=== PATIENT | female | born 1995 | race Caucasian/White ===

== ENCOUNTER 2019-02-26 15:30 | Emergency (ER) | payer BC ==
[2019-02-26] MEDS ORDERED: SODIUM CHLORIDE 0.9% 1,000 ML IV STA (16:19)
[2019-02-26] MEDS ORDERED: diphenhydrAMINE 50 MG/ML 1 ML VIAL IVP STA (16:20)
[2019-02-26] MEDS ORDERED: ONDANSETRON 4 MG/2 ML VIAL IVP STA (16:20)
--- NOTE | 2019-02-26 16:22 | ED ---
General Adult HPI - General Chief complaint: Headache Stated complaint: headache and dizziness Time Seen by Provider: 02/26/19 16:06 Source: patient Mode of arrival: wheelchair Limitations: no limitations - History of Present Illness Initial comments: Dictation was produced using [employer] dictation software. please excuse any grammatical, word or spelling errors. Chief Complaint: 23-year-old female presents with 8 days of headache and neck pain. History of Present Illness: Patient's 23-year-old female. Over the last 8 days she's been having headaches. She states the headaches are worse in the morning. She states that her neck is been hurting more than usual patient states that it's in the left posterior occiput area. Denies any neuro deficits. No vision changes. Patient states that pain is worse when lying down and sitting up. Patient denies any history of trauma. Patient is possibly . Patient fe els asymptomatic at this time. The ROS documented in this emergency department record has been reviewed and confirmed by me. Those systems with pertinent positive or negative responses have been documented in the HPI. All other systems are other negative and/or noncontributory. PHYSICAL EXAM: General Impression: Alert and oriented x3, not in acute distress HEENT: Normocephalic atraumatic, extra-ocular movements intact, pupils equal and reactive to light bilaterally, mucous membranes moist. Cardiovascular: Heart regular rate and rhythm, S1&S2 audible, no murmurs, rubs or gallops Chest: Lungs clear to auscultation bilaterally, no rhonchi, no wheeze, no rales Abdomen: Bowel sounds present, abdomen soft, non-tender, non-distended, no organomegaly Musculoskeletal: Pulses present and equal in all extremities, no peripheral edema Motor: no focal deficits noted Neurological: CN II-XII grossly intact, no focal motor or sensory deficits noted Skin: Intact with no visualized rashes Psych: Normal affect and mood ED course: 23yo Old female clinical presentation consistent with tension headache secondary to cervical strain. Signs upon arrival are within acceptable limits.Patient provided with headache cocktail patient. Reevaluated after several hours with improvement of symptoms. test negative. Patient prescription for Flexeril. Told to follow-up with PCP upon discharge. Return parameters discussed. - Related Data Previous Rx's Medication Instructions Recorded Ondansetron Odt [Zofran Odt] 4 mg PO Q8HR PRN #10 tab 12/12/14 Promethazine Suppository 25 mg RC QID #10 supp 12/12/14 [Phenergan] Cyclobenzaprine [Flexeril] 5 mg PO TID PRN #20 tablet 02/26/19 Allergies Allergy/AdvReac Type Severity Reaction Status Date / Time No Known Allergies Allergy Verified 02/26/19 15:41 Review of Systems ROS Statement: Those systems with pertinent positive or pertinent negative responses have been documented in the HPI. ROS Other: All systems not noted in ROS Statement are negative. Past Medical History Past Medical History: No Reported History History of Any Multi-Drug Resistant Organisms: None Reported Past Surgical History: No Surgical Hx Reported Past Psychological History: No Psychological Hx Reported Smoking Status: Never smoker Past Alcohol Use History: Occasional Past Drug Use History: None Reported General Exam Limitations: no limitations Course Vital Signs 02/26/19 15:39 Temperature 98.3 F Pulse Rate 88 Respiratory 18 Rate Blood Pressure 141/103 O2 Sat by Pulse 100 Oximetry Medical Decision Making - Lab Data Lab Results 02/26/19 Range/Units 16:30 Urine HCG, Qual Not Detected (Not Detectd) Disposition Clinical Impression: Headache Disposition: HOME SELF-CARE Condition: Good Instructions (If sedation given, give patient instructions): Acute Headache (ED) Prescriptions: Cyclobenzaprine [Flexeril] 5 mg PO TID PRN #20 tablet PRN Reason: Pain Is patient prescribed a controlled substance at d/c from ED?: No Referrals: Jose Alejandro Segal MD [Primary Care Provider] - 1-2 days Time of Disposition: 17:54
[2019-02-26] MEDS ORDERED: KETOROLAC 30 MG/ML 1 ML VIAL IVP STA (17:10)
[2019-02-26 18:34] VITALS: BP 118/72; PULSE 70; RESP 16; TEMP 98.6
== END 2019-02-26 18:33 | disposition home or self-care (01) ==
LOC: EC 15:30
DX: R51 Headache (principal); M54.2 Cervicalgia
CPT/HCPCS: 81025; 99284; 96374; 96375 ×2; 96361; J1200; J2405; J1885

== ENCOUNTER → 2019-11-26 | Outpatient (CLI) | payer BC ==
--- NOTE | 2019-11-26 15:28 | US ---
EXAMINATION TYPE: US abdomen complete DATE OF EXAM: 11/26/2019 COMPARISON: NONE CLINICAL HISTORY: R10.11 right upper quadrant abdominal pain. Pain EXAM MEASUREMENTS: Liver Length: 16.6 cm Gallbladder Wall: .2 cm CBD: .5 cm Spleen: 9.8 cm Right Kidney: 9.2 x 3.3 x 4.0 cm Left Kidney: 10.5 x 4.9 x 3.8 cm Pancreas: Obscured by bowel gas Liver: wnl Gallbladder: wnl Evidence for sonographic Romano's sign: No CBD: wnl Spleen: wnl Right Kidney: wnl Left Kidney: wnl Upper IVC: wnl Abd Aorta: wnl IMPRESSION: 1. Normal abdomen ultrasound
== END | disposition home or self-care (01) ==
LOC: RADUSWWP 14:13
PROVIDERS: ATTEND Internal Medicine Hematology & Oncology
DX: R10.11 Right upper quadrant pain (principal)
CPT/HCPCS: 76700

== ENCOUNTER 2020-07-15 03:06 | Emergency (ER) | payer BC ==
[2020-07-15 03:15] VITALS: RESP 18
--- NOTE | 2020-07-15 03:59 | ED ---
General Adult HPI - General Chief complaint: Shortness of Breath Stated complaint: BETTY Time Seen by Provider: 07/15/20 03:27 Source: patient Mode of arrival: ambulatory Limitations: no limitations - History of Present Illness Initial comments: Charito is a 25 yo female with PMH of brain tumor treated with resection, chemo and radiation in the past 15 mo. patient presents the ER today for evaluation of shortness of breath, subjective fever, chills, night sweats, shortness of breath, sore throat and URI-like symptoms. Patient does report she may have had contact with people with COVID 19 she was recently traveling and she has attended to weddings in the past month. Patient reports she's been feeling okay over the past week while traveling to the , however tonight she began to have sudden onset of symptoms prompted her come the ER for evaluation. - Related Data Previous Rx's Medication Instructions Recorded Ondansetron Odt [Zofran Odt] 4 mg PO Q8HR PRN #10 tab 12/12/14 Promethazine Suppository 25 mg RC QID #10 supp 12/12/14 [Phenergan] Cyclobenzaprine [Flexeril] 5 mg PO TID PRN #20 tablet 02/26/19 Pantoprazole [Protonix] 40 mg PO DAILY 14 Days #14 11/26/19 tablet. Allergies Allergy/AdvReac Type Severity Reaction Status Date / Time No Known Allergies Allergy Verified 07/15/20 03:15 Review of Systems ROS Statement: Those systems with pertinent positive or pertinent negative responses have been documented in the HPI. ROS Other: All systems not noted in ROS Statement are negative. Past Medical History Past Medical History: Cancer Additional Past Medical History / Comment(s): brain cancer History of Any Multi-Drug Resistant Organisms: None Reported Past Surgical History: No Surgical Hx Reported Additional Past Surgical History / Comment(s): craniotomy 2019 Past Psychological History: Depression Smoking Status: Never smoker Past Alcohol Use History: Occasional Past Drug Use History: None Reported General Exam - General Exam Comments Initial Comments: Physical Exam GENERAL: Patient is well-developed and well-nourished. Patient is nontoxic and well-hydrated and is in no distress. HENT: s/p craniotomy Atraumatic. EYES: PERRL, EOMI PULMONARY: Unlabored respirations. No audible rales rhonchi or wheezing was noted. CARDIOVASCULAR: There is a regular rate and rhythm without any murmurs gallops or rubs. ABDOMEN: Soft and nontender with normal bowel sounds. SKIN: Skin is clear with no lesions or rashes and otherwise unremarkable. : Deferred NEUROLOGIC: Patient is alert and oriented x3. Moving all extremities spontaneously MUSCULOSKELETAL: Normal extremities with adequate strength and full range of motion. No lower extremity swelling or edema. No calf tenderness. PSYCHIATRIC: Normal psychiatric evaluation. Limitations: no limitations Course Vital Signs 07/15/20 07/15/20 07/15/20 03:11 04:14 05:55 Temperature 98.7 F 100.3 F H Pulse Rate 91 89 Respiratory 18 18 18 Rate Blood Pressure 115/81 117/73 O2 Sat by Pulse 97 97 Oximetry EKG Findings - EKG Comments: EKG Findings:: Patient refused Medical Decision Making - Medical Decision Making Patient was seen and evaluated history is obtained from the patient 25-year-old female with normal vital signs reports subjective shortness of breath, fevers, chills and fatigue Patient could have had exposure to COVID 19 if she has been out socializing though she does report wearing her mask at all times Labs, chest x-ray, EKG were ordered Patient declined EKG when stated reason why but stated she didn't feel like she needed one CBC with leukocytosis, neutrophilia, and lymphocytopenia D-dimer is elevated Ferratin and LDH will be added onto the labs which were already obtained Results were discussed with the patient. I did recommend a CT pulmonary embolism study. Patient has had 2 in the past due to elevated d-dimer's. She has never had blood clot. Given her lab findings and possible exposure do have concern the patient could have COVID 19. This result was discussed with the patient. She was swabbed for COVID 19. At this time patient understands cannot absolutely rule out pulmonary embolism with out a computed tomography scan, however due to her concern for exposure to radiation patient would still like to decline. Patient has no tachycardia or hypoxia. Patient does understand she could be infected with COVID 19. She will quarantine herself in the home. A work note was provided for her as well who needs to 14 until the patient's testes either negative or quarantine for weeks if her test is positive. They both expressed understanding of this. Very close return parameters including any worsening chest pain, palpitation shortness of breath or new or concerning symptoms were discussed with the p shiloh. Patient discharged Home in stable condition - Lab Data Result diagrams: 07/15/20 04:08 07/15/20 04:08 Lab Results 07/15/20 07/15/20 07/15/20 Range/Units 04:08 04:08 04:08 WBC 14.9 H (3.8-10.6) k/uL RBC 4.49 (3.80-5.40) m/uL Hgb 13.4 (11.4-16.0) gm/dL Hct 40.7 (34.0-46.0) % MCV 90.6 (80.0-100.0) fL MCH 29.8 (25.0-35.0) pg MCHC 32.9 (31.0-37.0) g/dL RDW 12.8 (11.5-15.5) % Plt Count 287 (150-450) k/uL Neutrophils % 90 % Lymphocytes % 6 % Monocytes % 3 % Eosinophils % 1 % Basophils % 0 % Neutrophils # 13.4 H (1.3-7.7) k/uL Lymphocytes # 0.8 L (1.0-4.8) k/uL Monocytes # 0.5 (0-1.0) k/uL Eosinophils # 0.1 (0-0.7) k/uL Basophils # 0.0 (0-0.2) k/uL PT 9.3 (9.0-12.0) sec INR 0.9 (<1.2) APTT 25.0 (22.0-30.0) sec D-Dimer 1.31 H (<0.60) mg/L FEU Sodium 137 (137-145) mmol/L Potassium 4.3 (3.5-5.1) mmol/L Chloride 104 (98-107) mmol/L Carbon Dioxide 28 (22-30) mmol/L Anion Gap 5 mmol/L BUN 17 (7-17) mg/dL Creatinine 0.82 (0.52-1.04) mg/dL Est GFR (CKD-EPI)AfAm >90 (>60 ml/min/1.73 sqM) Est GFR (CKD-EPI)NonAf >90 (>60 ml/min/1.73 sqM) Glucose 103 H (74-99) mg/dL Calcium 9.2 (8.4-10.2) mg/dL Total Bilirubin 0.4 (0.2-1.3) mg/dL AST 24 (14-36) U/L ALT 16 (4-34) U/L Alkaline Phosphatase 70 (38-126) U/L Lactate Dehydrogenase (313-618) U/L Troponin I (0.000-0.034) ng/mL Total Protein 7.1 (6.3-8.2) g/dL Albumin 4.0 (3.5-5.0) g/dL Urine HCG, Qual (Not Detectd) 07/15/20 07/15/20 07/15/20 Range/Units 04:08 05:27 05:27 WBC (3.8-10.6) k/uL RBC (3.80-5.40) m/uL Hgb (11.4-16.0) gm/dL Hct (34.0-46.0) % MCV (80.0-100.0) fL MCH (25.0-35.0) pg MCHC (31.0-37.0) g/dL RDW (11.5-15.5) % Plt Count (150-450) k/uL Neutrophils % % Lymphocytes % % Monocytes % % Eosinophils % % Basophils % % Neutrophils # (1.3-7.7) k/uL Lymphocytes # (1.0-4.8) k/uL Monocytes # (0-1.0) k/uL Eosinophils # (0-0.7) k/uL Basophils # (0-0.2) k/uL PT (9.0-12.0) sec INR (<1.2) APTT (22.0-30.0) sec D-Dimer (<0.60) mg/L FEU Sodium (137-145) mmol/L Potassium (3.5-5.1) mmol/L Chloride (98-107) mmol/L Carbon Dioxide (22-30) mmol/L Anion Gap mmol/L BUN (7-17) mg/dL Creatinine (0.52-1.04) mg/dL Est GFR (CKD-EPI)AfAm (>60 ml/min/1.73 sqM) Est GFR (CKD-EPI)NonAf (>60 ml/min/1.73 sqM) Glucose (74-99) mg/dL Calcium (8.4-10.2) mg/dL Total Bilirubin (0.2-1.3) mg/dL AST (14-36) U/L ALT (4-34) U/L Alkaline Phosphatase (38-126) U/L Lactate Dehydrogenase 534 (313-618) U/L Troponin I <0.012 (0.000-0.034) ng/mL Total Protein (6.3-8.2) g/dL Albumin (3.5-5.0) g/dL Urine HCG, Qual Not Detected (Not Detectd) Disposition Clinical Impression: Shortness of breath with exposure to COVID-19 virus Disposition: HOME SELF-CARE Condition: Stable Additional Instructions: You need to Quarantine as though you are COVID19 positive Your test should result in 1-3 days, you will be called if it is positive Return to the ER for any worsening or development of new or concerning symptoms Is patient prescribed a controlled substance at d/c from ED?: No Referrals: Jose Alejandro Segal MD [Primary Care Provider] - 1-2 days
[2020-07-15 04:18] LABS: Basophils % (A) 0 %; Eosinophils # (A) 0.1 k/uL (0-0.7); Eosinophils % (A) 1 %; HCT 40.7 % (34.0-46.0); HGB 13.4 gm/dL (11.4-16.0); Lymphocytes # (A) 0.8 k/uL (1.0-4.8); Lymphocytes % (A) 6 %; MCH 29.8 pg (25.0-35.0); MCHC 32.9 g/dL (31.0-37.0); MCV 90.6 fL (80.0-100.0); Mean Platelet Volume 7.2; Monocytes # (A) 0.5 k/uL (0-1.0); Monocytes % (A) 3 %; Neutrophils # (A) 13.4 k/uL (1.3-7.7); Neutrophils % (A) 90 %; Platelet Count 287 k/uL (150-450); RBC 4.49 m/uL (3.80-5.40); RDW 12.8 % (11.5-15.5); WBC 14.9 k/uL (3.8-10.6)
--- NOTE | 2020-07-15 04:22 | XR ---
EXAMINATION TYPE: XR chest 2V DATE OF EXAM: 07/15/2020 COMPARISON: 12/12/2014 HISTORY: Cough TECHNIQUE: 2 views FINDINGS: Heart and mediastinum are normal. Lungs are clear. Diaphragm is normal. Bony thorax appears normal. IMPRESSION: Normal chest. No change.
[2020-07-15 04:28] LABS: ALT 16 U/L (4-34); AST 24 U/L (14-36); African American GFR (CKD) >90 (>60 ml/min/1.73 sqM); Alkaline Phosphatase 70 U/L (38-126); Anion Gap 5 mmol/L; Blood Urea Nitrogen 17 mg/dL (7-17); Calcium 9.2 mg/dL (8.4-10.2); Carbon Dioxide 28 mmol/L (22-30); Chloride 104 mmol/L (98-107); Glucose 103 mg/dL (74-99); Non-African American GFR(CKD) >90 (>60 ml/min/1.73 sqM); Potassium 4.3 mmol/L (3.5-5.1); Sodium 137 mmol/L (137-145); Total Bilirubin 0.4 mg/dL (0.2-1.3); Total Protein 7.1 g/dL (6.3-8.2)
[2020-07-15 04:40] LABS: INR 0.9 (<1.2); Prothrombin Time 9.3 sec (9.0-12.0)
[2020-07-15 05:21] LABS: D-Dimer 1.31 mg/L FEU (<0.60)
[2020-07-15 05:56] VITALS: BP 117/73; PULSE 89; TEMP 100.3
[2020-07-15 09:32] LABS: Ferritin 24.5 ng/mL (10.0-291.0)
== END 2020-07-15 05:56 | disposition home or self-care (01) ==
LOC: EC 03:06
DX: R06.02 Shortness of breath (principal); R50.9 Fever, unspecified; R53.83 Other fatigue; D72.829 Elevated white blood cell count, unspecified; D72.810 Lymphocytopenia; R79.89 Other specified abnormal findings of blood chemistry; Z20.828 Contact with and (suspected) exposure to other viral communicable diseases; Z85.841 Personal history of malignant neoplasm of brain
CPT/HCPCS: 36415; 85379; 80053; 82728; 83615; 84484; 85025; 85610; 85730; 81025; 71046; 99285; U0003

== ENCOUNTER 2020-08-29 18:40 | Emergency (ER) | payer BC ==
[2020-08-29 18:53] VITALS: RESP 16; TEMP 98.1
--- NOTE | 2020-08-29 19:33 | ED ---
General Adult HPI - General Chief complaint: Dizziness Stated complaint: Dizziness Time Seen by Provider: 08/29/20 19:09 Source: patient, RN notes reviewed, old records reviewed Mode of arrival: wheelchair Limitations: no limitations - History of Present Illness Initial comments: 25-year-old female patient to ED for evaluation. Patient reports that she has a glioblastoma removed last year. She reports that she developed some dizziness earlier today when she tilts her head back. She reports this was her primary symptom when she presented for the glioblastoma so she is concerned about that. She denies any chest pain shortness of breath or any other acute complaints. She is not currently undergoing any chemotherapy. Systemic: Pt denies fatigue, fever/chills, rash. Pt denies weakness, night sweats, weight loss. Neuro: Pt denies headache, visual disturbances, syncope or pre-syncope. HEENT: Pt denies ocular discharge or irritation, otalgia, rhinorrhea, pharyngitis or notable lymphadenopathy. Cardiopulmonary: Pt denies chest pain, SOB, heart palpitations, dyspnea on exertion. Abdominal/GI: Pt denies abdominal pain, n/v/d. : Pt denies dysuria, burning w/ urination, frequency/urgency. Denies new onset urinary or bowel incontinence. MSK: Pt denies myalgia, loss of strength or function in extremities. Neuro: Pt denies new onset weakness, paresthesias. - Related Data Previous Rx's Medication Instructions Recorded Ondansetron Odt [Zofran Odt] 4 mg PO Q8HR PRN #10 tab 12/12/14 Promethazine Suppository 25 mg RC QID #10 supp 12/12/14 [Phenergan] Cyclobenzaprine [Flexeril] 5 mg PO TID PRN #20 tablet 02/26/19 Pantoprazole [Protonix] 40 mg PO DAILY 14 Days #14 11/26/19 tablet. Allergies Allergy/AdvReac Type Severity Reaction Status Date / Time No Known Allergies Allergy Verified 08/29/20 18:53 Review of Systems ROS Statement: Those systems with pertinent positive or pertinent negative responses have been documented in the HPI. ROS Other: All systems not noted in ROS Statement are negative. Past Medical History Past Medical History: Cancer Additional Past Medical History / Comment(s): brain cancer History of Any Multi-Drug Resistant Organisms: None Reported Past Surgical History: No Surgical Hx Reported Additional Past Surgical History / Comment(s): craniotomy 2019 Past Psychological History: Depression Smoking Status: Never smoker Past Alcohol Use History: Rare Past Drug Use History: None Reported General Exam - General Exam Comments Initial Comments: Constitutional: NAD, AOX3, Pt has pleasant affect. HEENT: NC/AT, trachea midline, neck supple, no lymphadenopathy. Posterior pharynx non erythematous, without exudates. External ears appear normal, without discharge. Mucous membranes moist. Eyes PERRLA, EOM intact. There is no scleral icterus. No pallor noted. Cardiopulmonary: RRR, no murmurs, rubs or gallops, no JVD noted. Lungs CTAB in anterior and posterior concepcion. No peripheral edema. Abdominal exam: Abdomen soft and non-distended. Abdomen non-tender to palpation in all 4 quadrants. Bowel sounds active in LLQ. No hepatosplenomegaly. No ecchymosis Neuro: CN II-XII grossly intact. No nuchal rigidity. No raccon eyes, no knott sign, no hemotympanum. No cervical spinal tenderness. MSK: Full active ROM in upper and lower extremities, 5/5 stregnth. Limitations: no limitations Course Vital Signs 08/29/20 18:49 Temperature 98.1 F Pulse Rate 66 Respiratory 16 Rate Blood Pressure 118/78 O2 Sat by Pulse 98 Oximetry Medical Decision Making - Medical Decision Making 25 old female patient to ED for dizziness when she tilts her head back. Began about 2 hours ago. Patient's history of glioblastoma with resection and she is concerned about possible recurrence. She is denying any headache. Neurologic exam is intact. The investigations are unremarkable. Patient is adamantly declining CT due to concern for radiation. I discussed that without intracranial imaging we could not rule out potential life threatening acute process. Patient is also declining EKG. Patient will be provided a order for an MRI of her brain with results to her oncologist at her request. Pt is declining acute complaints at time of discharge. We'll discharge the patient follow up and re turn precautions. Case discussed with Dr. Carolina. - Lab Data Result diagrams: 08/29/20 19:32 08/29/20 19:32 Lab Results 08/29/20 08/29/20 08/29/20 Range/Units 19:32 19:32 19:32 WBC 7.7 (3.8-10.6) k/uL RBC 4.50 (3.80-5.40) m/uL Hgb 13.5 (11.4-16.0) gm/dL Hct 39.5 (34.0-46.0) % MCV 87.8 (80.0-100.0) fL MCH 29.9 (25.0-35.0) pg MCHC 34.0 (31.0-37.0) g/dL RDW 12.4 (11.5-15.5) % Plt Count 213 (150-450) k/uL MPV 7.2 Neutrophils % 74 % Lymphocytes % 17 % Monocytes % 5 % Eosinophils % 1 % Basophils % 0 % Neutrophils # 5.7 (1.3-7.7) k/uL Lymphocytes # 1.3 (1.0-4.8) k/uL Monocytes # 0.4 (0-1.0) k/uL Eosinophils # 0.1 (0-0.7) k/uL Basophils # 0.0 (0-0.2) k/uL Sodium 139 (137-145) mmol/L Potassium 4.0 (3.5-5.1) mmol/L Chloride 106 (98-107) mmol/L Carbon Dioxide 27 (22-30) mmol/L Anion Gap 6 mmol/L BUN 17 (7-17) mg/dL Creatinine 0.91 (0.52-1.04) mg/dL Est GFR (CKD-EPI)AfAm >90 (>60 ml/min/1.73 sqM) Est GFR (CKD-EPI)NonAf 87 (>60 ml/min/1.73 sqM) Glucose 111 H (74-99) mg/dL Calcium 9.2 (8.4-10.2) mg/dL Magnesium 2.2 (1.6-2.3) mg/dL Total Bilirubin 0.3 (0.2-1.3) mg/dL AST 23 (14-36) U/L ALT 13 (4-34) U/L Alkaline Phosphatase 68 (38-126) U/L Total Protein 7.2 (6.3-8.2) g/dL Albumin 4.0 (3.5-5.0) g/dL Urine HCG, Qual Not Detected (Not Detectd) Disposition Clinical Impression: Dizziness Disposition: HOME SELF-CARE Condition: Stable Instructions (If sedation given, give patient instructions): Dizziness (ED) Additional Instructions: Follow up with PCP and your team of oncology and surgical specialists tomorrow. Call for MRI tomorrow. Return to ED with any worsening symptoms. Is patient prescribed a controlled substance at d/c from ED?: No Referrals: Jose Alejandro Segal MD [Primary Care Provider] - 1-2 days Anastacio Michael MD [STAFF PHYSICIAN] - 1-2 days
[2020-08-29 19:53] LABS: Basophils % (A) 0 %; Eosinophils # (A) 0.1 k/uL (0-0.7); Eosinophils % (A) 1 %; HCT 39.5 % (34.0-46.0); HGB 13.5 gm/dL (11.4-16.0); Lymphocytes # (A) 1.3 k/uL (1.0-4.8); Lymphocytes % (A) 17 %; MCH 29.9 pg (25.0-35.0); MCV 87.8 fL (80.0-100.0); Mean Platelet Volume 7.2; Monocytes # (A) 0.4 k/uL (0-1.0); Monocytes % (A) 5 %; Neutrophils # (A) 5.7 k/uL (1.3-7.7); Neutrophils % (A) 74 %; Platelet Count 213 k/uL (150-450); RDW 12.4 % (11.5-15.5); WBC 7.7 k/uL (3.8-10.6)
[2020-08-29 20:02] LABS: ALT 13 U/L (4-34); AST 23 U/L (14-36); African American GFR (CKD) >90 (>60 ml/min/1.73 sqM); Alkaline Phosphatase 68 U/L (38-126); Anion Gap 6 mmol/L; Blood Urea Nitrogen 17 mg/dL (7-17); Calcium 9.2 mg/dL (8.4-10.2); Carbon Dioxide 27 mmol/L (22-30); Chloride 106 mmol/L (98-107); Glucose 111 mg/dL (74-99); Magnesium 2.2 mg/dL (1.6-2.3); Non-African American GFR(CKD) 87 (>60 ml/min/1.73 sqM); Sodium 139 mmol/L (137-145); Total Bilirubin 0.3 mg/dL (0.2-1.3); Total Protein 7.2 g/dL (6.3-8.2)
[2020-08-29 21:07] VITALS: BP 113/76; PULSE 77
== END 2020-08-29 21:00 | disposition home or self-care (01) ==
LOC: EC 18:40
DX: R42 Dizziness and giddiness (principal); Z85.841 Personal history of malignant neoplasm of brain; Z98.890 Other specified postprocedural states
CPT/HCPCS: 36415; 80053; 81025; 83735; 85025; 99284

== ENCOUNTER 2021-05-19 23:40 | Emergency (ER) | payer BC ==
[2021-05-19 23:51] VITALS: BP 117/89; PULSE 88; RESP 24; TEMP 98.2
--- NOTE | 2021-05-20 00:57 | ED ---
Female Urogenital HPI - General Chief complaint: Urogenital Stated complaint: Urogenital Time Seen by Provider: 05/19/21 23:53 Source: patient Mode of arrival: ambulatory Limitations: no limitations - History of Present Illness Initial comments: Patient is a 26-year-old female presenting to the emergency emergency department with concerns for a tampon stuck in her vagina. Patient states that she last used tampon 2 days ago. She noticed an odor today and was able to feel the tampon was unable to retrieve it. She denies any fever or chills, no pelvic pain, no nausea or vomiting. She denies being . She has no further complaints. Last Menstrual Period: 05/16/21 - Related Data Previous Rx's Medication Instructions Recorded Ondansetron Odt [Zofran Odt] 4 mg PO Q8HR PRN #10 tab 12/12/14 Promethazine Suppository 25 mg RC QID #10 supp 12/12/14 [Phenergan] Cyclobenzaprine [Flexeril] 5 mg PO TID PRN #20 tablet 02/26/19 Pantoprazole [Protonix] 40 mg PO DAILY 14 Days #14 11/26/19 tablet. Doxycycline Monohydrate [Monodox] 100 mg PO BID 5 Days #10 cap 05/20/21 Allergies Allergy/AdvReac Type Severity Reaction Status Date / Time No Known Allergies Allergy Verified 05/19/21 23:51 Review of Systems ROS Statement: Those systems with pertinent positive or pertinent negative responses have been documented in the HPI. ROS Other: All systems not noted in ROS Statement are negative. Past Medical History Past Medical History: Cancer Additional Past Medical History / Comment(s): brain cancer History of Any Multi-Drug Resistant Organisms: None Reported Past Surgical History: No Surgical Hx Reported Additional Past Surgical History / Comment(s): craniotomy 2019 Past Psychological History: Depression Smoking Status: Never smoker Past Alcohol Use History: Rare Past Drug Use History: None Reported General Exam - General Exam Comments Initial Comments: GENERAL: Patient is well-developed and well-nourished. Patient is nontoxic and in no acute distress. HEAD: Atraumatic, normocephalic. EYES: Pupils equal round and reactive to light, extraocular movements intact, sclera anicteric, conjunctiva are normal. Eyelids were unremarkable. LUNGS: Unlabored respirations. Breath sounds clear to auscultation bilaterally and equal. No wheezes rales or rhonchi. HEART: Regular rate and rhythm without murmurs, rubs or gallops. ABDOMEN: Soft, nontender, normoactive bowel sounds. No guarding, no rebound. No masses appreciated. MUSCULOSKELETAL: Normal extremities with adequate strength and normal range of motion, no pitting or edema. No clubbing or cyanosis. NEUROLOGICAL: Patient is alert and oriented x 3. SKIN: Warm, Dry, normal turgor, no rashes or lesions noted. Limitations: no limitations External exam: Present: normal external exam Speculum exam: Present: foreign body (Tampon) By manual exam: Present: normal by manual exam Course Vital Signs 05/19/21 23:45 Temperature 98.2 F Pulse Rate 88 Respiratory 24 Rate Blood Pressure 117/89 O2 Sat by Pulse 99 Oximetry Procedures - Procedures Initial comment: Foreign body removal from vagina: forceps are used to remove a tampon. She tolerated procedure well. No complications. Medical Decision Making - Medical Decision Making Patient is a 26-year-old female here with a tampon stuck. No fevers, no abdominal pain. I was able to retrieve the tampon without, occasions. I will put her on a few days of antibiotic. Patient is agreement with this plan of care. She'll follow-up with her physician as needed. Return parameters were discussed with her and she verbalized understanding. Disposition Clinical Impression: Vaginal foreign body Disposition: HOME SELF-CARE Condition: Stable Instructions (If sedation given, give patient instructions): Vaginal Foreign Body (ED) Additional Instructions: Please return to the Emergency Department if symptoms worsen or any other concerns. Take antibiotic as prescribed. Prescriptions: Doxycycline Monohydrate [Monodox] 100 mg PO BID 5 Days #10 cap Is patient prescribed a controlled substance at d/c from ED?: No Referrals: Jose Alejandro Segal MD [Primary Care Provider] - 1-2 days Time of Disposition: 00:55
== END 2021-05-20 01:05 | disposition home or self-care (01) ==
LOC: EC 23:40
DX: T19.2XXA Foreign body in vulva and vagina, initial encounter (principal); W45.8XXA Other foreign body or object entering through skin, initial encounter
CPT/HCPCS: 99283

== ENCOUNTER 2022-07-23 16:50 | Emergency (ER) | payer MEDICARE ==
[2022-07-23 17:13] VITALS: RESP 18; TEMP 98.3
[2022-07-23] MEDS ORDERED: SODIUM CHLORIDE 0.9% 1,000 ML IV STA (17:36)
--- NOTE | 2022-07-23 17:45 | ED ---
Dizziness HPI - General Source: patient, family, RN notes reviewed, old records reviewed Mode of arrival: ambulatory Limitations: no limitations - History of Present Illness MD Complaint: dizziness, near syncope -: month(s) Timing: constant Description: off-balance, difficulty walking, near-syncope History of Same: Yes History of Trauma: No Improves With: rest Worsens With: position <Rudy Watters - Last Filed: 07/23/22 19:20> <Sukh Nicholas - Last Filed: 07/23/22 20:02> - General Chief Complaint: Dizziness Stated Complaint: Dizzy,HP issues,brain cancer Time Seen by Provider: 07/23/22 17:18 - History of Present Illness Initial Comments: 27-year-old female presents to the emergency room with complaints of dizziness with position changes ongoing for over a month but worse over the last 2 days. Patient states she does have a history of glioblastoma 2019 did undergo surgery radiation and chemotherapy. She states she was placed on Avastin for surrounding necrosis and stopped taking it in February. Due to her Avastin use she developed hypertension and was placed on hydrochlorothiazide. She states that more frequently she feels dizzy with position changes and today had 2 near syncopal episodes. Denies any chest pain or difficulty breathing, no headaches or focal motor deficits. 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 (Rudy Watters) - Related Data Home Medications Medication Instructions Recorded Confirmed norgestimate-ethinyl estradioL 1 tab PO DAILY 12/17/21 05/21/22 [Sprintec 28 Day Tablet] Escitalopram [Lexapro] 2 tab PO DAILY 12/31/21 05/21/22 Omeprazole 1 tab PO DAILY 12/31/21 05/21/22 Sucralfate [Carafate] 1 tab PO TID 12/31/21 05/21/22 buPROPion HCL [Wellbutrin XL] 1 tab PO DAILY 12/31/21 05/21/22 hydroCHLOROthiazide [Hydrodiuril] 25 mg PO DAILY 02/26/22 05/21/22 dexAMETHasone [Decadron] 8 mg PO DAILY 03/12/22 05/21/22 Previous Rx's Medication Instructions Recorded Ondansetron Odt [Zofran Odt] 4 mg PO Q8HR PRN #10 tab 12/12/14 Allergies Allergy/AdvReac Type Severity Reaction Status Date / Time No Known Allergies Allergy Verified 07/23/22 17:13 Review of Systems ROS Other: All systems not noted in ROS Statement are negative. <Rudy Watters - Last Filed: 07/23/22 19:20> ROS Other: All systems not noted in ROS Statement are negative. <Sukh Nicholas Madhav - Last Filed: 07/23/22 20:02> ROS Statement: Those systems with pertinent positive or pertinent negative responses have been documented in the HPI. Past Medical History Past Medical History: Cancer Additional Past Medical History / Comment(s): brain cancer-Glioblastoma History of Any Multi-Drug Resistant Organisms: None Reported Past Surgical History: No Surgical Hx Reported Additional Past Surgical History / Comment(s): craniotomy 2019 Past Psychological History: Depression Smoking Status: Never smoker Past Alcohol Use History: None Reported Past Drug Use History: None Reported <Rudy Watters - Last Filed: 07/23/22 19:20> General Exam Limitations: no limitations General appearance: alert, in no apparent distress Head exam: Present: atraumatic Eye exam: Absent: scleral icterus, conjunctival injection, periorbital swelling ENT exam: Present: mucous membranes moist Neck exam: Present: normal inspection, full ROM. Absent: tenderness, me ningismus Respiratory exam: Present: normal lung sounds bilaterally. Absent: respiratory distress, wheezes, rales, rhonchi, stridor, chest wall tenderness, accessory muscle use Cardiovascular Exam: Present: regular rate, normal heart sounds GI/Abdominal exam: Present: soft. Absent: distended, tenderness, guarding, rebound, rigid Neurological exam: Present: alert, oriented X3 Expanded Patient oriented to: Present: person, place, time Speech: Present: fluid speech Eye Response: (4) open spontaneously Motor Response: (6) obeys commands Verbal Response: (5) oriented [place] Total: 15 Psychiatric exam: Present: normal affect, normal mood Skin exam: Present: warm, dry, normal color. Absent: cyanosis, diaphoretic, pallor <Rudy Watters - Last Filed: 07/23/22 19:20> Course Vital Signs 07/23/22 07/23/22 17:09 19:11 Temperature 98.3 F Pulse Rate 119 H Pulse Rate [ 89 Pulse Oximetery ] Pulse Rate [ 112 H Standing Pulse Oximetery] Pulse Rate [ 89 Supine Pulse Oximetery] Respiratory 18 Rate Blood Pressure 126/83 Blood Pressure 123/89 [Right Arm Sitting] Blood Pressure 122/90 [Right Arm Standing] Blood Pressure 110/79 [Right Arm Supine] O2 Sat by Pulse 99 Oximetry EKG Findings - EKG Comments: EKG Findings:: EKG: Sinus rhythm rate of 83, SD interval 140, QRS duration 84, QTC 403, no ST segment changes. <Sukh Nicholas - Last Filed: 07/23/22 20:02> Medical Decision Making - Lab Data Result diagrams: 07/23/22 18:20 07/23/22 18:20 <Rudy Watters - Last Filed: 07/23/22 19:20> - Lab Data Result diagrams: 07/23/22 18:20 07/23/22 18:20 <Sukh Nicholas - Last Filed: 07/23/22 20:02> - Medical Decision Making Patient presents with complaints of dizziness with position changes worsening over the past month. Patient states she believes it is directly related to hydrochlorothiazide use. She was placed on hydrochlorothiazide after she was taking Avastin which elevated her blood pressure. She stopped taking Avastin in February but continues to take hydrochlorothiazide. Orthostatic blood pressures were taken showing an elevation in heart rate from s itting at 89 to standing 112 with patient symptomatic. Chest x-ray shows no acute cardiopulmonary disease or process. There is evidence of leukocytosis however patient did just finish a 5 day course of prednisone for Becerra's palsy last week. Electrolytes are unremarkable. Urinalysis is clear. Patient does have a history of glioblastoma and does have a follow-up appointment with Dr. Michael this . EKG is pending. IV fluids continue to infuse. Repeat vital signs and reassessment required. Case was signed out to Dr. Nicholas (Rudy Watters) Patient reevaluated, resting, fluid, symptoms improved with hydration. Patient has close follow-up with her oncologist. She will discontinue hydrochlorothiazide, drink plenty of fluid. She will return with worsening or changing symptoms. (Sukh Nicholas) - Lab Data Lab Results 07/23/22 07/23/2207/23/22 Range/Units 18:20 18:20 18:20 WBC 14.5 H (3.8-10.6) k/uL RBC 4.87 (3.80-5.40) m/uL Hgb 14.4 (11.4-16.0) gm/dL Hct 41.5 (34.0-46.0) % MCV 85.1 D (80.0-100.0) fL MCH 29.6 (25.0-35.0) pg MCHC 34.8 (31.0-37.0) g/dL RDW 12.9 (11.5-15.5) % Plt Count 261 (150-450) k/uL MPV 7.6 Neutrophils % 75 % Lymphocytes % 18 % Monocytes % 4 % Eosinophils % 1 % Basophils % 1 % Neutrophils # 10.9 H (1.3-7.7) k/uL Lymphocytes # 2.6 (1.0-4.8) k/uL Monocytes # 0.5 (0-1.0) k/uL Eosinophils # 0.2 (0-0.7) k/uL Basophils # 0.1 (0-0.2) k/uL Sodium 133 L (137-145) mmol/L Potassium 3.4 L (3.5-5.1) mmol/L Chloride 98 (98-107) mmol/L Carbon Dioxide 24 (22-30) mmol/L Anion Gap 11 mmol/L BUN 9 (7-17) mg/dL Creatinine 0.74 (0.52-1.04) mg/dL Est GFR (CKD-EPI)AfAm >90 (>60 ml/min/1.73 sqM) Est GFR (CKD-EPI)NonAf >90 (>60 ml/min/1.73 sqM) Glucose 81 (74-99) mg/dL Calcium 9.2 (8.4-10.2) mg/dL Total Bilirubin 0.4 (0.2-1.3) mg/dL AST 22 (14-36) U/L ALT 26 (4-34) U/L Alkaline Phosphatase 104 (38-126) U/L Total Protein 7.0 (6.3-8.2) g/dL Albumin 4.1 (3.5-5.0) g/dL Urine Color Light Yellow Urine Appearance Clear (Clear) Urine pH 6.0 (5.0-8.0) Ur Specific [place] 1.008 (1.001-1.035) Urine Protein Negative (Negative) Urine Glucose (UA) Negative (Negative) Urine Ketones Negative (Negative) Urine Blood Negative (Negative) Urine Nitrite Negative (Negative) Urine Bilirubin Negative (Negative) Urine Urobilinogen <2.0 (<2.0) mg/dL Ur Leukocyte Esterase Negative (Negative) Disposition Is patient prescribed a controlled substance at d/c from ED?: No <Rudy Watters - Last Filed: 07/23/22 19:20> <Sukh Nicholas - Last Filed: 07/23/22 20:02> Clinical Impression: Orthostatic hypotension, Near syncope Disposition: HOME SELF-CARE Condition: Good Instructions (If sedation given, give patient instructions): Syncope (ED) Additional Instructions: Increase your fluid intake. Change positions slowly. Do not drive until mal red by a primary care doctor. Discontinue hydrochlorothiazide keep diary of your blood pressure each morning. Follow-up with your primary care doctor this week. Keep your appointment with your oncologist as scheduled. Return to the emergency room with any new or concerning symptoms. Referrals: Elizabeth Zapata NPC [REFERRING] - 1-2 days
[2022-07-23 18:28] LABS: Appearance,Urine Clear (Clear); Basophils # (A) 0.1 k/uL (0-0.2); Basophils % (A) 1 %; Bilirubin,Urine Negative (Negative); Blood,Urine Negative (Negative); Color,Urine Light Yellow; Eosinophils # (A) 0.2 k/uL (0-0.7); Eosinophils % (A) 1 %; Glucose,Urine (UA) Negative (Negative); HCT 41.5 % (34.0-46.0); HGB 14.4 gm/dL (11.4-16.0); Ketones,Urine Negative (Negative); Leukocyte Esterase,Urine Negative (Negative); Lymphocytes # (A) 2.6 k/uL (1.0-4.8); Lymphocytes % (A) 18 %; MCH 29.6 pg (25.0-35.0); MCHC 34.8 g/dL (31.0-37.0); Mean Platelet Volume 7.6; Monocytes # (A) 0.5 k/uL (0-1.0); Monocytes % (A) 4 %; Neutrophils # (A) 10.9 k/uL (1.3-7.7); Neutrophils % (A) 75 %; Nitrite,Urine Negative (Negative); Platelet Count 261 k/uL (150-450); Protein,Urine Negative (Negative); RBC 4.87 m/uL (3.80-5.40); RDW 12.9 % (11.5-15.5); Specific Gravity,Urine 1.008 (1.001-1.035); Urobilinogen,Urine <2.0 mg/dL (<2.0); WBC 14.5 k/uL (3.8-10.6)
[2022-07-23 18:32] LABS: MCV 85.1 fL (80.0-100.0)
[2022-07-23 18:47] LABS: ALT 26 U/L (4-34); AST 22 U/L (14-36); African American GFR (CKD) >90 (>60 ml/min/1.73 sqM); Albumin 4.1 g/dL (3.5-5.0); Alkaline Phosphatase 104 U/L (38-126); Anion Gap 11 mmol/L; Blood Urea Nitrogen 9 mg/dL (7-17); Calcium 9.2 mg/dL (8.4-10.2); Carbon Dioxide 24 mmol/L (22-30); Chloride 98 mmol/L (98-107); Glucose 81 mg/dL (74-99); Non-African American GFR(CKD) >90 (>60 ml/min/1.73 sqM); Potassium 3.4 mmol/L (3.5-5.1); Sodium 133 mmol/L (137-145); Total Bilirubin 0.4 mg/dL (0.2-1.3)
--- NOTE | 2022-07-23 19:17 | XR ---
EXAMINATION TYPE: XR chest 2V DATE OF EXAM: 07/23/2022 7:00 PM COMPARISON: Chest radiographs from 07/15/2020 TECHNIQUE: XR chest 2V Frontal and lateral views of the chest. CLINICAL INDICATION:Female, 27 years old with history of syncope; FINDINGS: Lungs/Pleura: There is no evidence of pleural effusion, focal consolidation, or pneumothorax. Pulmonary vascularity: Unremarkable. Heart/mediastinum: Cardiomediastinal silhouette is unremarkable. Musculoskeletal: No acute osseous pathology. IMPRESSION: No acute cardiopulmonary disease/process.
[2022-07-23 20:11] VITALS: BP 124/88; PULSE 86
== END 2022-07-23 20:11 | disposition home or self-care (01) ==
LOC: EC 16:50
DX: I95.1 Orthostatic hypotension (principal); F32.A Depression, unspecified; Z79.899 Other long term (current) drug therapy
CPT/HCPCS: 36415; 71046; 80053; 81003; 85025; 93005; 96360; 99284

== ENCOUNTER 2022-07-30 19:13 | Emergency (ER) | payer MEDICARE ==
[2022-07-30] MEDS ORDERED: METOCLOPRAMIDE 5 MG/ML 2 ML VIAL IVP STA (21:36)
[2022-07-30] MEDS ORDERED: diphenhydrAMINE 50 MG/ML 1 ML VIAL IVP STA (21:36)
[2022-07-30] MEDS ORDERED: SODIUM CHLORIDE 0.9% 1,000 ML IV STA (21:36)
[2022-07-30] MEDS ORDERED: DEXAMETHASONE SOD PHOSPHATE 10 MG/ML 1 ML VIAL IV STA (21:36)
[2022-07-30] MEDS ORDERED: MAGNESIUM SULFATE-D5W PMX 1 GM in DEXTROSE/WATER 1 100ML.BAG IVPB ONE (21:36)
--- NOTE | 2022-07-30 21:37 | ED ---
Headache HPI - General Chief Complaint: Headache Stated Complaint: headache, glioblastoma Time Seen by Provider: 07/30/22 19:18 Mode of arrival: ambulatory Limitations: no limitations - History of Present Illness Initial Comments: 27-year-old female with past medical history of glioblastoma status post resection in 2019 who presents to the emergency room with reported headache. She reports that she began having a global headache yesterday. Took 800 mg ibuprofen at home without any improvement in her symptoms. Patient has history of glioblastoma that was resected in 2019 and then reoccurred in 2019. Patient went through chemo, radiation and gamma knife. Reports that throughout her treatment she has not had any headaches so this is different for her. Denies any head trauma. Does have blurred vision which has been chronic. Admits to nausea with one episode of vomiting. No fevers. No neck pain. Follows with an oncologist at [place]. She is scheduled to have an MRI on Friday. No other alleviating, precipitating or modifying factors - Related Data Home Medications Medication Instructions Recorded Confirmed norgestimate-ethinyl estradioL 1 tab PO DAILY 12/17/21 07/30/22 [Sprintec 28 Day Tablet] Omeprazole 40 tab PO DAILY 12/31/21 07/30/22 buPROPion HCL [Wellbutrin XL] 150 tab PO DAILY 12/31/21 07/30/22 hydroCHLOROthiazide [Hydrodiuril] 25 mg PO DAILY 02/26/22 07/30/22 Acyclovir [Zovirax] 400 mg PO BID 07/30/22 07/30/22 Escitalopram [Lexapro] 10 mg PO DAILY 07/30/22 07/30/22 Famotidine 40 mg PO DAILY 07/30/22 07/30/22 Allergies Allergy/AdvReac Type Severity Reaction Status Date / Time No Known Allergies Allergy Verified 07/30/22 20:09 Review of Systems ROS Statement: Those systems with pertinent positive or pertinent negative responses have been documented in the HPI. ROS Other: All systems not noted in ROS Statement are negative. Past Medical History Past Medical History: Cancer Additional Past Medical History / Comment(s): brain cancer-Glioblastoma History of Any Multi-Drug Resistant Organisms: None Reported Past Surgical History: No Surgical Hx Reported Additional Past Surgical History / Comment(s): craniotomy 2019 Past Psychological History: Depression Smoking Status: Never smoker Past Alcohol Use History: None Reported Past Drug Use History: None Reported General Exam Limitations: no limitations General appearance: alert, in no apparent distress Head exam: Present: atraumatic, normocephalic, other (right facial droop involving upper and lower face) Eye exam: Present: normal appearance, PERRL, EOMI. Absent: scleral icterus, conjunctival injection, periorbital swelling ENT exam: Present: normal exam, mucous membranes moist Neck exam: Present: normal inspection. Absent: tenderness, meningismus, lymphadenopathy Respiratory exam: Present: normal lung sounds bilaterally. Absent: respiratory distress, wheezes, rales, rhonchi, stridor Cardiovascular Exam: Present: regular rate, normal rhythm, normal heart sounds. Absent: systolic murmur, diastolic murmur, rubs, gallop, clicks GI/Abdominal exam: Present: soft, normal bowel sounds. Absent: distended, tenderness, guarding, rebound, rigid Extremities exam: Present: normal inspection, full ROM, normal capillary refill. Absent: tenderness, pedal edema, joint swelling, calf tenderness Back exam: Present: normal inspection Neurological exam: Present: alert, oriented X3, CN II-XII intact Psychiatric exam: Present: normal affect, normal mood Skin exam: Present: warm, dry, intact, normal color. Absent: rash Course Vital Signs 07/30/22 07/30/22 20:07 23:16 Temperature 98.5 F 98.1 F Pulse Rate 80 77 Respiratory 20 16 Rate Blood Pressure 124/83 112/79 O2 Sat by Pulse 99 95 Oximetry Medical Decision Making - Medical Decision Making Upon arrival patient is placed into room 9. Thorough history and physical exam was performed. IV access is established and laboratory studies are conducted. Patient is given Reglan, magnesium, Benadryl, Decadron and a liter bolus of normal saline. I did recommend CT imaging because of her history however patient refused. Patient is aware of the risks is not performing a repeat CT. Patient is agreeable to the risks and is just requesting medication administration. I did discuss results with the patient. Reports that her headache is gone at this time and would like to go home. I did discuss limitations of the workup at this time. Patient understood. She will be discharged home and is instructed to follow up with her oncologist and have her MRI performed. The patient has any recurrence of her symptoms or any new or worsening symptoms she needs to return to the emergency room. Patient agreeable and she was discharged home in stable condition - Lab Data Result diagrams: 07/30/22 21:55 07/30/22 21:55 Lab Results 07/30/22 07/30/22 Range/Units 21:55 21:55 WBC 10.6 (3.8-10.6) k/uL RBC 4.96 (3.80-5.40) m/uL Hgb 14.4 (11.4-16.0) gm/dL Hct 43.0 (34.0-46.0) % MCV 86.6 (80.0-100.0) fL MCH 28.9 (25.0-35.0) pg MCHC 33.4 (31.0-37.0) g/dL RDW 13.7 (11.5-15.5) % Plt Count 352 (150-450) k/uL MPV 8.2 Neutrophils % 80 % Lymphocytes % 14 % Monocytes % 4 % Eosinophils % 0 % Basophils % 0 % Neutrophils # 8.5 H (1.3-7.7) k/uL Lymphocytes # 1.5 (1.0-4.8) k/uL Monocytes # 0.5 (0-1.0) k/uL Eosinophils # 0.0 (0-0.7) k/uL Basophils # 0.0 (0-0.2) k/uL Sodium 136 L (137-145) mmol/L Potassium 4.5 (3.5-5.1) mmol/L Chloride 100 (98-107) mmol/L Carbon Dioxide 22 (22-30) mmol/L Anion Gap 14 mmol/L BUN 10 (7-17) mg/dL Creatinine 0.75 (0.52-1.04) mg/dL Est GFR (CKD-EPI)AfAm >90 (>60 ml/min/1.73 sqM) Est GFR (CKD-EPI)NonAf >90 (>60 ml/min/1.73 sqM) Glucose 85 (74-99) mg/dL Calcium 9.4 (8.4-10.2) mg/dL Total Bilirubin 0.4 (0.2-1.3) mg/dL AST 20 (14-36) U/L ALT 18 (4-34) U/L Alkaline Phosphatase 106 (38-126) U/L Total Protein 7.3 (6.3-8.2) g/dL Albumin 4.2 (3.5-5.0) g/dL Disposition Clinical Impression: Headache, Glioblastoma Disposition: HOME SELF-CARE Condition: Stable Instructions (If sedation given, give patient instructions): Acute Headache (ED) Additional Instructions: Follow-up with your scheduled MRI on Friday. If you have any new or worsening symptoms, you should return to the emergency department for further testing. Is patient prescribed a controlled substance at d/c from ED?: No Referrals: None,Stated [Primary Care Provider] - 1-2 days Time of Disposition: 23:01
[2022-07-30 22:11] LABS: Basophils % (A) 0 %; Eosinophils % (A) 0 %; HGB 14.4 gm/dL (11.4-16.0); Lymphocytes # (A) 1.5 k/uL (1.0-4.8); Lymphocytes % (A) 14 %; MCH 28.9 pg (25.0-35.0); MCHC 33.4 g/dL (31.0-37.0); MCV 86.6 fL (80.0-100.0); Mean Platelet Volume 8.2; Monocytes # (A) 0.5 k/uL (0-1.0); Monocytes % (A) 4 %; Neutrophils # (A) 8.5 k/uL (1.3-7.7); Neutrophils % (A) 80 %; Platelet Count 352 k/uL (150-450); RBC 4.96 m/uL (3.80-5.40); RDW 13.7 % (11.5-15.5); WBC 10.6 k/uL (3.8-10.6)
[2022-07-30 22:21] LABS: ALT 18 U/L (4-34); AST 20 U/L (14-36); African American GFR (CKD) >90 (>60 ml/min/1.73 sqM); Albumin 4.2 g/dL (3.5-5.0); Alkaline Phosphatase 106 U/L (38-126); Anion Gap 14 mmol/L; Blood Urea Nitrogen 10 mg/dL (7-17); Calcium 9.4 mg/dL (8.4-10.2); Carbon Dioxide 22 mmol/L (22-30); Chloride 100 mmol/L (98-107); Glucose 85 mg/dL (74-99); Non-African American GFR(CKD) >90 (>60 ml/min/1.73 sqM); Potassium 4.5 mmol/L (3.5-5.1); Sodium 136 mmol/L (137-145); Total Bilirubin 0.4 mg/dL (0.2-1.3); Total Protein 7.3 g/dL (6.3-8.2)
[2022-07-30 23:17] VITALS: BP 112/79; PULSE 77; RESP 16; TEMP 98.1
== END 2022-07-30 23:16 | disposition home or self-care (01) ==
LOC: EC 19:13
DX: R51.9 Headache, unspecified (principal); C79.31 Secondary malignant neoplasm of brain; F32.A Depression, unspecified; Z79.899 Other long term (current) drug therapy
CPT/HCPCS: 36415; 80053; 85025; 99284; 96365; 96375 ×3; J1200; J1100; J2765; J3475

== ENCOUNTER 2022-09-08 05:41 | Inpatient (IN) | payer MEDICARE ==
[2022-09-08] MEDS ORDERED: SODIUM CHLORIDE 0.9% 500 ML 500 ML IV STA (06:13)
[2022-09-08] MEDS ORDERED: LORazepam 2 MG/ML INJ IV STA ×2 (06:15→07:16)
--- NOTE | 2022-09-08 06:25 | ED ---
Seizure HPI - General Chief Complaint: Seizure Stated Complaint: Seizures Time Seen by Provider: 09/08/22 06:03 Source: patient, EMS, RN notes reviewed Mode of arrival: EMS Limitations: no limitations - History of Present Illness Initial Comments: This a 27-year-old female presents emergency department via EMS for possible seizure. Patient states she just feels off states that she starts feeling different and states and she has a seizure. She states she is aware of the symptoms. Patient states she's had seizure in the past she states she is on Kep pra. Patient does have a history of glioblastoma which is starting to is 18 states that she had chemo radiation and gamma knife. Patient states that she still is receiving treatment for other glioblastoma's. Patient is followed by Dr. Acosta out of [facility], states she currently sees Dr. lees. Patient denies fevers chills no recent cough or cold like symptoms. Patient offers no other associated complaints. - Related Data Home Medications Medication Instructions Recorded Confirmed norgestimate-ethinyl estradioL 1 tab PO DAILY 12/17/21 07/30/22 [Sprintec 28 Day Tablet] Omeprazole 40 tab PO DAILY 12/31/21 07/30/22 buPROPion HCL [Wellbutrin XL] 150 tab PO DAILY 12/31/21 07/30/22 hydroCHLOROthiazide [Hydrodiuril] 25 mg PO DAILY 02/26/22 07/30/22 Acyclovir [Zovirax] 400 mg PO BID 07/30/22 07/30/22 Escitalopram [Lexapro] 10 mg PO DAILY 07/30/22 07/30/22 Famotidine 40 mg PO DAILY 07/30/22 07/30/22 Allergies Allergy/AdvReac Type Severity Reaction Status Date / Time No Known Allergies Allergy Verified 09/08/22 05:48 Review of Systems ROS Statement: Those systems with pertinent positive or pertinent negative responses have been documented in the HPI. ROS Other: All systems not noted in ROS Statement are negative. Past Medical History Past Medical History: Cancer Additional Past Medical History / Comment(s): brain cancer-Glioblastoma History of Any Multi-Drug Resistant Organisms: None Reported Past Surgical History: No Surgical Hx Reported Additional Past Surgical History / Comment(s): craniotomy 2019 Past Psychological History: Depression Smoking Status: Never smoker Past Alcohol Use History: None Reported Past Drug Use History: None Reported General Exam Limitations: no limitations General appearance: alert, in no apparent distress Head exam: Present: atraumatic, normocephalic, normal inspection Eye exam: Present: normal appearance, PERRL, EOMI. Absent: scleral icterus, conjunctival injection, periorbital swelling ENT exam: Present: normal exam, mucous membranes moist Neck exam: Present: normal inspection. Absent: tenderness, meningismus, lymphadenopathy Respiratory exam: Present: normal lung sounds bilaterally. Absent: respiratory distress, wheezes, rales, rhonchi, stridor Cardiovascular Exam: Present: regular rate, normal rhythm, normal heart sounds. Absent: systolic murmur, diastolic murmur, rubs, gallop, clicks Neurological exam: Present: alert, oriented X3, CN II-XII intact, reflexes normal. Absent: motor sensory deficit Skin exam: Present: warm, dry, intact, normal color. Absent: rash Course Vital Signs 09/08/22 09/08/22 09/08/22 05:49 07:53 08:00 Temperature 98.7 F Pulse Rate 72 78 78 Respiratory 15 18 18 Rate Blood Pressure 133/77 131/89 135/89 O2 Sat by Pulse 100 98 99 Oximetry - Reevaluation(s) Reevaluation #1: 09/08/22 06:24 EMS reported that seizure activity was not typical patient was not postictal after. Medical Decision Making - Medical Decision Making 19-year-old female presents from for possible seizure. Patient states is having seizure-like activity unclear this is truly seizure. Patient lives shortness of acidosis CT was obtained which show no acute changes just old changes from postsurgical. Patient will be admitted for EEG, neurology evaluation she was given a dose of Keppra. Patient was given Ativan concerns of possible seizure outpatient does not have significant postictal state symptoms seemed to worsen families in the room - Lab Data Result diagrams: 09/08/22 06:47 09/08/22 06:47 Lab Results 09/08/22 09/08/22 Range/Units 06:47 06:47 WBC 17.1 H (3.8-10.6) k/uL RBC 4.48 (3.80-5.40) m/uL Hgb 13.2 (11.4-16.0) gm/dL Hct 39.5 (34.0-46.0) % MCV 88.3 (80.0-100.0) fL MCH 29.4 (25.0-35.0) pg MCHC 33.3 (31.0-37.0) g/dL RDW 14.0 (11.5-15.5) % Plt Count 292 (150-450) k/uL MPV 7.9 Neutrophils % 88 % Lymphocytes % 6 % Monocytes % 4 % Eosinophils % 0 % Basophils % 1 % Neutrophils # 15.1 H (1.3-7.7) k/uL Lymphocytes # 1.1 (1.0-4.8) k/uL Monocytes # 0.6 (0-1.0) k/uL Eosinophils # 0.0 (0-0.7) k/uL Basophils # 0.1 (0-0.2) k/uL Sodium 134 L (137-145) mmol/L Potassium 4.1 (3.5-5.1) mmol/L Chloride 100 (98-107) mmol/L Carbon Dioxide 27 (22-30) mmol/L Anion Gap 7 mmol/L BUN 15 (7-17) mg/dL Creatinine 0.59 (0.52-1.04) mg/dL Est GFR (CKD-EPI)AfAm >90 (>60 ml/min/1.73 sqM) Est GFR (CKD-EPI)NonAf >90 (>60 ml/min/1.73 sqM) Glucose 127 H (74-99) mg/dL Calcium 8.6 (8.4-10.2) mg/dL Magnesium 1.8 (1.6-2.3) mg/dL Total Bilirubin 0.2 (0.2-1.3) mg/dL AST 21 (14-36) U/L ALT 24 (4-34) U/L Alkaline Phosphatase 78 (38-126) U/L Total Protein 6.6 (6.3-8.2) g/dL Albumin 3.9 (3.5-5.0) g/dL - EKG Data -: EKG Interpreted by Pr EKG Comments: EKG performed at 8:10 sinus rhythm with a rate of 75 GA 133 QRS 88 QT/QTC 371/401 Disposition Clinical Impression: New onset seizure Disposition: ADMITTED IP TO THIS [facility] Instructions (If sedation given, give patient instructions): Seizure/Epilepsy Discharge Instructions & Follow-Up Is patient prescribed a controlled substance at d/c from ED?: No Referrals: None,Stated [REFERRING] - 1-2 days Time of Disposition: 08:09
[2022-09-08] MEDS ORDERED: levETIRAcetam IV 1,000 MG in SALINE 1 100ML.BAG IVPB STA (07:08)
[2022-09-08 07:09] LABS: Basophils # (A) 0.1 k/uL (0-0.2); Basophils % (A) 1 %; Eosinophils % (A) 0 %; HCT 39.5 % (34.0-46.0); HGB 13.2 gm/dL (11.4-16.0); Lymphocytes # (A) 1.1 k/uL (1.0-4.8); Lymphocytes % (A) 6 %; MCH 29.4 pg (25.0-35.0); MCHC 33.3 g/dL (31.0-37.0); MCV 88.3 fL (80.0-100.0); Mean Platelet Volume 7.9; Monocytes # (A) 0.6 k/uL (0-1.0); Monocytes % (A) 4 %; Neutrophils # (A) 15.1 k/uL (1.3-7.7); Neutrophils % (A) 88 %; Platelet Count 292 k/uL (150-450); RBC 4.48 m/uL (3.80-5.40); WBC 17.1 k/uL (3.8-10.6)
[2022-09-08 07:19] LABS: ALT 24 U/L (4-34); AST 21 U/L (14-36); African American GFR (CKD) >90 (>60 ml/min/1.73 sqM); Albumin 3.9 g/dL (3.5-5.0); Alkaline Phosphatase 78 U/L (38-126); Anion Gap 7 mmol/L; Blood Urea Nitrogen 15 mg/dL (7-17); Calcium 8.6 mg/dL (8.4-10.2); Carbon Dioxide 27 mmol/L (22-30); Chloride 100 mmol/L (98-107); Glucose 127 mg/dL (74-99); Magnesium 1.8 mg/dL (1.6-2.3); Non-African American GFR(CKD) >90 (>60 ml/min/1.73 sqM); Potassium 4.1 mmol/L (3.5-5.1); Sodium 134 mmol/L (137-145); Total Bilirubin 0.2 mg/dL (0.2-1.3); Total Protein 6.6 g/dL (6.3-8.2)
--- NOTE | 2022-09-08 07:57 | CT ---
EXAMINATION TYPE: CT brain wo con CT DLP: 1126.4 mGycm, Automated exposure control for dose reduction was used. DATE OF EXAM: 09/08/2022 7:38 AM COMPARISON: None. CLINICAL INDICATION:Female, 27 years old with history of seizure activity, history of glioblastoma, S eizures TECHNIQUE: Brain: Axial CT images of the brain were obtained with coronal and sagittal reformats created and rev iewed. Contrast used: None. Oral contrast used: None. FINDINGS: Brain: Extra-axial spaces: No abnormal extra-axial fluid collections. Ventricular system: Within normal limits Cerebral parenchyma: No acute intraparenchymal hemorrhage or mass effect. The bautista-white junction is well differentiated. Cerebellum: Postsurgical changes to the left cerebellar hemisphere with encephalomalacia. Mass effect: No evidence of midline shift. Intracranial vasculature: unremarkable Soft tissues: Normal. Calvarium/osseous structures: No depressed skull fracture. Paranasal sinuses and mastoid air cells: Mild scattered paranasal sinus disease. Postsurgical changes to left posterior skull. Visualized orbits: Orbital contents are intact. IMPRESSION: 1. No acute intracranial process. 2. Postsurgical changes to the left posterior cranial fossa/left cerebral hemisphere.
[2022-09-08] MEDS ORDERED: ACETAMINOPHEN TAB 325 MG TAB PO PRN (08:41)
[2022-09-08] MEDS ORDERED: NALOXONE 0.4 MG/ML 1 ML VIAL IV PRN (08:41)
[2022-09-08] MEDS ORDERED: LORazepam 2 MG/ML INJ IV PRN (08:42)
[2022-09-08] MEDS ORDERED: KETOROLAC 15 MG/ML 1 ML VIAL IVP STA (09:34)
[2022-09-08] MEDS ORDERED: diphenhydrAMINE 50 MG/ML 1 ML VIAL IVP STA (09:34)
[2022-09-08] MEDS ORDERED: METOCLOPRAMIDE 5 MG/ML 2 ML VIAL IVP STA (09:34)
[2022-09-08] MEDS: SODIUM CHLORIDE 0.9% 1,000 ML IV SCH (09:44)
[2022-09-08 09:51] LABS: Appearance,Urine Clear (Clear); Bilirubin,Urine Negative (Negative); Blood,Urine Negative (Negative); Color,Urine Light Yellow; Glucose,Urine (UA) Negative (Negative); Ketones,Urine Negative (Negative); Leukocyte Esterase,Urine Negative (Negative); Nitrite,Urine Negative (Negative); Protein,Urine Negative (Negative); Specific Gravity,Urine 1.017 (1.001-1.035); Urobilinogen,Urine <2.0 mg/dL (<2.0)
[2022-09-08 10:08] LABS: Amphetamine Screen,Urine Not Detected (NotDetected); Barbiturate Screen,Urine Detected (NotDetected); Benzodiazepines Screen,Urine Detected (NotDetected); Cocaine Screen,Urine Not Detected (NotDetected); Methadone Screen, Urine Not Detected (NotDetected); Opiate Screen,Urine Not Detected (NotDetected); Oxycodone Screen, Urine Not Detected (NotDetected); Phencyclidine Screen,Urine Not Detected (NotDetected); Tricyclic Antidepressant,Urine Not Detected (NotDetected); Urn Cannabinoid Scrn Not Detected (NotDetected)
[2022-09-08] MEDS ORDERED: MORPHINE SULFATE 4 MG/ML SYRINGE IVP STA (10:15)
[2022-09-08] MEDS ORDERED: MORPHINE SULFATE 4 MG/ML SYRINGE IVP PRN (10:59)
[2022-09-08] MEDS ORDERED: DEXTROSE 50% SYRINGE 50 ML IVP PRN ×2 (15:15)
--- NOTE | 2022-09-08 16:50 | P.CNNES ---
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 Patient's ex- and patient's aunt were present today who provided very extensive history. Patient had 4 seizures this morning. Patient was in bed when she got out of bed, took a few steps, felt dizzy, got on her knees, eyes rolled up and she started falling backwards. Her boyfriend caught her and laid her down. She was shaking, eyes were rolled back in her head and she was gaspin g for air. Some sounds were coming from her throat. The seizure lasted for 1-1-1/2 minute. She did lose control of urine. After she woke up, she was confused but this postictal confusion resolved quickly, and she snapped out of it. They called 911, but patient declined to go to the hospital. She took a shower, and laid down in the bed. She was not feeling right. She had a second similar spell in which she lost bowel control. As per EMS flow sheet, they were called for seizures. When they arrived on the scene, found patient in her bed with snoring respirations. The family member on the scene advised that patient had a seizure this morning and it lasted for about 5 minutes. The family also informed that patient had a seizure a while ago and that EMS came early this morning but the patient refused transport. Patient became more oriented while being transported to the hospital. She informed the patient has seizures as well as brain cancer. Patient's vitals at the scene was blood pressure 15/70, pulse rate 86 respirations 16 saturation 99%, blood glucose 122. Patient's blood test showed WBC 17.1 hemoglobin 13.2, normal platelets. Sodium 134, other electrolytes, renal and hepatic panel are normal. UA negative, urine drug screen positive for benzodiazepine and barbitur ates. Computed tomography scan of the head showed no acute process. Postsurgical changes to the left posterior cranial fossa/left cerebral hemisphere. I personally reviewed CT head, agree with the findings except that the postsurgical changes is involving the left cerebellar hemisphere. EKG shows sinus rhythm with sinus arrhythmia. Patient's home medications include Wellbutrin XL 150 mg daily, Lexapro 10 mg, Zofran, hydrocodone 10 mg, Keppra 500 mg every 12 hours and Temodar. patient does not smoke tobacco, no alcohol, no diabetes. She does have blood pressure medication. MRI of the brain with and without contrast from 09/04/2022 at [facility] revealed postsurgical changes involving the left posterior fossa with nodular enhancement along the left cerebellar resection cavity, concerning for recurrent disease. There is a more peripherally enhancing component extending along the left middle cerebellar peduncle and into the medulla with associated restricted diffusion, but slightly also relates to recurrent disease, however component of infarct is not excluded. Additionally, there are multiple small foci of enhancement along the cerebellar folia, the largest focus in the cerebellar vermis superiorly measures up to 7 mm. Findings are concerning for additional sites of disease. 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 Patient was diagnosed with glioblastoma multiforme in March 2019. She underwent total resection and received Temodar for a few months. In June 2019 she underwent proton radiotherapy. She had clear scans for a while. Patient's X is not sure, if in December 2019 or 2020, there was recurrence of the disease for which she underwent gamma knife treatment. She has been on dexamethasone off and on. She has developed loss of hearing on the left side. She has developed left facial and tongue numbness and she often bites her inside of her cheek on the left side of the tongue bite eating on the left side. She has to chew on the right side. About 2-3 months ago, she developed right facial weakness and there was concern for possible "Becerra's palsy". Patient started having some syncopal spells since when she passed out and was shaking. Her side of the face felt twisted. About one week after , while she was at the [employer], she got dizzy and had to sit down. Friday before , she was talking slow, did not know anything, was repeating "November". When she tried to talk, she was making no sense. 10 minutes later, she was perfectly fine, able to converse normally. She underwent CT, MRI and lumbar puncture at [facility] and they saw two new spots. Patient had an episode on 09/03/2022 while she was watching [employer] she had 2- 3 spells, in which she developed numbness of right side, that lasted for 4-5 minutes. She had another spell while she was at the [employer] building in which she passed out, and has some shaking, but did not lose control of urine. (Patient's ex- and patient's aunt provided with multiple events, and above description as by understanding and depiction may not be accurate regarding timeframe). Patient follows up with Dr. Herve Abad neurosurgeon, and Dr. Michael her oncologist. Patient does not have a neurologist. Review of Systems Patient complains of headache in the "frontal lobe". Constitutional: Reports anorexia, Reports chronic headaches, Denies chills, Denies fever Eyes: bilateral diplopia, denies loss of vision Ears: left: decreased hearing, earache Ears, nose, mouth and throat: Reports headache, Denies sore throat Cardiovascular: Denies chest pain, Denies shortness of breath Respiratory: Denies cough Gastrointestinal: Denies abdominal pain, Denies diarrhea, Denies nausea, Denies vomiting Musculoskeletal: Denies myalgias Integumentary: Denies pruritus, Denies rash Neurological: Reports as per HPI Psychiatric: Reports confusion, Reports depression, Reports disorientation Endocrine: Reports fatigue, Denies weight change Hematologic/Lymphatic: Denies easy bruising Past Medical History Past Medical History: Cancer Additional Past Medical History / Comment(s): brain cancer-Glioblastoma History of Any Multi-Drug Resistant Organisms: None Reported Past Surgical History: No Surgical Hx Reported Additional Past Surgical History / Comment(s): craniotomy 2019 Past Psychological History: Depression Smoking Status: Never smoker Past Alcohol Use History: None Reported Past Drug Use History: None Reported Medications and Allergies Home Medications Medication Instructions Recorded Confirmed Type buPROPion HCL [Wellbutrin XL] 150 tab PO DAILY 12/31/21 09/08/22 History Escitalopram [Lexapro] 10 mg PO DAILY 07/30/22 09/08/22 History HYDROcodone/APAP 10-325MG [[place] 1 tab PO Q6HR 09/08/22 09/08/22 History 10-325] Ondansetron Odt [Zofran Odt] 4 mg PO Q6H PRN 09/08/22 09/08/22 History Temozolomide [Temodar] 180 mg PO DIRECTED 09/08/22 09/08/22 History levETIRAcetam [Keppra] 500 mg PO Q12HR 09/08/22 09/08/22 History Allergies Allergy/AdvReac Type Severity Reaction Status Date / Time No Known Allergies Allergy Verified 09/08/22 05:48 Physical Examination - Vital Signs Vital Signs: Vital Signs Temp Pulse Resp BP Pulse Ox 09/08/22 13:56 92 18 126/97 98 09/08/22 10:37 82 18 138/100 09/08/22 09:00 97 18 139/97 99 09/08/22 08:00 78 18 135/89 99 09/08/22 07:53 78 18 131/89 98 09/08/22 05:49 98.7 F 72 15 133/77 100 Intake and Output 09/08/22 09/08/22 09/08/22 06:59 14:59 22:59 Other: Weight 86.183 kg Patient is a young female, who is somnolent, possible postictal or mildly encephalopathic. Patient has received Ativan, therefore may be somnolent. Patient did wake up and became alert awake oriented to time place and person. She knows it is September 2022 and that she is in [facility] in [place]. Speech and language functions are normal. Patient can name and repeat very well. No aphasia or dysarthria. Attention, concentration and fund of knowledge is adequate. Patient has evidence of lip and tongue bite juan alberto on the left, which they believe is related to numbness of the left facial region. On cranial nerve examination, pupils are equal, round and reacting to light, visual concepcion are full on confrontation, with no neglect on double simultaneous stimulation. Patient has left lateral rectus weakness. Other extraocular muscles are intact with no nystagmus. Patient has slight right facial weakness. Her tongue protrudes to the left. Palatal elevation and sensation normal, hearing is decreased on the left and shoulder shrug normal, facial sensation decreased on the left. On muscle strength testing, there is left pronation, but no drift and the strength is normal in arms and legs distally and proximally. Deep tendon reflexes are symmetric biceps 2+, brachioradialis 2+, knees 3+, ankles 3+ and plantars are upgoing bilaterally. Sensory to touch is equal with no neglect on double simultaneous stimulation. Cerebellar function showed no ataxia for tzhost-lv-cbhe testing. No d ysdiadochokinesia. No ataxia for aodc-dk-mzwu testing on either side. Tone and bulk of muscles normal. Gait deferred.. On general examination, there is no carotid bruit or murmur, S1-S2 audible. Chest is clear on consultation. Abdomen is soft nontender. No organomegaly, bowel sounds present. Peripheral pulses are present. No edema. Results - Laboratory Findings CBC and BMP: 09/08/22 06:47 09/08/22 06:47 Abnormal Lab Findings: Abnormal Labs 09/08/22 09/08/22 09/08/22 06:47 06:47 09:25 WBC 17.1 H Neutrophils # 15.1 H Sodium 134 L Glucose 127 H Ur Barbiturates Screen Detected H U Benzodiazepines Scrn Detected H Assessment and Plan Assessment: * Probable focal seizures * Glioblastoma multiform, status post surgery, radiation and chemotherapy. Probable recent progression of the disease. 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 * Cephalalgia, possibly due to postictal state, possible due to progression of disease. Plan: * EEG evaluate for epileptiform activity. Patient may need prolonged EEG study as well in future. * Increase Keppra from 500 mg twice a day up to 1000 mg twice a day. * Discontinue Wellbutrin, as it can lower seizure threshold. * Fioricet as needed for headaches. If no improvement, patient will need opiat es. * Patient and family are requesting transfer to [facility] due to progression of the disease, and neurosurgical evaluation. * Patient does not have a neurologist outpatient. Patient and her family were strongly recommended to follow up with neurologist as an outpatient as well to manage seizure disorder. * Dr. Sal Centeno Will resume neurology service in the morning. Thank you for the consult. Time with Patient: Greater than 30 (Spent greater than 70 minutes. Complexity very high)
[2022-09-08 17:38] LABS: Glucose,Whole Blood 80 mg/dL (70-110)
[2022-09-08] MEDS ORDERED: BUTALB/APAP/CAFF 50-325-40MG TAB PO PRN (17:48)
[2022-09-08] MEDS: HYDROcodone/APAP 10-325MG 1 EACH TAB PO SCH (17:58)
[2022-09-08] MEDS: DEXAMETHASONE SOD PHOSPHATE 4 MG/ML 1 ML VIAL IVP SCH (17:59)
[2022-09-08] MEDS: INSULIN ASPART (NovoLOG) 100 UNIT/ML VIAL SQ SCH ×2 (18:04→20:19)
[2022-09-08 20:17] LABS: Glucose,Whole Blood 93 mg/dL (70-110)
[2022-09-08] MEDS: levETIRAcetam 500 MG TAB PO SCH (20:22)
--- NOTE | 2022-09-09 00:08 | HP ---
HISTORY AND PHYSICAL CHIEF COMPLAINT: Seizure. HISTORY OF PRESENT ILLNESS: This 27-year-old woman with a past history of glioblastoma, being followed by Dr. Michael and at [facility], was receiving multiple treatments and gene evaluations pending according to the family. Currently, the patient had multiple episodes of seizures this morning. Initially, the patient refused to come to the hospital but after of generalized tonic-clonic seizure, apparently returned, and the patient came to [facility] and admitted for further evaluation and treatment. There is no history of fever, rigors, chills. The patient is slightly drowsy at this time. Some tiny lip injury was also noted. PAST MEDICAL HISTORY: Glioblastoma, on multiple treatments. MEDICATIONS: Home medications include Zofran, doses and rest of medication noted. ALLERGIES: None. FAMILY HISTORY: No history of heart disease or strokes in the family. SOCIAL HISTORY: No history of smoking or alcohol intake. REVIEW OF SYSTEM: Fourteen-point review of systems is negative as mentioned earlier. PHYSICAL EXAMINATION: VITAL SIGNS: Pulse is 67, blood pressure 120/70, respirations 17. HEENT: Conjunctivae normal. NECK: No jugular venous distention. No carotid bruit. CARDIOVASCULAR: S1, S2. RESPIRATIONS: Diminished at the bases. No rhonchi, no crackles. ABDOMEN: Soft, nontender. LEGS: Nontender. NERVOUS SYSTEM: Diffusely weak. SKIN: No ulcer, rash, or bleeding. JOINTS: No active deforming arthropathy. LABORATORY DATA: WBC . Rest of the labs noted. ASSESSMENT: 1. Generalized tonic-clonic seizures. 2. Glioblastoma. 3. Elevated WBC. 4. Mild hyponatremia. RECOMMENDATIONS AND DISCUSSION: This is a 27-year-old woman who presented with multiple complex medical issues. We will monitor the patient closely. I would recommend neuro checks, Neurology evaluation. The patient is started on Keppra and I would also recommend IV dexamethasone and monitor blood sugars closely. DVT prophylaxis and Hematology/Oncology consultation. Overall prognosis guarded because of multiple complex medical issues. Further recommendations to follow. See orders for details. MMODL / IJN: [id number] /
[2022-09-09] MEDS: DEXAMETHASONE SOD PHOSPHATE 4 MG/ML 1 ML VIAL IVP SCH ×4 (00:15→18:02)
[2022-09-09] MEDS: SODIUM CHLORIDE 0.9% 1,000 ML IV SCH ×2 (00:15→12:55)
[2022-09-09] MEDS ORDERED: HYDROcodone/APAP 10-325MG 1 EACH TAB PO PRN (00:18)
[2022-09-09] MEDS: HYDROcodone/APAP 10-325MG 1 EACH TAB PO SCH (00:18)
[2022-09-09 07:09] LABS: Glucose,Whole Blood 110 mg/dL (70-110)
[2022-09-09] MEDS: INSULIN ASPART (NovoLOG) 100 UNIT/ML VIAL SQ SCH ×4 (08:11→20:25)
[2022-09-09] MEDS: levETIRAcetam 500 MG TAB PO SCH ×2 (08:43→20:35)
[2022-09-09] MEDS: ESCITALOPRAM 10 MG TAB PO SCH (08:44)
[2022-09-09 08:55] LABS: Basophils # (A) 0.08 X 10*3/uL (0.00-0.10); Basophils % (A) 0.5 %; Eosinophils # (A) 0 X 10*3/uL (0.04-0.35); Eosinophils % (A) 0 %; HCT 41.3 % (37.2-46.3); HGB 12.7 g/dL (12.0-15.0); Immature Grans, Automated 2.1 %; Lymphocytes # (A) 1.25 X 10*3/uL (0.90-5.00); MCH 28.2 pg (27.0-32.0); MCHC 30.8 g/dL (32.0-37.0); MCV 91.6 fL (80.0-97.0); Mean Platelet Volume 10.2 fL (9.5-12.2); Monocytes # (A) 1.06 X 10*3/uL (0.20-1.00); Monocytes % (A) 6.8 %; NRBC Per 100 WBC 0 /100 WBCS (0.0-0.0); Neutrophils # (A) 12.94 X 10*3/uL (1.80-7.70); Neutrophils % (A) 82.6 %; Platelet Count 315 X 10*3/uL (140-440); RBC 4.51 X 10*6/uL (4.10-5.20); RDW 14.3 % (11.5-14.5); WBC 15.66 X 10*3/uL (4.50-10.00)
[2022-09-09] MEDS ORDERED: [UNRECOGNIZED DRUG - OTHER] PO SCH (09:00)
[2022-09-09] MEDS ORDERED: buPROPion XL 150 MG TAB.ER.24H PO SCH (09:00)
[2022-09-09] MEDS ORDERED: TEMOZOLOMIDE PO SCH (09:00)
[2022-09-09 09:37] LABS: African American GFR (CKD) 136.7 (60.0-200.0); Anion Gap 13.7 mmol/L (10.00-18.00); BUN/Creat Ratio 25.29 Ratio (12.00-20.00); Blood Urea Nitrogen 17.7 mg/dL (9.0-27.0); Calcium 8.8 mg/dL (8.7-10.3); Carbon Dioxide 22.3 mmol/L (20.0-27.5); Non-African American GFR(CKD) 117.9 (60.0-200.0); Potassium 4.4 mmol/L (3.5-5.5)
[2022-09-09 11:09] LABS: Glucose,Whole Blood 147 mg/dL (70-110)
--- NOTE | 2022-09-09 12:00 | P.PN ---
Subjective Progress Note Date: 09/09/22 I am seeing the patient for the first time during this admission. The patient has GBM s/p surgery, chemotherapy and radiation and it seems patient has probable focal seizure. She stated she came to hospital since was having seizures at home. It seems the family wanted her transferred to [facility] for neurosurgical evaluation. Please refer to Dr. Pina's note for further details. Objective - Vital Signs Vital signs: Vital Signs Temp 97.6 F 09/09/22 04:09 Pulse 122 H 09/09/22 04:09 Resp 16 09/09/22 04:09 BP 120/75 09/09/22 04:09 Pulse Ox 96 09/09/22 04:09 FiO2 Intake & Output 09/08/22 09/09/22 09/09/22 18:59 06:59 18:59 Weight 86.183 kg Other: Voiding Method Bedpan Bedside Commode # Voids 1 2 - Exam GENERAL: The patient is lying in bed and is not in acute distress. NEUROLOGICAL: Higher mental function: The patient is awake, alert, oriented to self, place and time. Patient is following commands. No aphasia and no neglect. Cranial nerves: The pupils are round, equal and reactive to light. Visual concepcion are full to confrontation throughout. Extraocular movement is has horizontal nystagmus looking to right and has restiction in looking to left (left > right eye) with some nystagmus and was told old. Facial sensation is decreased to touch over entire left side (old). The facial strength is normal throughout. Hearing is normal bilaterally to hand rub. Tongue is midline and moved yrsi-po-liac without any difficulty. No dysarthria is noted. Shoulder shrug is normal bilaterally. Motor: The strength is 5 over 5 throughout. Normal tone and bulk. Cerebellum: Unsteady finger to nose on the left upper. Sensation: Sensation is normal to touch throughout. Plantars are downgoing bilaterally. - Labs CBC & Chem 7: 09/09/22 04:55 09/09/22 04:55 Labs: Abnormal Lab Results - Last 24 Hours (Table) 09/09/22 09/09/22 09/09/22 Range/Units 04:55 04:55 11:07 WBC 15.66 H (4.50-10.00) X 10*3/uL MCHC 30.8 L (32.0-37.0) g/dL Immature Gran # 0.33 H (0.00-0.04) X 10*3/uL Neutrophils # 12.94 H (1.80-7.70) X 10*3/uL Monocytes # 1.06 H (0.20-1.00) X 10*3/uL Eosinophils # 0 L (0.04-0.35) X 10*3/uL BUN/Creatinine Ratio 25.29 H (12.00-20.00) Ratio POC Glucose (mg/dL) 147 H (70-110) mg/dL Assessment and Plan Assessment: * Probable focal seizures * Glioblastoma multiform, status post surgery, radiation and chemotherapy. Probable recent progression of the disease. 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 * Cephalalgia, possibly due to postictal state, possible due to progression of disease. Plan: * Pending routine EEG evaluate for epileptiform activity. Patient may need prolonged EEG study as well in future. * Keppra was increased by Dr. Pina from 500 mg twice a day up to 1000 mg twice a day. * Discontinue Wellbutrin, as it can lower seizure threshold. * Patient has recent MRI Brain 09/04/2022 and from neurological perspective does not need repeat one. * On Dexamethaose 4mg every 6 hours and will defer to Oncology team. * Oncology on board. * Fioricet as needed for headaches. If no improvement, patient will need opiates. * Patient and family are requesting transfer to [facility] due to progression of the disease, and neurosurgical evaluation. * Patient does not have a neurologist outpatient. Patient and her family were strongly recommended to follow up with neurologist as an outpatient as well to manage seizure disorder. The plan is discussed with patient, her ex- (who is at bedside) and primary team. Time with Patient: Less than 30
[2022-09-09 17:05] LABS: Glucose,Whole Blood 108 mg/dL (70-110)
[2022-09-09 20:09] LABS: Glucose,Whole Blood 120 mg/dL (70-110)
--- NOTE | 2022-09-09 21:06 | P.PN ---
Subjective This is a pleasant [age] soft female with past medical history glioblastoma multiforme status post resection and chemotherapy presents because of multiple seizure in the morning, there reported for seizure lasted for a few minutes associated with postictal phase. Patient already been evaluated by neurologist and her Keppra dose was increased 500th up to 1000 mg twice a day while Wellbutrin which is known to lower the seizure threshold has been recommended to discontinue. The family also has been requesting to be transferred to [facility], troponin Vitas been a stable Labs showed leukocytosis of 17.1, rest of CBC, BMP and liver enzymes and urinalysis are unremarkable Urine drug screen is positive for barbiturates and benzodiazepines CT of the brain: No acute process. Surgical changes to the left posterior cranial fossa EKG showed normal sinus rhythm at [address] T changes Patient is up in bed, fully awake and oriented, no headache or other symptoms, no more seizure-like activity, no other complaints, no chest pain or dyspnea, no vomiting or diarrhea or dysuria, no new weakness or numbness I discussed the case with the neurologist Dr. Jurado and oncologist Dr. Michael and both recommended to transfer to patient to tertiary care center, patient is agreeable I discussed the case with Dr. Alfaro from neurology service at [facility] and she declined and transferred. Then I spoke with from [facility] I try and she currently accepted the patient for transfer pending bed availability, staff for updated Objective - Vital Signs Vital signs: Vital Signs Temp 97.9 F 09/09/22 19:55 Pulse 90 09/09/22 19:55 Resp 16 09/09/22 19:55 BP 102/65 09/09/22 19:55 Pulse Ox 98 09/09/22 19:55 FiO2 Intake & Output 09/09/22 09/09/22 09/10/22 06:59 18:59 06:59 Other: Voiding Method Bedside Commode Bedside Commode # Voids 2 1 - Exam GENERAL: The patient is alert and oriented x3, not in any acute distress. Well developed, well nourished. HEENT: Pupils are round and equally reacting to light. EOMI. No scleral icterus. No conjunctival pallor. Normocephalic, atraumatic. No pharyngeal erythema. No thyromegaly. CARDIOVASCULAR: S1 and S2 present. No murmurs, rubs, or gallops. PULMONARY: Chest is clear to auscultation, no wheezing or crackles. ABDOMEN: Soft, nontender, nondistended, normoactive bowel sounds. No palpable organomegaly. MUSCULOSKELETAL: No joint swelling or deformity. EXTREMITIES: No cyanosis, clubbing, or pedal edema. NEUROLOGICAL: Gross neurological examination did not reveal any focal deficits. SKIN: No rashes. no petechiae. - Labs CBC & Chem 7: 09/09/22 04:55 09/09/22 04:55 Labs: Abnormal Lab Results - Last 24 Hours (Table) 09/09/22 09/09/22 09/09/22 Range/Units 04:55 04:55 11:07 WBC 15.66 H (4.50-10.00) X 10*3/uL MCHC 30.8 L (32.0-37.0) g/dL Immature Gran # 0.33 H (0.00-0.04) X 10*3/uL Neutrophils # 12.94 H (1.80-7.70) X 10*3/uL Monocytes # 1.06 H (0.20-1.00) X 10*3/uL Eosinophils # 0 L (0.04-0.35) X 10*3/uL BUN/Creatinine Ratio 25.29 H (12.00-20.00) Ratio POC Glucose (mg/dL) 147 H (70-110) mg/dL 09/09/22 Range/Units 20:06 WBC (4.50-10.00) X 10*3/uL MCHC (32.0-37.0) g/dL Immature Gran # (0.00-0.04) X 10*3/uL Neutrophils # (1.80-7.70) X 10*3/uL Monocytes # (0.20-1.00) X 10*3/uL Eosinophils # (0.04-0.35) X 10*3/uL BUN/Creatinine Ratio (12.00-20.00) Ratio POC Glucose (mg/dL) 120 H (70-110) mg/dL Assessment and Plan Assessment: Breakthrough seizure History of glioblastoma multiforme status post resection and chemotherapy Syncope secondary to above Migraine headaches Plan: Patient accepted to [facility] pending bed availability Continue with Keppra 1000 mg Continue with seizure precaution Neurology consult Fioricet when necessary Labs and medication were reviewed.. Continue same treatment. Continue with s ymptomatic treatment. Resume home medication. Monitor lytes and vitals. DVT and GI prophylaxis. Further recommendations as per clinical course of the patient DVT prophylaxis: no Subcutaneous heparin as it is relatively contraindicated given her brain lesion GI Prophylaxis: Pepcid Prognosis is guarded
--- NOTE | 2022-09-09 21:18 | EEG ---
ELECTROENCEPHALOGRAM REPORT CLINICAL HISTORY: This is a 27-year-old young woman with history of glioblastoma multiforme, status post resection, who is likely having ongoing seizures. The video EEG is obtained to evaluate for seizure epileptiform activity. RELEVANT MEDICATION: Keppra. EEG TYPE: A routine 21-channel EEG is performed with video using the 10/20 electrode placement system. DESCRIPTION: Wakefulness is obtained. During awake state, the posterior-dominant rhythm consists of [id number]-tx-txrupill voltage of 9 to 9.5 hertz activity that is well modulated, well sustained. There is no physiological stage 2 sleep architecture seen. There is no focal slowing. Interictal and ictal is none. ACTIVATION PROCEDURE: Photic stimulation did not evoke a posterior driving response. There was no abnormality during the photic stimulation. Hyperventilation is not performed. CLINICAL INTERPRETATION: This is a normal routine EEG. There is no focal slowing, epileptiform discharge or seizure on the EEG. Normal routine EEG does not exclude underlying epilepsy. Clinical correlation is recommended. MMGREGG / IJN: [id number] /
--- NOTE | 2022-09-09 21:57 | P.CONS ---
History of Present Illness - Reason for Consult Consult date: 09/09/22 GBM, recurrent disease Requesting physician: Hipolito Guerra - Chief Complaint siezure - History of Present Illness Charito is a very pleasant female pt of Dr. Anastacio Michael who presented with headache, dizziness, imbalance & nausea. She was found to have L cerebellar mass on CT and MRI. CT CAP was unremarkable. She had craniotomy by Dr. Ashby on 03/10/2019 at [facility]. Had gross resection of diffuse midline Glioma, low Ki-67, negative ATRX and IDH1 immunostains. She was seen by Ronnie Acosta & Jamey and started on XRT/Temodar, which she tolerated well, and cont on maintenance 5 days every 28 days. She had Gamma knife to small cerebellar lesion in February 2021. MRI 04/25 revealed slight enlargement of lesion (7 mm) which is not unexpected but, MRI 07/16/21 revealed increased size to 10X9 mm. She did steroid taper, started avastin and did ok, 05/27 MRI brain was stable. Pt reports in and out of hospital in the last 2-3 months-dehydration. 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 Most recent MRI of brain showed progressive disease with 2 new lesion, she was started on Dex. LP was neg. Last seen in [facility] 08/09, trying to get pt either on a study or compassionate use drug. Had Caris and Guard[employer] testing on her tumor. Caris testing [id number] detected, MSI stable, MMR proficient, TMB low. [employer]ant ctDNA testing revealed a KRAS G12D mutation-no approved therapies, possible clinical trials in [place] and [place]. Pt is currently admitted with reported at least 5 seizures before arrival of EMS, 3 in the ER. She started to decline around 09/03-did a lot around the house, wore herself out. SHe has not recovered, progressively has gotten worse. Since admit, a dose of morphine, DC welbutrin and doubling of keppra she has not had another seizure. She reports feeling pretty good today. She has chronic double vision, lt sided facial numbness, depth perception is worse on the left side, she had severe pronator drift yesterday. Pt and family report much improved symptoms today. Review of Systems 10 point ROS is neg except as stated in HPI Past Medical History Past Medical History: Cancer Additional Past Medical History / Comment(s): brain cancer-Glioblastoma History of Any Multi-Drug Resistant Organisms: None Reported Past Surgical History: No Surgical Hx Reported Additional Past Surgical History / Comment(s): craniotomy 2019 Past Psychological History: Depression Smoking Status: Never smoker Past Alcohol Use History: None Reported Past Drug Use History: None Reported Medications and Allergies Home Medications Medication Instructions Recorded Confirmed Type buPROPion HCL [Wellbutrin XL] 150 tab PO DAILY 12/31/21 09/08/22 History Escitalopram [Lexapro] 10 mg PO DAILY 07/30/22 09/08/22 History HYDROcodone/APAP 10-325MG [[place] 1 tab PO Q6HR 09/08/22 09/08/22 History 10-325] Ondansetron Odt [Zofran Odt] 4 mg PO Q6H PRN 09/08/22 09/08/22 History Temozolomide [Temodar] 180 mg PO DIRECTED 09/08/22 09/08/22 History levETIRAcetam [Keppra] 500 mg PO Q12HR 09/08/22 09/08/22 History Allergies Allergy/AdvReac Type Severity Reaction Status Date / Time No Known Allergies Allergy Verified 09/08/22 05:48 Physical Exam Vitals: Vital Signs Temp Pulse Resp BP Pulse Ox 09/09/22 11:10 97.6 F 90 18 130/85 96 09/09/22 04:09 97.6 F 122 H 16 120/75 96 09/08/22 19:55 98.3 F 86 16 109/65 97 Intake and Output 09/09/22 09/09/22 09/09/22 06:59 14:59 22:59 Other: # Voids 2 2 - Constitutional General appearance: average body habitus, cooperative, no acute distress - EENT Eyes: anicteric sclerae ENT: hearing grossly normal, normal oropharynx - Neck Neck: no lymphadenopathy - Respiratory Respiratory: bilateral: CTA - Cardiovascular Rhythm: regular Heart sounds: normal: S1, S2 Abnormal Heart Sounds: no systolic murmur, no diastolic murmur, no rub, no S3 Gallop, no S4 Gallop, no click, no other leg Peripheral Edema: bilateral: None - Gastrointestinal General gastrointestinal: no absent bowel sounds, no decreased bowel sounds, no distended, no hepatomegaly, no hyperactive bowel sounds, normal bowel sounds, no organomegaly, no rigid, no scaphoid, soft, no splenomegaly, no tenderness, no umbilical hernia, no ventral hernia - Neurologic Neurologic: focal deficits - Musculoskeletal Musculoskeletal: left sided weakness - Psychiatric Psychiatric: A&O x's 3, appropriate affect, intact judgment & insight Results CBC & Chem 7: 09/09/22 04:55 09/09/22 04:55 Labs: Abnormal Lab Results - Last 24 Hours (Table) 09/09/22 09/09/22 09/09/22 Range/Units 04:55 04:55 11:07 WBC 15.66 H (4.50-10.00) X 10*3/uL MCHC 30.8 L (32.0-37.0) g/dL Immature Gran # 0.33 H (0.00-0.04) X 10*3/uL Neutrophils # 12.94 H (1.80-7.70) X 10*3/uL Monocytes # 1.06 H (0.20-1.00) X 10*3/uL Eosinophils # 0 L (0.04-0.35) X 10*3/uL BUN/Creatinine Ratio 25.29 H (12.00-20.00) Ratio POC Glucose (mg/dL) 147 H (70-110) mg/dL CT Scan - head: report reviewed Assessment and Plan (1) New onset seizure Current Visit: Yes Status: Acute Priority: High Code(s): R56.9 - UNSPECIFIED CONVULSIONS SNOMED Code(s): 18452016 (2) GBM (glioblastoma multiforme) Current Visit: Yes Status: Chronic Priority: High Code(s): C71.9 - MALIGNANT NEOPLASM OF BRAIN, UNSPECIFIED SNOMED Code(s): 674005892 Plan: Dr. Rick Michael and Dr. Richard discussed case. Due to progressive symptoms and pt not currently on any therapy other then temodar, recommendation is for transfer to [facility] for evaluation with Dr. Ashby. There have been discussions of possible treatment options including ommya port placement for IT chemo administration, targeted therapy for somatic mutations. Currently, there are no FDA approved targeted drugs available. Meds would need to be obtained based on compassionate use or through clinical trials. Will investigate that further. Pt symptoms are worsening so, she is going to need treatment as soon as possible. All of pt and family questions answered to their satisfaction and they under stand the recommendations. Attests: I have seen and examined pt, performed H&P, developed impression and plan of care. Discussed with dictator. Agree with documentation, dictated as a scribe. Time with Patient: Greater than 30
[2022-09-10] MEDS: DEXAMETHASONE SOD PHOSPHATE 4 MG/ML 1 ML VIAL IVP SCH ×5 (00:34→23:43)
[2022-09-10] MEDS: ONDANSETRON ODT 4 MG TAB PO PRN ×2 (00:34→23:48)
[2022-09-10] MEDS: SODIUM CHLORIDE 0.9% 1,000 ML IV SCH ×2 (00:37→15:14)
[2022-09-10] MEDS: TEMOZOLOMIDE PO SCH ×2 (00:40→23:44)
[2022-09-10 03:40] VITALS: RESP 18
[2022-09-10 07:09] LABS: Glucose,Whole Blood 89 mg/dL (70-110)
[2022-09-10 07:52] LABS: Basophils # (A) 0.3 k/uL (0-0.2); Basophils % (A) 1 %; Eosinophils # (A) 0.1 k/uL (0-0.7); Eosinophils % (A) 1 %; HCT 43.7 % (34.0-46.0); HGB 14.1 gm/dL (11.4-16.0); Lymphocytes # (A) 1.5 k/uL (1.0-4.8); Lymphocytes % (A) 7 %; MCHC 32.4 g/dL (31.0-37.0); MCV 89.4 fL (80.0-100.0); Mean Platelet Volume 7.7; Monocytes % (A) 4 %; Neutrophils # (A) 19.4 k/uL (1.3-7.7); Neutrophils % (A) 86 %; Platelet Count 340 k/uL (150-450); RBC 4.89 m/uL (3.80-5.40); RDW 13.7 % (11.5-15.5); WBC 22.7 k/uL (3.8-10.6)
[2022-09-10] MEDS: INSULIN ASPART (NovoLOG) 100 UNIT/ML VIAL SQ SCH ×4 (08:14→20:55)
[2022-09-10] MEDS: levETIRAcetam 500 MG TAB PO SCH ×2 (08:15→20:57)
[2022-09-10] MEDS: ESCITALOPRAM 10 MG TAB PO SCH (08:15)
--- NOTE | 2022-09-10 12:56 | P.HPIM ---
History of Present Illness This is a pleasant [age] soft female with past medical history glioblastoma multiforme status post resection and chemotherapy presents because of multiple seizure in the morning, there reported for seizure lasted for a few minutes as sociated with postictal phase. Patient already been evaluated by neurologist and her Keppra dose was increased 500th up to 1000 mg twice a day while Wellbutrin which is known to lower the seizure threshold has been recommended to discontinue. The family also has been requesting to be transferred to [facility], at [place]. I discussed the case with urology and oncology service today and both of them recommended to transfer the patient to tertiary care center. Patient eventually got accepted by [facility] pending bed availability. Accepting physician is Dr. pati Adams been a stable Labs showed leukocytosis of 17.1, rest of CBC, BMP and liver enzymes and urinalysis are unremarkable Urine drug screen is positive for barbiturates and benzodiazepines CT of the brain: No acute process. Surgical changes to the left posterior cranial fossa EKG showed normal sinus rhythm at [address] T changes Review of Systems Review of systems CONSTITUTIONAL: No fever, no malaise, no fatigue. HEENT: No recent visual problems or hearing problems. Denied any sore throat. CARDIOVASCULAR: No orthopnea, PND, no palpitations, no syncope. PULMONARY: No shortness of breath, no cough, no hemoptysis. GASTROINTESTINAL: No diarrhea, no nausea, no vomiting, no abdominal pain. Normoactive bowel sounds. NEUROLOGICAL: No headaches, no weakness, no numbness. HEMATOLOGICAL: Denies any bleeding or petechiae. GENITOURINARY: Denies any burning micturition, frequency, or urgency. MUSCULOSKELETAL/RHEUMATOLOGICAL: Denies any joint pain, swelling, or any muscle pain. ENDOCRINE: Denies any polyuria or polydipsia. Past Medical History Past Medical History: Cancer Additional Past Medical History / Comment(s): brain cancer-Glioblastoma History of Any Multi-Drug Resistant Organisms: None Reported Past Surgical History: No Surgical Hx Reported Additional Past Surgical History / Comment(s): craniotomy 2019 Past Psychological History: Depression Smoking Status: Never smoker Past Alcohol Use History: None Reported Past Drug Use History: None Reported Medications and Allergies Home Medications Medication Instructions Recorded Confirmed Type buPROPion HCL [Wellbutrin XL] 150 tab PO DAILY 12/31/21 09/08/22 History Escitalopram [Lexapro] 10 mg PO DAILY 07/30/22 09/08/22 History HYDROcodone/APAP 10-325MG [[place] 1 tab PO Q6HR 09/08/22 09/08/22 History 10-325] Ondansetron Odt [Zofran Odt] 4 mg PO Q6H PRN 09/08/22 09/08/22 History Temozolomide [Temodar] 180 mg PO DIRECTED 09/08/22 09/08/22 History levETIRAcetam [Keppra] 500 mg PO Q12HR 09/08/22 09/08/22 History Allergies Allergy/AdvReac Type Severity Reaction Status Date / Time No Known Allergies Allergy Verified 09/08/22 05:48 Physical Exam Vitals: Vital Signs Temp Pulse Pulse Pulse Resp BP BP 09/08/22 19:55 98.3 F 86 16 109/65 09/08/22 13:56 92 18 126/97 09/08/22 13:27 98.2 F 67 17 120/73 09/08/22 10:37 82 18 138/100 09/08/22 09:00 97 18 139/97 09/08/22 08:00 78 18 135/89 09/08/22 07:53 78 18 131/89 09/08/22 05:49 98.7 F 72 15 133/77 Pulse Ox 09/08/22 19:55 97 09/08/22 13:56 98 09/08/22 13:27 97 09/08/22 10:37 09/08/22 09:00 99 09/08/22 08:00 99 09/08/22 07:53 98 09/08/22 05:49 100 Intake and Output 09/08/22 09/08/22 09/08/22 06:59 14:59 22:59 Other: Voiding Method Bedpan # Voids 1 Weight 86.183 kg 86.183 kg GENERAL: The patient is alert and oriented x3, not in any acute distress. Well developed, well nourished. HEENT: Pupils are round and equally reacting to light. EOMI. No scleral icterus. No conjunctival pallor. Normocephalic, atraumatic. No pharyngeal erythema. No thyromegaly. CARDIOVASCULAR: S1 and S2 present. No murmurs, rubs, or gallops. PULMONARY: Chest is clear to auscultation, no wheezing or crackles. ABDOMEN: Soft, nontender, nondistended, normoactive bowel sounds. No palpable organomegaly. MUSCULOSKELETAL: No joint swelling or deformity. EXTREMITIES: No cyanosis, clubbing, or pedal edema. NEUROLOGICAL: Gross neurological examination did not reveal any focal deficits. SKIN: No rashes. no petechiae. Results CBC & Chem 7: 09/10/22 07:36 09/09/22 04:55 Labs: Abnormal Lab Results - Last 24 Hours (Table) 09/08/22 09/08/22 09/08/22 Range/Units 06:47 06:47 09:25 WBC 17.1 H (3.8-10.6) k/uL Neutrophils # 15.1 H (1.3-7.7) k/uL Sodium 134 L (137-145) mmol/L Glucose 127 H (74-99) mg/dL Ur Barbiturates Screen Detected H (NotDetected) U Benzodiazepines Scrn Detected H (NotDetected) Thrombosis Risk Factor Assmnt - Choose All That Apply Each Factor Represents 1 point: Oral contraceptives or hormone replacement therapy Other Risk Factors: Yes Each Risk Factor Represents 2 Points: Malignancy Other congenital or acquired thrombophilia - If yes, enter type in comment: No Thrombosis Risk Factor Assessment Total Risk Factor Score: 3 Thrombosis Risk Factor Assessment Level: Moderate Risk Assessment and Plan Assessment: Breakthrough seizure History of glioblastoma multiforme status post resection and chemotherapy Syncope secondary to above Migraine headaches Obesity Plan: Patient accepted to [facility] pending bed availability Continue with Keppra 1000 mg Continue with seizure precaution Neurology consult Fioricet when necessary Labs and medication were reviewed.. Continue same treatment. Continue with symptomatic treatment. Resume home medication. Monitor lytes and vitals. DVT and GI prophylaxis. Further recommendations as per clinical course of the patient DVT prophylaxis: no Subcutaneous heparin as it is relatively contraindicated given her brain lesion GI Prophylaxis: Pepcid Prognosis is guarded
--- NOTE | 2022-09-10 12:58 | P.PN ---
Subjective This is a pleasant [age] soft female with past medical history glioblastoma multiforme status post resection and chemotherapy presents because of multiple seizure in the morning, there reported for seizure lasted for a few minutes associated with postictal phase. Patient already been evaluated by neurologist and her Keppra dose was increased 500th up to 1000 mg twice a day while Wellbutrin which is known to lower the seizure threshold has been recommended to discontinue. The family also has been requesting to be transferred to [facility], troponin Vitas been a stable Labs showed leukocytosis of 17.1, rest of CBC, BMP and liver enzymes and urinalysis are unremarkable Urine drug screen is positive for barbiturates and benzodiazepines CT of the brain: No acute process. Surgical changes to the left posterior cranial fossa EKG showed normal sinus rhythm at [address] T changes Patient is up in bed, fully awake and oriented, no headache or other symptoms, no more seizure-like activity, no other complaints, no chest pain or dyspnea, no vomiting or diarrhea or dysuria, no new weakness or numbness I discussed the case with the neurologist Dr. Jurado and oncologist Dr. Michael and both recommended to transfer to patient to tertiary care center, patient is agreeable I discussed the case with Dr. Alfaro from neurology service at [facility] and she declined and transferred. Then I spoke with from [facility] I try and she currently accepted the patient for transfer pending bed availability, staff for updated 09/10/2022 Patient is asymptomatic, no more seizure. Walking in the room with no problems. Vitals stable. She has mild leukocytosis but she is on dexamethasone Patient pending. Inability at [facility] Objective - Vital Signs Vital signs: Vital Signs Temp 98.1 F 09/10/22 06:54 Pulse 98 09/10/22 06:54 Resp 18 09/10/22 06:54 BP 130/81 09/10/22 06:54 Pulse Ox 98 09/10/22 06:54 FiO2 Intake & Output 09/09/22 09/10/22 09/10/22 18:59 06:59 18:59 Intake Total 1000 Balance 1000 Intake: Oral 1000 Other: Voiding Method Bedside Commode Bedside Commode Bedside Commode # Voids 1 2 1 - Exam GENERAL: The patient is alert and oriented x3, not in any acute distress. Well developed, well nourished. HEENT: Pupils are round and equally reacting to light. EOMI. No scleral icterus. No conjunctival pallor. Normocephalic, atraumatic. No pharyngeal erythema. No thyromegaly. CARDIOVASCULAR: S1 and S2 present. No murmurs, rubs, or gallops. PULMONARY: Chest is clear to auscultation, no wheezing or crackles. ABDOMEN: Soft, nontender, nondistended, normoactive bowel sounds. No palpable organomegaly. MUSCULOSKELETAL: No joint swelling or deformity. EXTREMITIES: No cyanosis, clubbing, or pedal edema. NEUROLOGICAL: Gross neurological examination did not reveal any focal deficits. SKIN: No rashes. no petechiae. - Labs CBC & Chem 7: 09/10/22 07:36 09/09/22 04:55 Labs: Abnormal Lab Results - Last 24 Hours (Table) 09/09/22 09/10/22 Range/Units 20:06 07:36 WBC 22.7 H (3.8-10.6) k/uL Neutrophils # 19.4 H (1.3-7.7) k/uL Basophils # 0.3 H (0-0.2) k/uL POC Glucose (mg/dL) 120 H (70-110) mg/dL Assessment and Plan Assessment: Breakthrough seizure History of glioblastoma multiforme status post resection and chemotherapy Syncope secondary to above Migraine headaches Obesity Plan: Patient accepted to [facility] pending bed availability Continue with Keppra 1000 mg Continue with seizure precaution Neurology consult Fioricet when necessary Labs and medication were reviewed.. Continue same treatment. Continue with symptomatic treatment. Resume home medication. Monitor lytes and vitals. DVT and GI prophylaxis. Further recommendations as per clinical course of the patient DVT prophylaxis: no Subcutaneous heparin as it is relatively contraindicated given her brain lesion GI Prophylaxis: Pepcid Prognosis is guarded
[2022-09-10 13:07] LABS: Glucose,Whole Blood 115 mg/dL (70-110)
--- NOTE | 2022-09-10 13:37 | P.PN ---
Subjective Progress Note Date: 09/10/22 The patient is seen at bedside and no further seizures. The patient feels she is doing well. Objective - Vital Signs Vital signs: Vital Signs Temp 98.7 F 09/10/22 13:05 Pulse 86 09/10/22 13:05 Resp 18 09/10/22 13:05 BP 120/84 09/10/22 13:05 Pulse Ox 96 09/10/22 13:05 FiO2 Intake & Output 09/09/22 09/10/22 09/10/22 18:59 06:59 18:59 Intake Total 1000 Balance 1000 Intake: Oral 1000 Other: Voiding Method Bedside Commode Bedside Commode Bedside Commode # Voids 1 2 1 - Exam GENERAL: The patient is lying in bed and is not in acute distress. NEUROLOGICAL: Higher mental function: The patient is awake, alert, oriented to self, place and time. Patient is following commands. No aphasia and no neglect. Cranial nerves: The pupils are round, equal and reactive to light. Visual concepcion are full to confrontation throughout. Extraocular movement is has horizontal nystagmus looking to right and has restiction in looking to left (left > right eye) with some nystagmus and was told old. Facial sensation is decreased to touch over entire left side (old). The facial strength is normal throughout. Hearing is normal bilaterally to hand rub. Tongue is midline and moved [id number] without any difficulty. No dysarthria is noted. Shoulder shrug is normal bilaterally. Motor: The strength is 5 over 5 throughout. Normal tone and bulk. Cerebellum: Unsteady finger to nose on the left upper. Sensation: Sensation is normal to touch throughout. Plantars are downgoing bilaterally. - Labs CBC & Chem 7: 09/10/22 07:36 09/09/22 04:55 Labs: Abnormal Lab Results - Last 24 Hours (Table) 09/09/22 09/10/22 09/10/22 Range/Units 20:06 07:36 13:05 WBC 22.7 H (3.8-10.6) k/uL Neutrophils # 19.4 H (1.3-7.7) k/uL Basophils # 0.3 H (0-0.2) k/uL POC Glucose (mg/dL) 120 H 115 H (70-110) mg/dL Assessment and Plan Assessment: * Probable focal seizures * Glioblastoma multiform, status post surgery, radiation and chemotherapy. Probable recent progression of the disease. 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 * Cephalalgia, possibly due to postictal state, possible due to progression of disease. Plan: * Routine EEG evaluate for epileptiform activity: As normal. There is no focal slowing, epileptiform discharges or seizure on the EEG. Ordered 2.5 hour EEG. * Keppra was increased by Dr. Pina from 500 mg twice a day up to 1000 mg twice a day. * Discontinue Wellbutrin, as it can lower seizure threshold. * Patient has recent MRI Brain 09/04/2022 and from neurological perspective does not need repeat one. * On Dexamethaose 4mg every 6 hours and will defer to Oncology team. * Oncology on board. * Fioricet as needed for headaches. If no improvement, patient will need opiates. * Patient and family are requesting transfer to [facility] due to progression of the disease, and neurosurgical evaluation. She was accepted to [facility]. * Patient does not have a neurologist outpatient. Patient and her family were strongly recommended to follow up with neurologist as an outpatient as well to manage seizure disorder. The plan is discussed with patient and primary team. Time with Patient: Less than 30
[2022-09-10 17:09] LABS: Glucose,Whole Blood 111 mg/dL (70-110)
[2022-09-10 20:37] LABS: Glucose,Whole Blood 103 mg/dL (70-110)
[2022-09-11] MEDS: DEXAMETHASONE SOD PHOSPHATE 4 MG/ML 1 ML VIAL IVP SCH ×3 (05:42→17:52)
[2022-09-11] MEDS: SODIUM CHLORIDE 0.9% 1,000 ML IV SCH ×2 (05:42→17:53)
[2022-09-11 07:05] LABS: Glucose,Whole Blood 100 mg/dL (70-110)
[2022-09-11] MEDS: levETIRAcetam 500 MG TAB PO SCH ×2 (08:41→21:30)
[2022-09-11] MEDS: INSULIN ASPART (NovoLOG) 100 UNIT/ML VIAL SQ SCH ×4 (08:41→20:16)
[2022-09-11] MEDS: ESCITALOPRAM 10 MG TAB PO SCH (08:41)
[2022-09-11 11:09] LABS: Glucose,Whole Blood 116 mg/dL (70-110)
--- NOTE | 2022-09-11 12:34 | P.PN ---
Subjective Progress Note Date: 09/11/22 The patient is seen at bedside and feels is doing well. No further seizures. Objective - Vital Signs Vital signs: Vital Signs Temp 97.8 F 09/11/22 11:09 Pulse 94 09/11/22 11:09 Resp 18 09/11/22 11:09 BP 122/83 09/11/22 11:09 Pulse Ox 95 09/11/22 11:09 FiO2 Intake & Output 09/10/22 09/11/22 09/11/22 18:59 06:59 18:59 Intake Total 900 Balance 900 Intake: Oral 900 Other: Voiding Method Bedside Commode Bedside Commode # Voids 1 3 - Exam GENERAL: The patient is lying in bed and is not in acute distress. NEUROLOGICAL: Higher mental function: The patient is awake, alert, oriented to self, place and time. Patient is following commands. No aphasia and no neglect. Cranial nerves: The pupils are round, equal and reactive to light. Visual concepcion are full to confrontation throughout. Extraocular movement is has horizontal nystagmus looking to right and has restiction in looking to left (left > right eye) with some nystagmus and was told old. Facial sensation is decreased to touch over entire left side (old). The facial strength is normal throughout. Hearing is normal bilaterally to hand rub. Tongue is midline and moved [id number] without any difficulty. No dysarthria is noted. Shoulder shrug is normal bilaterally. Motor: The strength is 5 over 5 throughout. Normal tone and bulk. Cerebellum: Unsteady finger to nose on the left upper. Sensation: Sensation is normal to touch throughout. Plantars are downgoing bilaterally. - Labs CBC & Chem 7: 09/10/22 07:36 09/09/22 04:55 Labs: Abnormal Lab Results - Last 24 Hours (Table) 09/10/22 09/10/22 09/11/22 Range/Units 13:05 17:08 11:07 POC Glucose (mg/dL) 115 H 111 H 116 H (70-110) mg/dL Assessment and Plan Assessment: * Probable focal seizures * Glioblastoma multiform, status post surgery, radiation and chemotherapy. Probable recent progression of the disease. 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 * Cephalalgia, possibly due to postictal state, possible due to progression of disease. Plan: * Routine EEG evaluate for epileptiform activity: As normal. There is no focal slowing, epileptiform discharges or seizure on the EEG. Pending final report of 2.5 hour EEG (completed on 09/10/2022): Was notified no seizure but has bro ad sharp over the left hemisphere. * Keppra was increased by Dr. Pina from 500 mg twice a day up to 1000 mg twice a day. * Discontinue Wellbutrin, as it can lower seizure threshold. * Patient has recent MRI Brain 09/04/2022 and from neurological perspective does not need repeat one. * On Dexamethaose 4mg every 6 hours and will defer to Oncology team. * Oncology on board. * Fioricet as needed for headaches. If no improvement, patient will need opiates. * Patient and family are requesting transfer to [facility] due to progression of the disease, and neurosurgical evaluation. She was accepted to [facility]. * Patient does not have a neurologist outpatient. Patient and her family were strongly recommended to follow up with neurologist as an outpatient as well to manage seizure disorder. The plan is discussed with patient and primary team. Otherwise no additional work-up is needed. Time with Patient: Less than 30
[2022-09-11 17:11] LABS: Glucose,Whole Blood 171 mg/dL (70-110)
[2022-09-11 20:11] LABS: Glucose,Whole Blood 125 mg/dL (70-110)
--- NOTE | 2022-09-11 20:55 | P.PN ---
Subjective This is a pleasant [age] soft female with past medical history glioblastoma multiforme status post resection and chemotherapy presents because of multiple seizure in the morning, there reported for seizure lasted for a few minutes associated with postictal phase. Patient already been evaluated by neurologist and her Keppra dose was increased 500th up to 1000 mg twice a day while Wellbutrin which is known to lower the seizure threshold has been recommended to discontinue. The family also has been requesting to be transferred to [facility], troponin Vitas been a stable Labs showed leukocytosis of 17.1, rest of CBC, BMP and liver enzymes and urinalysis are unremarkable Urine drug screen is positive for barbiturates and benzodiazepines CT of the brain: No acute process. Surgical changes to the left posterior cranial fossa EKG showed normal sinus rhythm at [address] T changes Patient is up in bed, fully awake and oriented, no headache or other symptoms, no more seizure-like activity, no other complaints, no chest pain or dyspnea, no vomiting or diarrhea or dysuria, no new weakness or numbness I discussed the case with the neurologist Dr. Jurado and oncologist Dr. Michael and both recommended to transfer to patient to tertiary care center, patient is agreeable I discussed the case with Dr. Alfaro from neurology service at [facility] and she declined and transferred. Then I spoke with from [facility] I try and she currently accepted the patient for transfer pending bed availability, staff for updated 09/10/2022 Patient is asymptomatic, no more seizure. Walking in the room with no problems. Vitals stable. She has mild leukocytosis but she is on dexamethasone Patient pending. Inability at [facility] 09/11/2022 Patient still asymptomatic, fully awake oriented, no headache this morning, she has chronic blurred vision in her left eye for 6 months with no recent worsening. Vitals are stable. She still remains on dexamethasone IV and Keppra 1000 mg Patient still wants to go to [facility] to see her neurosurgeon. Patient accepted pending bed availability Objective - Vital Signs Vital signs: Vital Signs Temp 97.8 F 09/11/22 11:09 Pulse 94 09/11/22 11:09 Resp 18 09/11/22 11:09 BP 122/83 09/11/22 11:09 Pulse Ox 95 09/11/22 11:09 FiO2 Intake & Output 09/10/22 09/11/22 09/11/22 18:59 06:59 18:59 Intake Total 900 Balance 900 Intake: Oral 900 Other: Voiding Method Bedside Commode Bedside Commode # Voids 1 3 - Exam GENERAL: The patient is alert and oriented x3, not in any acute distress. Well developed, well nourished. HEENT: Pupils are round and equally reacting to light. EOMI. No scleral icterus. No conjunctival pallor. Normocephalic, atraumatic. No pharyngeal erythema. No thyromegaly. CARDIOVASCULAR: S1 and S2 present. No murmurs, rubs, or gallops. PULMONARY: Chest is clear to auscultation, no wheezing or crackles. ABDOMEN: Soft, nontender, nondistended, normoactive bowel sounds. No palpable organomegaly. MUSCULOSKELETAL: No joint swelling or deformity. EXTREMITIES: No cyanosis, clubbing, or pedal edema. NEUROLOGICAL: Gross neurological examination did not reveal any focal deficits. SKIN: No rashes. no petechiae. - Labs CBC & Chem 7: 09/10/22 07:36 09/09/22 04:55 Labs: Abnormal Lab Results - Last 24 Hours (Table) 09/10/22 09/10/22 09/11/22 Range/Units 13:05 17:08 11:07 POC Glucose (mg/dL) 115 H 111 H 116 H (70-110) mg/dL Assessment and Plan Assessment: Breakthrough seizure History of glioblastoma multiforme status post resection and chemotherapy Syncope secondary to above Migraine headaches Obesity Plan: Patient accepted to [facility] pending bed availability Continue with Keppra 1000 mg Continue with seizure precaution Neurology consult Fioricet when necessary Labs and medication were reviewed.. Continue same treatment. Continue with symptomatic treatment. Resume home medication. Monitor lytes and vitals. DVT and GI prophylaxis. Further recommendations as per clinical course of the patient DVT prophylaxis: no Subcutaneous heparin as it is relatively contraindicated given her brain lesion GI Prophylaxis: Pepcid Prognosis is guarded
--- NOTE | 2022-09-11 21:52 | P.PN ---
Subjective Progress Note Date: 09/11/22 Principal diagnosis: Recurrent glioblastoma multiforme -EEG negative for epileptiform activity -No acute events overnight -Charito denies any seizures or neurological deficits over the past 24 hours -Transfer to [facility] for additional neurosurgical evaluation has been initiated and is currently awaiting bed placement at [facility] Objective - Vital Signs Vital signs: Vital Signs Temp 97.8 F 09/11/22 20:45 Pulse 81 09/11/22 20:45 Resp 18 09/11/22 20:45 BP 113/73 09/11/22 20:45 Pulse Ox 96 09/11/22 20:45 FiO2 Intake & Output 09/11/22 09/11/22 09/12/22 06:59 18:59 06:59 Intake Total 900 Balance 900 Intake: Oral 900 Other: Voiding Method Bedside Commode # Voids 3 1 - Constitutional General appearance: Present: average body habitus, no acute distress - EENT Eyes: Present: EOMI - Respiratory Respiratory: bilateral: CTA - Cardiovascular Rhythm: regular - Gastrointestinal General gastrointestinal: Present: normal bowel sounds, soft. Absent: tenderness - Integumentary Integumentary: Absent: rash - Neurologic Neurologic: Present: CNII-XII intact - Psychiatric Psychiatric: Present: A&O x's 3 - Labs CBC & Chem 7: 09/10/22 07:36 09/09/22 04:55 Labs: Abnormal Lab Results - Last 24 Hours (Table) 09/11/22 09/11/22 09/11/22 Range/Units 11:07 17:10 20:09 POC Glucose (mg/dL) 116 H 171 H 125 H (70-110) mg/dL Assessment and Plan Assessment: Ms. Zaragoza is a 27-year-old female with a past medical history significant for glioblastoma multiforme diagnosed in March 2019 status post resection followed by adjuvant temozolomide/RT and continued adjuvant temozolomide who has had recurrent hospitalizations over the past month for seizures found to have 2 new cerebellar lesions concerning for disease progression Plan: -Her case was discussed with her primary oncologist Dr. 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 While there is an oral medication targeting this receptor and other tumor types such as bladder, there is no evidence for its use and GBM -Guardant 360 noted KRAS G12D at a level of 0.06% circulating free DNA -Based on this mutation, there are 2 phase 1/2 clinical trials that could be av ailable to her with 1 involving the use of a ASTX 029 (NCT 17411063) and the other involving the use of JAB-3312 (NCT [id number]) -We will reach out to trial coordinators at [place] for the first trial and at [place] for the second trial to see if she qualifies -In the meantime, we do agree with additional neurosurgical evaluation with transfer to [facility]
[2022-09-12] MEDS: DEXAMETHASONE SOD PHOSPHATE 4 MG/ML 1 ML VIAL IVP SCH ×3 (00:28→13:51)
[2022-09-12 05:17] VITALS: TEMP 98.1
[2022-09-12] MEDS: SODIUM CHLORIDE 0.9% 1,000 ML IV SCH (06:28)
[2022-09-12 07:38] LABS: Glucose,Whole Blood 115 mg/dL (70-110)
[2022-09-12] MEDS: INSULIN ASPART (NovoLOG) 100 UNIT/ML VIAL SQ SCH ×2 (08:21→13:53)
[2022-09-12] MEDS: ESCITALOPRAM 10 MG TAB PO SCH (09:28)
[2022-09-12] MEDS: levETIRAcetam 500 MG TAB PO SCH (09:28)
[2022-09-12 12:06] VITALS: BP 125/85; PULSE 85
[2022-09-12 12:10] LABS: HGB 13.9 g/dL (12.0-15.0); MCH 28.1 pg (27.0-32.0); MCHC 30.9 g/dL (32.0-37.0); MCV 91.1 fL (80.0-97.0); Mean Platelet Volume 10.2 fL (9.5-12.2); NRBC Per 100 WBC 0.1 /100 WBCS (0.0-0.0); Platelet Count 324 X 10*3/uL (140-440); RBC 4.94 X 10*6/uL (4.10-5.20); RDW 14.5 % (11.5-14.5); WBC 21.85 X 10*3/uL (4.50-10.00)
[2022-09-12 12:11] LABS: Basophils # (M) 0 X 10*3/uL (0.00-0.10); Eosinophils # (M) 0 X 10*3/uL (0.04-0.35); Lymphocytes # (M) 1.31 X 10*3/uL (0.90-5.00); Metamyelocytes % 1 % (0-0); Monocytes # (M) 0.87 X 10*3/uL (0.20-1.00); Myelocytes % 3 % (0-0); Neutrophils # (M) 18.79 X 10*3/uL (2.00-8.90); Neutrophils % (M) 86 %; RBC Morphology NORMAL
[2022-09-12 12:27] LABS: Glucose,Whole Blood 146 mg/dL (70-110)
--- NOTE | 2022-09-12 15:03 | P.PN ---
Subjective Progress Note Date: 09/12/22 The patient is seen at bedside and no further seizure. Objective - Vital Signs Vital signs: Vital Signs Temp 98.1 F 09/12/22 11:53 Pulse 85 09/12/22 11:53 Resp 18 09/12/22 11:53 BP 125/85 09/12/22 11:53 Pulse Ox 95 09/12/22 11:53 FiO2 Intake & Output 09/11/22 09/12/22 09/12/22 18:59 06:59 18:59 Intake Total 400 Balance 400 Intake: Oral 400 Other: Voiding Method Bedside Commode Bedside Commode # Voids 1 4 - Exam GENERAL: The patient is lying in bed and is not in acute distress. NEUROLOGICAL: Higher mental function: The patient is awake, alert, oriented to self, place and time. Patient is following commands. No aphasia and no neglect. Cranial nerves: The pupils are round, equal and reactive to light. Visual concepcion are full to confrontation throughout. Extraocular movement is has horizontal nystagmus looking to right and has restiction in looking to left (left > right eye) with some nystagmus and was told old. Facial sensation is decreased to touch over entire left side (old). The facial strength is normal throughout. Hearing is normal bilaterally to hand rub. Tongue is midline and moved [id number] without any difficulty. No dysarthria is noted. Shoulder shrug is normal bilaterally. Motor: The strength is 5 over 5 throughout. Normal tone and bulk. Cerebellum: Unsteady finger to nose on the left upper. Sensation: Sensation is normal to touch throughout. Plantars are downgoing bilaterally. - Labs CBC & Chem 7: 09/12/22 07:09 09/09/22 04:55 Labs: Abnormal Lab Results - Last 24 Hours (Table) 09/11/22 09/11/22 09/12/22 Range/Units 17:10 20:09 07:09 WBC 21.85 H (4.50-10.00) X 10*3/uL MCHC 30.9 L (32.0-37.0) g/dL Absolute Nucleated RBC 0.02 H (0.00-0.00) X 10*3/uL Metamyelocytes % 1 H (0-0) % Myelocytes % 3 H (0-0) % Neutrophils # (Manual) 18.79 H (2.00-8.90) X 10*3/uL Eosinophils # (Manual) 0 L (0.04-0.35) X 10*3/uL NRBC/100 WBC Diff 0.1 H (0.0-0.0) /100 WBCS POC Glucose (mg/dL) 171 H 125 H (70-110) mg/dL 09/12/22 09/12/22 Range/Units 07:31 12:21 WBC (4.50-10.00) X 10*3/uL MCHC (32.0-37.0) g/dL Absolute Nucleated RBC (0.00-0.00) X 10*3/uL Metamyelocytes % (0-0) % Myelocytes % (0-0) % Neutrophils # (Manual) (2.00-8.90) X 10*3/uL Eosinophils # (Manual) (0.04-0.35) X 10*3/uL NRBC/100 WBC Diff (0.0-0.0) /100 WBCS POC Glucose (mg/dL) 115 H 146 H (70-110) mg/dL Assessment and Plan Assessment: * Probable focal seizures * Glioblastoma multiform, status post surgery, radiation and chemotherapy. Probable recent progression of the disease. 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 * Cephalalgia, possibly due to postictal state, possible due to progression of disease. Plan: * Routine EEG evaluate for epileptiform activity: As normal. There is no focal slowing, epileptiform discharges or seizure on the EEG. Pending final report of 2.5 hour EEG (completed on 09/10/2022): Was notified no seizure but has broad sharp over the left hemisphere. * Keppra was increased by Dr. Pina from 500 mg twice a day up to 1000 mg twice a day. * Discontinue Wellbutrin, as it can lower seizure threshold. * Patient has recent MRI Brain 09/04/2022 and from neurological perspective does not need repeat one. * On Dexamethaose 4mg every 6 hours and will defer to Oncology team. * Oncology on board. * Fioricet as needed for headaches. If no improvement, patient will need opiates. * Patient and family are requesting transfer to [facility] due to progression of the disease, and neurosurgical evaluation. [facility] and pending bed. From neurological perspective, I feel she can follow-up with neurosurgeon as outpatient if she continues not to have bed for transfer (since known hx of GBM and was evaluated by neurosurgery in past). I notified her and her ex- that she needs to make appointment with neurosurgeon as outpatient within 1-2 weeks. * Patient does not have a neurologist outpatient. Patient and her family were strongly recommended to follow up with neurologist as an outpatient as well to manage seizure disorder. The plan is discussed with patient and primary team. Otherwise no additional work-up is needed. Time with Patient: Less than 30
--- NOTE | 2022-09-13 00:18 | P.PN ---
Subjective Progress Note Date: 09/12/22 Principal diagnosis: seizure In f/u today pt is having difficulty seeing, denies anything progressive, no seizures since admit. Objective - Vital Signs Vital signs: Vital Signs Temp 98.1 F 09/12/22 11:53 Pulse 85 09/12/22 11:53 Resp 18 09/12/22 11:53 BP 125/85 09/12/22 11:53 Pulse Ox 95 09/12/22 11:53 FiO2 Intake & Output 09/11/22 09/12/22 09/12/22 18:59 06:59 18:59 Intake Total 400 Balance 400 Intake: Oral 400 Other: Voiding Method Bedside Commode Bedside Commode # Voids 1 4 - Constitutional General appearance: Present: average body habitus, cooperative, no acute distress - EENT Eyes: Present: anicteric sclerae, EOMI ENT: Present: hearing grossly normal - Integumentary Integumentary: Present: normal - Psychiatric Psychiatric: Present: A&O x's 3, appropriate affect, intact judgment & insight - Labs CBC & Chem 7: 09/12/22 07:09 09/09/22 04:55 Labs: Abnormal Lab Results - Last 24 Hours (Table) 09/11/22 09/11/22 09/12/22 Range/Units 17:10 20:09 07:09 WBC 21.85 H (4.50-10.00) X 10*3/uL MCHC 30.9 L (32.0-37.0) g/dL Absolute Nucleated RBC 0.02 H (0.00-0.00) X 10*3/uL Metamyelocytes % 1 H (0-0) % Myelocytes % 3 H (0-0) % Neutrophils # (Manual) 18.79 H (2.00-8.90) X 10*3/uL Eosinophils # (Manual) 0 L (0.04-0.35) X 10*3/uL NRBC/100 WBC Diff 0.1 H (0.0-0.0) /100 WBCS POC Glucose (mg/dL) 171 H 125 H (70-110) mg/dL 09/12/22 09/12/22 Range/Units 07:31 12:21 WBC (4.50-10.00) X 10*3/uL MCHC (32.0-37.0) g/dL Absolute Nucleated RBC (0.00-0.00) X 10*3/uL Metamyelocytes % (0-0) % Myelocytes % (0-0) % Neutrophils # (Manual) (2.00-8.90) X 10*3/uL Eosinophils # (Manual) (0.04-0.35) X 10*3/uL NRBC/100 WBC Diff (0.0-0.0) /100 WBCS POC Glucose (mg/dL) 115 H 146 H (70-110) mg/dL Assessment and Plan (1) New onset seizure Status: Acute Priority: High Code(s): R56.9 - UNSPECIFIED CONVULSIONS SNOMED Code(s): 48580857 (2) GBM (glioblastoma multiforme) Status: Chronic Priority: High Code(s): C71.9 - MALIGNANT NEOPLASM OF BRAIN, UNSPECIFIED SNOMED Code(s): 622344695 Plan: Unable to get pt transferred. Plan is for DC and f/u with Neurosurgeon. Pt has already contacted his office. Rx sent for new dose of keppra and a steroid taper Will be reviewing clinical trials in [place] and [place] to see if pt qualifies. F/U Dr. Gail Michael in a few weeks
== END 2022-09-12 16:38 | disposition home or self-care (01) | DRG 101 ==
LOC: EC 05:41 → 5NMEDONC 09:47
PROVIDERS: ADMIT Hospitalist; ATTEND Hospitalist
DX: G40.909 Epilepsy, unspecified, not intractable, without status epilepticus (principal); C71.6 Malignant neoplasm of cerebellum; E87.1 Hypo-osmolality and hyponatremia; G43.909 Migraine, unspecified, not intractable, without status migrainosus; G53 Cranial nerve disorders in diseases classified elsewhere; H53.2 Diplopia; R29.810 Facial weakness; H91.92 Unspecified hearing loss, left ear; F32.A Depression, unspecified; D72.829 Elevated white blood cell count, unspecified; E86.0 Dehydration; E66.9 Obesity, unspecified; Z68.34 Body mass index [BMI] 34.0-34.9, adult; Z79.899 Other long term (current) drug therapy; Z79.630 Long term (current) use of alkylating agent; Z79.3 Long term (current) use of hormonal contraceptives; Z92.21 Personal history of antineoplastic chemotherapy; Z92.3 Personal history of irradiation; W19.XXXA Unspecified fall, initial encounter
CPT/HCPCS: 36415; 70450; 80048; 80053; 80177; 80306; 81003; 81025; 83036; 83735; 85025; 93005; 95713; 95816; 96361; 96374; 96375; 99285

== ENCOUNTER 2022-10-01 13:31 | Emergency (ER) | payer MEDICARE ==
[2022-10-01 13:43] VITALS: TEMP 98.7
--- NOTE | 2022-10-01 13:48 | ED ---
General Adult HPI - General Chief complaint: Seizure Stated complaint: seizure Time Seen by Provider: 10/01/22 13:31 Source: patient, EMS, RN notes reviewed, old records reviewed Mode of arrival: EMS Limitations: no limitations - History of Present Illness Initial comments: This is a 27-year-old female who was diagnosed with glioblastoma in 2019 patient has had surgery as well as chemotherapy in the past. Patient comes in today because she has a history of seizures and today she felt as though she was going to have a seizure and had to sit down for about 20 minutes and then call over to the bed and she didn't know what to do so she took an extra 500 mg of Keppra and called EMS. Patient states currently she has no symptoms at the time she felt as though her left hand was a little weaker and had decreased sensation which she states has happened with previous seizures. Patient states currently she is back to her baseline she has been having increasing coordination problems with the left side of her body which she always has some but seems to be getting slowly worse lately. Patient states she has some MRIs scheduled in the future. Patient denies any recent fever chills or cough per patient denies any chest pain difficulty breathing first breath per patient denies any abdominal pain patient denies nausea vomiting diarrhea. Patient states she does think she is somewhat dehydrated. Patient states today she did not have a fever just the symptoms that she normally gets prior to having a fever. - Related Data Home Medications Medication Instructions Recorded Confirmed Escitalopram [Lexapro] 10 mg PO DAILY 07/30/22 09/08/22 HYDROcodone/APAP 10-325MG [[place] 1 tab PO Q6HR 09/08/22 09/08/22 10-325] Ondansetron Odt [Zofran ODT] 4 mg PO Q6H PRN 09/08/22 09/08/22 Temozolomide [Temodar] 180 mg PO DIRECTED 09/08/22 09/08/22 Previous Rx's Medication Instructions Recorded dexAMETHasone [Decadron] 4 mg PO QID #70 tablet 09/12/22 levETIRAcetam [Keppra] 1,000 mg PO Q12HR #60 tab 09/12/22 Allergies Allergy/AdvReac Type Severity Reaction Status Date / Time No Known Allergies Allergy Verified 10/01/22 13:44 Review of Systems ROS Statement: Those systems with pertinent positive or pertinent negative responses have been documented in the HPI. ROS Other: All systems not noted in ROS Statement are negative. Past Medical History Past Medical History: Cancer, Hypertension Additional Past Medical History / Comment(s): brain cancer-Glioblastoma, seizures r/t brain cancer History of Any Multi-Drug Resistant Organisms: None Reported Past Surgical History: No Surgical Hx Reported Additional Past Surgical History / Comment(s): craniotomy 2019 Past Psychological History: Depression Smoking Status: Never smoker Past Alcohol Use History: None Reported Past Drug Use History: None Reported General Exam - General Exam Comments Initial Comments: GENERAL: Patient is well-developed and well-nourished. Patient is nontoxic and well- hydrated and is in no acute distress. ENT: Neck is soft and supple. No significant lymphadenopathy is noted. Oropharynx is clear. Moist mucous membranes. Neck has full range of motion without eliciting any pain. EYES: The sclera were anicteric and conjunctiva were pink and moist. Extraocular movements were intact and pupils were equal round and reactive to light. Eyelids were unremarkable. PULMONARY: Unlabored respirations. Good breath sounds bilaterally. No audible rales rhonchi or wheezing was noted. CARDIOVASCULAR: There is a regular rate and rhythm without any murmurs gallops or rubs. ABDOMEN: Soft and nontender with normal bowel sounds. SKIN: Skin is clear with no lesions or rashes and otherwise unremarkable. NEUROLOGIC: Patient is alert and oriented x3. Cranial nerves II through XII are grossly intact. Motor and sensory are also intact. Patient has slightly slurred speech patient states this is her baseline. Symmetrical smile. Finger to nose testing on the left is considerably off compared to the right patient states this is her baseline. MUSCULOSKELETAL: Normal extremities with adequate strength and full range of motion. LYMPHATICS: No significant lymphadenopathy is noted PSYCHIATRIC: Normal psychiatric evaluation. Limitations: no limitations Course Vital Signs 10/01/22 10/01/22 10/01/22 13:38 13:55 14:00 Temperature 98.7 F Pulse Rate 79 81 Pulse Rate [ 84 Sitting] Pulse Rate [ 96 Standing] Pulse Rate [ 79 Supine] Respiratory 16 20 Rate Blood Pressure 134/94 142/102 Blood Pressure 128/86 [Sitting] Blood Pressure 142/102 [Standing] Blood Pressure 124/92 [Supine] O2 Sat by Pulse 100 94 L Oximetry 10/01/22 14:30 Temperature Pulse Rate 84 Pulse Rate [ Sitting] Pulse Rate [ Standing] Pulse Rate [ Supine] Respiratory 22 Rate Blood Pressure 126/72 Blood Pressure [Sitting] Blood Pressure [Standing] Blood Pressure [Supine] O2 Sat by Pulse 99 Oximetry Medical Decision Making - Medical Decision Making Was pt. sent in by a medical professional or institution? @ -No Did you speak to anyone other than the patient for history? @ -EMS Did you review nursing and triage notes? @ -I reviewed and agree with the nursing notes Were old charts reviewed? @ -I looked at old CAT scans of the head. Differential Diagnosis? @ -Intracranial tumor, intracranial edema, intercranial bleed, stroke, recurrent seizure EKG interpreted by me (3pts min.)? @ -None X-rays interpreted by me (1pt min.)? @ -None CT interpreted by me (1pt min.)? @ -No acute abnormality noted it was interpreted by myself. U/S interpreted by me (1pt. min.)? @ -None What testing was considered but not performed? (CT, X-rays, U/S, labs)? Why? @ -No What meds were considered but not given? Why? @ -No Did you discuss the management of the patient with other professionals? @ -No Did you reconcile home meds? @ -No Was smoking cessation discussed for >3mins.? @ -No Was critical care preformed (if so, how long)? @ -No Were there social determinants of health that impacted care today? How? (Homelessness, low income, unemployed, alcoholism, drug addiction, transportation, low edu. Level, literacy, decrease access to med. care, fpc, rehab)? @ -No Was there de-escalation of care discussed even if they declined? (Discuss DNR or withdrawal of care, Hospice)? @ -No What co-morbidities impacted this encounter? (DM, HTN, Smoking, COPD, CAD, Cancer, CVA, Hep., AIDS, mental health diagnosis, sleep apnea, morbid obesity)? @ -No Was patient admitted / discharged? @ -Seizure history Undiagnosed new problem with uncertain prognosis? @ -No Drug Therapy requiring intensive monitoring for toxicity (Heparin, Nitro, Insulin, Cardizem)? @ -No Were any procedures done? @ -No Diagnosis/symptom? @ -Seizure aura Acute, or Chronic, or Acute on Chronic? @ -Chronic Uncomplicated (without systemic symptoms) or Complicated (systemic symptoms)? @ -Uncomplicated Side effects of treatment? @ -None Exacerbation, Progression, or Severe Exacerbation] @ -No Poses a threat to life or bodily function? @ -No Diagnosis/symptom? @ -History of glioblastoma Acute, or Chronic, or Acute on Chronic? @ -Chronic Uncomplicated (without systemic symptoms) or Complicated (systemic symptoms)? @ -Uncomplicated Side effects of treatment? @ -None Exacerbation, Progression, or Severe Exacerbation] @ -Known Poses a threat to life or bodily function? @ -None - Lab Data Result diagrams: 10/01/22 13:47 10/01/22 13:47 Lab Results 10/01/22 10/01/22 Range/Units 13:47 13:47 WBC 13.1 H (3.8-10.6) k/uL RBC 4.46 (3.80-5.40) m/uL Hgb 13.1 (11.4-16.0) gm/dL Hct 40.6 (34.0-46.0) % MCV 91.0 (80.0-100.0) fL MCH 29.3 (25.0-35.0) pg MCHC 32.2 (31.0-37.0) g/dL RDW 14.9 (11.5-15.5) % Plt Count 167 D (150-450) k/uL MPV 7.7 Neutrophils % 87 % Lymphocytes % 7 % Monocytes % 4 % Eosinophils % 0 % Basophils % 0 % Neutrophils # 11.3 H (1.3-7.7) k/uL Lymphocytes # 0.9 L (1.0-4.8) k/uL Monocytes # 0.6 (0-1.0) k/uL Eosinophils # 0.0 (0-0.7) k/uL Basophils # 0.1 (0-0.2) k/uL Sodium 135 L (137-145) mmol/L Potassium 4.3 (3.5-5.1) mmol/L Chloride 106 (98-107) mmol/L Carbon Dioxide 28 (22-30) mmol/L Anion Gap 1 mmol/L BUN 28 H (7-17) mg/dL Creatinine 0.49 L (0.52-1.04) mg/dL Est GFR (CKD-EPI)AfAm >90 (>60 ml/min/1.73 sqM) Est GFR (CKD-EPI)NonAf >90 (>60 ml/min/1.73 sqM) Glucose 104 H (74-99) mg/dL Calcium 8.4 (8.4-10.2) mg/dL Magnesium 2.1 (1.6-2.3) mg/dL Total Bilirubin 0.2 (0.2-1.3) mg/dL AST 18 (14-36) U/L ALT 39 H (4-34) U/L Alkaline Phosphatase 73 (38-126) U/L Total Protein 5.9 L (6.3-8.2) g/dL Albumin 3.4 L (3.5-5.0) g/dL Disposition Clinical Impression: Seizure disorder, Glioblastoma Disposition: HOME SELF-CARE Condition: Good Instructions (If sedation given, give patient instructions): Recurrent Seizures in Adults (ED) Is patient prescribed a controlled substance at d/c from ED?: No Referrals: Anastacio Michael MD [STAFF PHYSICIAN] - 1-2 days Time of Disposition: 15:45
[2022-10-01] MEDS ORDERED: SODIUM CHLORIDE 0.9% 1,000 ML IV ONE (13:49)
[2022-10-01] MEDS ORDERED: SODIUM CHLORIDE 0.9% 500 ML 500 ML IV ONE (13:49)
[2022-10-01 14:04] LABS: Basophils # (A) 0.1 k/uL (0-0.2); Basophils % (A) 0 %; Eosinophils % (A) 0 %; HCT 40.6 % (34.0-46.0); HGB 13.1 gm/dL (11.4-16.0); Lymphocytes # (A) 0.9 k/uL (1.0-4.8); Lymphocytes % (A) 7 %; MCH 29.3 pg (25.0-35.0); MCHC 32.2 g/dL (31.0-37.0); Mean Platelet Volume 7.7; Monocytes # (A) 0.6 k/uL (0-1.0); Monocytes % (A) 4 %; Neutrophils # (A) 11.3 k/uL (1.3-7.7); Neutrophils % (A) 87 %; RBC 4.46 m/uL (3.80-5.40); RDW 14.9 % (11.5-15.5); WBC 13.1 k/uL (3.8-10.6)
[2022-10-01 14:11] LABS: Platelet Count 167 k/uL (150-450)
[2022-10-01 14:20] LABS: ALT 39 U/L (4-34); AST 18 U/L (14-36); African American GFR (CKD) >90 (>60 ml/min/1.73 sqM); Albumin 3.4 g/dL (3.5-5.0); Alkaline Phosphatase 73 U/L (38-126); Anion Gap 1 mmol/L; Blood Urea Nitrogen 28 mg/dL (7-17); Calcium 8.4 mg/dL (8.4-10.2); Carbon Dioxide 28 mmol/L (22-30); Chloride 106 mmol/L (98-107); Glucose 104 mg/dL (74-99); Magnesium 2.1 mg/dL (1.6-2.3); Non-African American GFR(CKD) >90 (>60 ml/min/1.73 sqM); Potassium 4.3 mmol/L (3.5-5.1); Sodium 135 mmol/L (137-145); Total Bilirubin 0.2 mg/dL (0.2-1.3); Total Protein 5.9 g/dL (6.3-8.2)
--- NOTE | 2022-10-01 14:47 | CT ---
EXAMINATION TYPE: CT brain wo con CT DLP: 1045.4 mGycm, Automated exposure control for dose reduction was used. DATE OF EXAM: 10/01/2022 2:39 PM COMPARISON: Prior CT Brain from 09/08/2022. CLINICAL INDICATION:Female, 27 years old with history of History of glioblastoma, seizure. TECHNIQUE: Brain: Multiple axial CT images of the brain were obtained without IV contrast. Coronal and sagittal reformats reviewed. FINDINGS: Brain: Extra-axial spaces: No abnormal extra-axial fluid collections. Ventricular system: Within normal limits Cerebral parenchyma: No acute intraparenchymal hemorrhage or mass effect. The bautista-white junction is well differentiated. Cerebellum: Postsurgical changes to the left cerebellar hemisphere with encephalomalacia. Mass effect: No evidence of midline shift. Intracranial vasculature: unremarkable Soft tissues: Normal. Calvarium/osseous structures: No depressed skull fracture. Postsurgical changes to the left posterior skull. Paranasal sinuses and mastoid air cells: Mild scattered paranasal sinus disease. Visualized orbits: Orbital contents are intact. IMPRESSION: 1. No acute intracranial process. No significant change from prior examination. 2. Redemonstration of postsurgical changes of the left posterior cranial fossa/left cerebellar hemis phere.
[2022-10-01 16:22] VITALS: BP 119/94; PULSE 85; RESP 18
== END 2022-10-01 16:22 | disposition home or self-care (01) ==
LOC: EC 13:31
DX: G40.909 Epilepsy, unspecified, not intractable, without status epilepticus (principal); I10 Essential (primary) hypertension; F32.A Depression, unspecified
CPT/HCPCS: 36415; 70450; 80053; 80177; 83735; 85025; 96360; 96361; 99285

== ENCOUNTER 2022-10-24 11:59 | Emergency (ER) | payer MEDICARE ==
[2022-10-24] MEDS ORDERED: SODIUM CHLORIDE 0.9% 1,000 ML IV ONE (12:56)
[2022-10-24 13:27] LABS: Appearance,Urine Clear (Clear); Bilirubin,Urine Negative (Negative); Blood,Urine Negative (Negative); Color,Urine Light Yellow; Glucose,Urine (UA) Negative (Negative); Ketones,Urine Negative (Negative); Leukocyte Esterase,Urine Negative (Negative); Nitrite,Urine Negative (Negative); PH, Urine 6.5 (5.0-8.0); Protein,Urine Negative (Negative); Specific Gravity,Urine 1.025 (1.001-1.035); Urobilinogen,Urine <2.0 mg/dL (<2.0)
[2022-10-24 13:38] LABS: ALT 39 U/L (4-34); AST 22 U/L (14-36); African American GFR (CKD) >90 (>60 ml/min/1.73 sqM); Albumin 3.9 g/dL (3.5-5.0); Alkaline Phosphatase 75 U/L (38-126); Anion Gap 4 mmol/L; Basophils # (A) 0.2 k/uL (0-0.2); Basophils % (A) 1 %; Blood Urea Nitrogen 32 mg/dL (7-17); Calcium 8.5 mg/dL (8.4-10.2); Carbon Dioxide 28 mmol/L (22-30); Chloride 106 mmol/L (98-107); Eosinophils % (A) 0 %; Glucose 88 mg/dL (74-99); HGB 13.9 gm/dL (11.4-16.0); Lymphocytes % (A) 6 %; MCH 29.1 pg (25.0-35.0); MCV 88.2 fL (80.0-100.0); Magnesium 2.2 mg/dL (1.6-2.3); Mean Platelet Volume 7.1; Monocytes # (A) 0.9 k/uL (0-1.0); Monocytes % (A) 6 %; Neutrophils # (A) 13.1 k/uL (1.3-7.7); Neutrophils % (A) 85 %; Non-African American GFR(CKD) >90 (>60 ml/min/1.73 sqM); Platelet Count 217 k/uL (150-450); Potassium 4.5 mmol/L (3.5-5.1); RBC 4.77 m/uL (3.80-5.40); RDW 14.9 % (11.5-15.5); Sodium 138 mmol/L (137-145); Total Bilirubin 0.2 mg/dL (0.2-1.3); Total Protein 6.4 g/dL (6.3-8.2); WBC 15.4 k/uL (3.8-10.6)
--- NOTE | 2022-10-24 14:30 | ED ---
General Adult HPI - General Chief complaint: Syncope Stated complaint: Brain Cancer Pt, Syncope Time Seen by Provider: 10/24/22 12:43 Source: patient, RN notes reviewed Mode of arrival: wheelchair Limitations: no limitations - History of Present Illness Initial comments: This a 27-year-old female presents emergency Department with chief complaint is possible syncopal episode. Patient states she started feeling lightheaded at home states that she woke up in the ground. Patient does have a history of seizures as she has brain cancer, glioblastoma is under clinical trial treatment. She had prior treatment years ago at [facility]. Patient has been referred to [facility]. Patient denies missing of her medication. Patient states that she believes she passed out and did not have seizure. No head injuries complaint of leg swelling which is chronic as she is on 12 mg of dexamethasone daily. Patient states she has terminal illness - Related Data Home Medications Medication Instructions Recorded Confirmed Escitalopram [Lexapro] 10 mg PO DAILY 07/30/22 09/08/22 HYDROcodone/APAP 10-325MG [[place] 1 tab PO Q6HR 09/08/22 09/08/22 10-325] Ondansetron Odt [Zofran ODT] 4 mg PO Q6H PRN 09/08/22 09/08/22 Temozolomide [Temodar] 180 mg PO DIRECTED 09/08/22 09/08/22 Previous Rx's Medication Instructions Recorded dexAMETHasone [Decadron] 4 mg PO QID #70 tablet 09/12/22 levETIRAcetam [Keppra] 1,000 mg PO Q12HR #60 tab 09/12/22 Allergies Allergy/AdvReac Type Severity Reaction Status Date / Time No Known Allergies Allergy Verified 10/01/22 13:44 Review of Systems ROS Statement: Those systems with pertinent positive or pertinent negative responses have been documented in the HPI. ROS Other: All systems not noted in ROS Statement are negative. Past Medical History Past Medical History: Cancer, Hypertension Additional Past Medical History / Comment(s): brain cancer-Glioblastoma, seizures r/t brain cancer History of Any Multi-Drug Resistant Organisms: None Reported Past Surgical History: No Surgical Hx Reported Additional Past Surgical History / Comment(s): craniotomy 2019 Past Psychological History: Depression Smoking Status: Never smoker Past Alcohol Use History: None Reported Past Drug Use History: None Reported General Exam Limitations: no limitations General appearance: alert, in no apparent distress, anxious Head exam: Present: atraumatic, normocephalic, normal inspection Eye exam: Present: normal appearance, PERRL, EOMI. Absent: scleral icterus, conjunctival injection, periorbital swelling ENT exam: Present: normal exam, normal oropharynx, mucous membranes moist Neck exam: Present: normal inspection, full ROM. Absent: tenderness, meningismus, lymphadenopathy Respiratory exam: Present: normal lung sounds bilaterally. Absent: respiratory distress, wheezes, rales, rhonchi, stridor Cardiovascular Exam: Present: regular rate, normal rhythm, normal heart sounds. Absent: systolic murmur, diastolic murmur, rubs, gallop, clicks Extremities exam: Present: normal inspection, full ROM, normal capillary refill. Absent: tenderness, pedal edema, joint swelling, calf tenderness Neurological exam: Present: alert, oriented X3, CN II-XII intact, reflexes normal. Absent: motor sensory deficit Course Vital Signs 10/24/22 12:02 Temperature 98 F Pulse Rate 109 H Respiratory 20 Rate Blood Pressure 144/100 O2 Sat by Pulse 95 Oximetry EKG Findings - EKG Comments: EKG Findings:: EKG performed at 12:30 sinus rhythm rate of 96 FL 123/71 QT/QTC 303/357 - EKG Results: EKG: interpreted by NOLAN Medical Decision Making - Medical Decision Making Was pt. sent in by a medical professional or institution (EMILY Rogel, VIDEO COORDINATOR, urgent care, hospital, or care home...) When possible be specific @ -No Did you speak to anyone other than the patient for history (EMS, parent, family, police, friend...)? What history was obtained from this source @ -No Did you review nursing and triage notes (agree or disagree)? Why? @ -I reviewed and agree with nursing and triage notes Were old charts reviewed (outside hosp., previous admission, EMS record, old EKG, old radiological studies, urgent care reports/EKG's, care home records)? Report findings @ -No old charts were reviewed Differential Diagnosis (chest pain, altered mental status, abdominal pain women, abdominal pain men, vaginal bleeding, weakness, fever, dyspnea, syncope, headache, dizziness, GI bleed, back pain, seizure, CVA, palpatations, mental health)? @ -[Syncope, near syncope, seizure, this list is not all inclusive EKG interpreted by me (3pts min.). @ -As above X-rays interpreted by me (1pt min.). @ -None done CT interpreted by me (1pt min.). @ -None done U/S interpreted by me (1pt. min.). @ -None done What testing was considered but not performed or refused? (CT, X-rays, U/S, labs)? Why? @ -None What meds were considered but not given or refused? Why? @ -None Did you discuss the management of the patient with other professionals (professionals i.e. DrLatha, PA, VIDEO COORDINATOR, lab, RT, psych nurse, social insurance adviser, pediatric anesthesiologist, teacher, credit officer, housing case manager)? Give summary @ -Case management who consult to the hospice. Was smoking cessation discussed for >3mins.? @ -No Was critical care preformed (if so, how long)? @ -No Were there social determinants of health that impacted care today? How? (Homele ssness, low income, unemployed, alcoholism, drug addiction, transportation, low edu. Level, literacy, decrease access to med. care, correction, rehab)? @ -No Was there de-escalation of care discussed even if they declined (Discuss DNR or withdrawal of care, Hospice)? DNR status @ -Patient was evaluated by hospice in emergency department What co-morbidities impacted this encounter? (DM, HTN, Smoking, COPD, CAD, Cancer, CVA, ARF, Chemo, Hep., AIDS, mental health diagnosis, sleep apnea, morbid obesity)? @ -Glioblastoma Was patient admitted / discharged? Hospital course, mention meds given and route, prescriptions, significant lab abnormalities, going to OR and other pertinent info. @ -[Discharged -patient's labwork is unremarkable EKG did not show any acute changes. Patient most likely a syncopal episode. She is asymptomatic currently. Patient requested to be evaluated hospice as she has known multiple tumors, glioblastoma. Undiagnosed new problem with uncertain prognosis? @ -No Drug Therapy requiring intensive monitoring for toxicity (Heparin, Nitro, Insulin, Cardizem)? @ -No Were any procedures done? @ -No Diagnosis/symptom? @ -Syncope Acute, or Chronic, or Acute on Chronic? @ -Acute Uncomplicated (without systemic symptoms) or Complicated (systemic symptoms)? @ -Uncomplicated Side effects of treatment? @ -No Exacerbation, Progression, or Severe Exacerbation? @ -No Poses a threat to life or bodily function? How? (Chest pain, [place], [place], pneumonia, PE, COPD, DKA, ARF, appy, cholecystitis, CVA, Diverticulitis, Homicidal, Suicid al, threat to staff... and all critical care pts) @ -No - Lab Data Result diagrams: 10/24/22 13:03 10/24/22 13:03 Lab Results 10/24/22 10/24/22 10/24/22 Range/Units 13:03 13:03 13:03 WBC 15.4 H (3.8-10.6) k/uL RBC 4.77 (3.80-5.40) m/uL Hgb 13.9 (11.4-16.0) gm/dL Hct 42.0 (34.0-46.0) % MCV 88.2 (80.0-100.0) fL MCH 29.1 (25.0-35.0) pg MCHC 33.0 (31.0-37.0) g/dL RDW 14.9 (11.5-15.5) % Plt Count 217 (150-450) k/uL MPV 7.1 Neutrophils % 85 % Lymphocytes % 6 % Monocytes % 6 % Eosinophils % 0 % Basophils % 1 % Neutrophils # 13.1 H (1.3-7.7) k/uL Lymphocytes # 1.0 (1.0-4.8) k/uL Monocytes # 0.9 (0-1.0) k/uL Eosinophils # 0.0 (0-0.7) k/uL Basophils # 0.2 (0-0.2) k/uL Sodium 138 (137-145) mmol/L Potassium 4.5 (3.5-5.1) mmol/L Chloride 106 (98-107) mmol/L Carbon Dioxide 28 (22-30) mmol/L Anion Gap 4 mmol/L BUN 32 H (7-17) mg/dL Creatinine 0.55 (0.52-1.04) mg/dL Est GFR (CKD-EPI)AfAm >90 (>60 ml/min/1.73 sqM) Est GFR (CKD-EPI)NonAf >90 (>60 ml/min/1.73 sqM) Glucose 88 (74-99) mg/dL Calcium 8.5 (8.4-10.2) mg/dL Magnesium 2.2 (1.6-2.3) mg/dL Total Bilirubin 0.2 (0.2-1.3) mg/dL AST 22 (14-36) U/L ALT 39 H (4-34) U/L Alkaline Phosphatase 75 (38-126) U/L Total Protein 6.4 (6.3-8.2) g/dL Albumin 3.9 (3.5-5.0) g/dL Urine Color Light Yellow Urine Appearance Clear (Clear) Urine pH 6.5 (5.0-8.0) Ur Specific [place] 1.025 (1.001-1.035) Urine Protein Negative (Negative) Urine Glucose (UA) Negative (Negative) Urine Ketones Negative (Negative) Urine Blood Negative (Negative) Urine Nitrite Negative (Negative) Urine Bilirubin Negative (Negative) Urine Urobilinogen <2.0 (<2.0) mg/dL Ur Leukocyte Esterase Negative (Negative) Disposition Clinical Impression: Syncope Disposition: HOME SELF-CARE Condition: Stable Instructions (If sedation given, give patient instructions): Syncope (ED) Additional Instructions: Please return to the Emergency Department if symptoms worsen or any other co ncerns. Is patient prescribed a controlled substance at d/c from ED?: No Referrals: Jose Alejandro Segal MD [Primary Care Provider] - 1-2 days Time of Disposition: 15:30
[2022-10-24 16:27] VITALS: BP 135/83; PULSE 89; RESP 17; TEMP 97.9
== END 2022-10-24 16:30 | disposition home or self-care (01) ==
LOC: EC 11:59 → SUPCPDRO 11:59 → EC 16:30
DX: R55 Syncope and collapse (principal); I10 Essential (primary) hypertension; F32.A Depression, unspecified
CPT/HCPCS: 36415; 80053; 81003; 83735; 85025; 93005; 99284

== ENCOUNTER 2022-12-28 11:31 | Observation (INO) | payer MEDICARE ==
[2022-12-28] MEDS ORDERED: SODIUM CHLORIDE 0.9% 1,000 ML IV STA ×2 (11:37→13:26)
--- NOTE | 2022-12-28 11:46 | ED ---
General Adult HPI - General Chief complaint: Seizure Stated complaint: Seizures Time Seen by Provider: 12/28/22 11:37 Source: patient, EMS Mode of arrival: EMS Limitations: altered mental status - History of Present Illness Initial comments: Patient is a 27-year-old female who presents to the emergency department for evaluation of possible seizure versus syncope. Patient has history of glioblastoma she follows with Dr. Michael. She is no longer on hospice states she is starting her clinical trial today. She has had syncopal episodes in the past. In August she started to have seizures. She is on Keppra 1000 mg twice daily which she has been compliant with. Patient is alert and oriented 4 however has trouble answering questions due to confusion. She believes she felt dizzy today and woke up on the floor with urine and stool on her. Patient believes she may have had a seizure states she has had as of lately. She does not use blood thinners. Patient had a nosebleed initially which since resolved. She currently denies any pain. No headache, nausea, vomiting. No fever, chills, cold-like symptoms. No chest pain or shortness of breath. She denies history of arrhythmia and other structural cardiac issues. Spoke with ex- who states patient called him after possible seizure versus syncopal episode. Ex- went to help patient stand up when she felt very dizzy again and had another seizure. Patient has been seizure free for the past couple months until the past 3 weeks during which they have returned again. Patient had removal of tumor in 2019 by [facility]. He had an MRI last month which showed return of tumor. - Related Data Home Medications Medication Instructions Recorded Confirmed Escitalopram [Lexapro] 10 mg PO DAILY 07/30/22 11/04/22 HYDROcodone/APAP 10-325MG [[place] 1 tab PO Q6HR 09/08/22 11/04/22 10-325] Ondansetron Odt [Zofran ODT] 4 mg PO Q6H PRN 09/08/22 11/04/22 Temozolomide [Temodar] 180 mg PO DIRECTED 09/08/22 11/04/22 Acyclovir [Zovirax] 400 mg PO BID 11/04/22 11/04/22 Sulfamethoxazole/Trimethoprim 1 tab PO DIRECTED 11/04/22 11/04/22 [Bactrim DS 800-160 mg] dexAMETHasone [Decadron] 4 mg PO BID 11/04/22 11/04/22 Previous Rx's Medication Instructions Recorded levETIRAcetam [Keppra] 1,000 mg PO Q12HR #60 tab 09/12/22 clindamycin HCL 300 mg PO TID 10 Days #30 capsule 12/02/22 Allergies Allergy/AdvReac Type Severity Reaction Status Date / Time cephalexin AdvReac Nausea & Verified 12/28/22 11:39 Vomiting & Diarrhea Review of Systems ROS Statement: Those systems with pertinent positive or pertinent negative responses have been documented in the HPI. ROS Other: All systems not noted in ROS Statement are negative. Past Medical History Past Medical History: Cancer, Hypertension, Seizure Disorder Additional Past Medical History / Comment(s): .brain cancer-Glioblastoma, seizures r/t brain cancer History of Any Multi-Drug Resistant Organisms: None Reported Past Surgical History: No Surgical Hx Reported Additional Past Surgical History / Comment(s): craniotomy 2019 Past Anesthesia/Blood Transfusion Reactions: No Reported Reaction Past Psychological History: Depression Smoking Status: Never smoker Past Alcohol Use History: None Reported Past Drug Use History: None Reported General Exam Limitations: altered mental status General appearance: alert, in no apparent distress Head exam: Present: atraumatic, normocephalic, normal inspection Eye exam: Present: normal appearance, PERRL, EOMI. Absent: scleral icterus, conjunctival injection, periorbital swelling ENT exam: Present: normal oropharynx (no tongue injury), TM's normal bilaterally Neck exam: Present: normal inspection, full ROM. Absent: tenderness Respiratory exam: Present: normal lung sounds bilaterally. Absent: respiratory distress, wheezes, rales, rhonchi, stridor Cardiovascular Exam: Present: regular rate, normal rhythm, normal heart sounds. Absent: systolic murmur, diastolic murmur, rubs, gallop, clicks GI/Abdominal exam: Present: soft, normal bowel sounds. Absent: distended, tenderness, guarding, rebound, rigid Extremities exam: Present: normal inspection, normal capillary refill Neurological exam: Present: alert, oriented X3, CN II-XII intact Skin exam: Present: warm, dry, intact, normal color. Absent: rash Course Vital Signs 12/28/22 12/28/22 12/28/22 11:34 12:11 12:30 Temperature 98.2 F Pulse Rate 83 80 81 Respiratory 16 10 L 13 Rate Blood Pressure 124/83 139/110 129/86 O2 Sat by Pulse 98 94 L Oximetry 12/28/22 12/28/22 12/28/22 13:00 13:30 13:38 Temperature 98.1 F Pulse Rate 79 Respiratory 15 Rate Blood Pressure 131/94 O2 Sat by Pulse 98 Oximetry Medical Decision Making - Medical Decision Making EKG taken at 11:38, sinus rhythm, no ST segment or T-wave abnormality Ventricular rate 75, NC interval 138, QRS duration 76, QTc 384 Was pt. sent in by a medical professional or institution (, PA, PIPE OR STEAM FITTER FURNACE INSTALLER, urgent care, hospital, or [facility]...) When possible be specific @ -No Did you speak to anyone other than the patient for history (EMS, parent, family, police, friend...)? What history was obtained from this source @ -No Did you review nursing and triage notes (agree or disagree)? Why? @ -I reviewed and agree with nursing and triage notes Were old charts reviewed (outside hosp., previous admission, EMS record, old EKG, old radiological studies, urgent care reports/EKG's, [facility] records)? Report findings @ -No old charts were reviewed Differential Diagnosis (chest pain, altered mental status, abdominal pain women, abdominal pain men, vaginal bleeding, weakness, fever, dyspnea, syncope, headache, dizziness, GI bleed, back pain, seizure, CVA, palpatations, mental health)? @ -Differential Seizure: Recurrent seizure disorder, febrile seizure, alcohol withdrawal, stimulants, meningitis, encephalitis, intercranial hemorrhage, intracranial tumor, stroke, eclampsia, thyrotoxicosis, hypocalcemia, hyponatremia, hypernatremia, hypomagnesemia, psychogenic, this is not meant to be an all-inclusive list. EKG interpreted by me (3pts min.). @ -As above X-rays interpreted by me (1pt min.). @ -None done CT interpreted by me (1pt min.). @ -Yes, CT of the brain and C-spine shows encephalomalacia of the left cerebellar hemisphere without change compared to old exam. There is no acute intracranial abnormality. CT of the facial bones negative for acute process. CT and of the chest negative for PE and other acute process. U/S interpreted by me (1pt. min.). @ -None done What testing was considered but not performed or refused? (CT, X-rays, U/S, labs)? Why? @ -None What meds were considered but not given or refused? Why? @ -None Did you discuss the management of the patient with other professionals (professionals i.e. , PA, PIPE OR STEAM FITTER FURNACE INSTALLER, lab, RT, psych nurse, social work lecturer, printing plate clerk, teacher, financial aid officer, pillowcase folder)? Give summary @ -No Was smoking cessation discussed for >3mins.? @ -No Was critical care preformed (if so, how long)? @ -No Were there social determinants of health that impacted care today? How? (Homelessness, low income, unemployed, alcoholism, drug addiction, transportation, low edu. Level, literacy, decrease access to med. care, alf, rehab)? @ -No Was there de-escalation of care discussed even if they declined (Discuss DNR or withdrawal of care, Hospice)? DNR status @ -No What co-morbidities impacted this encounter? (DM, HTN, Smoking, COPD, CAD, Cancer, CVA, ARF, Chemo, Hep., AIDS, mental health diagnosis, sleep apnea, morbid obesity)? @ -None Was patient admitted / discharged? Hospital course, mention meds given and route, prescriptions, significant lab abnormalities, going to OR and other pertinent info. @ -Patient presenting for breakthrough seizure and possible syncope. Patient presents with confusion she is alert and oriented 4. She is hemodynamically stable. IV fluids started. Shortly after evaluation patient had another seizure for about 45 seconds. Patient given loading dose of Keppra and Ativan. Laboratory studies obtained. There is mild leukocytosis at 12.3. Lactic acid is elevated at 2.4, likely related to seizure. D-dimer is elevated at 1.17. CT of the brain and C-spine shows encephalomalacia of the left cerebellar hemisphere without change compared to old exam. CT of the chest and is negative for PE and other acute process. Patient did not have any further seizure activity while in the emergency department. Case discussed with patient and family. Patient's surgeon is at [facility] I did recommend transfer for continuation of care. Patient family states she is not a surgical candidate they do not want to go to [facility]. They are requesting to stay here. Case is discussed with Dr. Graham accepts admission. Neurology is on consult. Patient admitted in stable condition. Undiagnosed new problem with uncertain prognosis? @ -No Drug Therapy requiring intensive monitoring for toxicity (Heparin, Nitro, Insulin, Cardizem)? @ -No Were any procedures done? @ -No Diagnosis/symptom? @ -breakthrough seizure, glioblastoma Acute, or Chronic, or Acute on Chronic? @ -acute Uncomplicated (without systemic symptoms) or Complicated (systemic symptoms)? @ -uncomplicated Side effects of treatment? @ -No Exacerbation, Progression, or Severe Exacerbation? @ -No Poses a threat to life or bodily function? How? (Chest pain, [place], [place], pneumonia, PE, COPD, DKA, ARF, appy, cholecystitis, CVA, Diverticulitis, Homicidal, Suicidal, threat to staff... and all critical care pts) @ -No Dr. Justice is my attending - Lab Data Result diagrams: 12/28/22 12:07 12/28/22 12:07 Lab Results 12/28/22 12/28/22 12/28/22 Range/Units 12:07 12:07 12:07 WBC 12.3 H (3.8-10.6) k/uL RBC 4.23 (3.80-5.40) m/uL Hgb 13.2 (11.4-16.0) gm/dL Hct 37.2 (34.0-46.0) % MCV 88.1 (80.0-100.0) fL MCH 31.3 (25.0-35.0) pg MCHC 35.5 (31.0-37.0) g/dL RDW 17.0 H (11.5-15.5) % Plt Count 198 (150-450) k/uL MPV 7.5 Neutrophils % 75 % Lymphocytes % 15 % Monocytes % 6 % Eosinophils % 0 % Basophils % 1 % Neutrophils # 9.2 H (1.3-7.7) k/uL Lymphocytes # 1.8 (1.0-4.8) k/uL Monocytes # 0.7 (0-1.0) k/uL Eosinophils # 0.0 (0-0.7) k/uL Basophils # 0.1 (0-0.2) k/uL Poikilocytosis Slight Anisocytosis Slight D-Dimer (<0.60) mg/L FEU Sodium 133 L (137-145) mmol/L Potassium 3.9 (3.5-5.1) mmol/L Chloride 99 (98-107) mmol/L Carbon Dioxide 29 (22-30) mmol/L Anion Gap 5 mmol/L BUN 22 H (7-17) mg/dL Creatinine 0.53 (0.52-1.04) mg/dL Est GFR (CKD-EPI)AfAm >90 (>60 ml/min/1.73 sqM) Est GFR (CKD-EPI)NonAf >90 (>60 ml/min/1.73 sqM) Glucose 95 (74-99) mg/dL Lactic Ac Sepsis Rflx Plasma Lactic Acid Jermain 2.4 H* (0.7-2.0) mmol/L Calcium 8.3 L (8.4-10.2) mg/dL Magnesium 2.0 (1.6-2.3) mg/dL Total Bilirubin 0.3 (0.2-1.3) mg/dL AST 26 (14-36) U/L ALT 42 H (4-34) U/L Alkaline Phosphatase 63 (38-126) U/L Total Protein 5.9 L (6.3-8.2) g/dL Albumin 3.5 (3.5-5.0) g/dL Urine Color Urine Appearance (Clear) Urine pH (5.0-8.0) Ur Specific [place] (1.001-1.035) Urine Protein (Negative) Urine Glucose (UA) (Negative) Urine Ketones (Negative) Urine Blood (Negative) Urine Nitrite (Negative) Urine Bilirubin (Negative) Urine Urobilinogen (<2.0) mg/dL Ur Leukocyte Esterase (Negative) Urine RBC (0-5) /hpf Urine WBC (0-5) /hpf Ur Squamous Epith Cells (0-4) /hpf Urine Mucus (None) /hpf 12/28/22 12/28/22 12/28/22 Range/Units 12:07 12:45 14:40 WBC (3.8-10.6) k/uL RBC (3.80-5.40) m/uL Hgb (11.4-16.0) gm/dL Hct (34.0-46.0) % MCV (80.0-100.0) fL MCH (25.0-35.0) pg MCHC (31.0-37.0) g/dL RDW (11.5-15.5) % Plt Count (150-450) k/uL MPV Neutrophils % % Lymphocytes % % Monocytes % % Eosinophils % % Basophils % % Neutrophils # (1.3-7.7) k/uL Lymphocytes # (1.0-4.8) k/uL Monocytes # (0-1.0) k/uL Eosinophils # (0-0.7) k/uL Basophils # (0-0.2) k/uL Poikilocytosis Anisocytosis D-Dimer 1.17 H (<0.60) mg/L FEU Sodium (137-145) mmol/L Potassium (3.5-5.1) mmol/L Chloride (98-107) mmol/L Carbon Dioxide (22-30) mmol/L Anion Gap mmol/L BUN (7-17) mg/dL Creatinine (0.52-1.04) mg/dL Est GFR (CKD-EPI)AfAm (>60 ml/min/1.73 sqM) Est GFR (CKD-EPI)NonAf (>60 ml/min/1.73 sqM) Glucose (74-99) mg/dL Lactic Ac Sepsis Rflx Y Plasma Lactic Acid Jermain (0.7-2.0) mmol/L Calcium (8.4-10.2) mg/dL Magnesium (1.6-2.3) mg/dL Total Bilirubin (0.2-1.3) mg/dL AST (14-36) U/L ALT (4-34) U/L Alkaline Phosphatase (38-126) U/L Total Protein (6.3-8.2) g/dL Albumin (3.5-5.0) g/dL Urine Color Light Yellow Urine Appearance Clear (Clear) Urine pH 6.5 (5.0-8.0) Ur Specific [place] 1.039 H (1.001-1.035) Urine Protein Negative (Negative) Urine Glucose (UA) Negative (Negative) Urine Ketones Negative (Negative) Urine Blood Negative (Negative) Urine Nitrite Negative (Negative) Urine Bilirubin Negative (Negative) Urine Urobilinogen <2.0 (<2.0) mg/dL Ur Leukocyte Esterase Trace H (Negative) Urine RBC 4 (0-5) /hpf Urine WBC 2 (0-5) /hpf Ur Squamous Epith Cells 1 (0-4) /hpf Urine Mucus Rare H (None) /hpf Disposition Clinical Impression: Breakthrough seizure, GBM (glioblastoma multiforme) Disposition: ADMITTED IP TO THIS HOSP Condition: Stable Referrals: Jose Alejandro Segal MD [Primary Care Provider] - 1-2 days
[2022-12-28] MEDS ORDERED: levETIRAcetam IV 1,000 MG in SALINE 1 100ML.BAG IVPB STA (12:05)
[2022-12-28] MEDS ORDERED: LORazepam 2 MG/ML INJ IV STA ×2 (12:06)
[2022-12-28 12:22] LABS: Anisocytosis Slight; Basophils # (A) 0.1 k/uL (0-0.2); Basophils % (A) 1 %; Eosinophils % (A) 0 %; HCT 37.2 % (34.0-46.0); HGB 13.2 gm/dL (11.4-16.0); Lymphocytes # (A) 1.8 k/uL (1.0-4.8); Lymphocytes % (A) 15 %; MCH 31.3 pg (25.0-35.0); MCHC 35.5 g/dL (31.0-37.0); MCV 88.1 fL (80.0-100.0); Mean Platelet Volume 7.5; Monocytes # (A) 0.7 k/uL (0-1.0); Monocytes % (A) 6 %; Neutrophils # (A) 9.2 k/uL (1.3-7.7); Neutrophils % (A) 75 %; Platelet Count 198 k/uL (150-450); Poikilocytosis Slight; RBC 4.23 m/uL (3.80-5.40); WBC 12.3 k/uL (3.8-10.6)
[2022-12-28 12:40] LABS: ALT 42 U/L (4-34); AST 26 U/L (14-36); African American GFR (CKD) >90 (>60 ml/min/1.73 sqM); Albumin 3.5 g/dL (3.5-5.0); Alkaline Phosphatase 63 U/L (38-126); Anion Gap 5 mmol/L; Blood Urea Nitrogen 22 mg/dL (7-17); Calcium 8.3 mg/dL (8.4-10.2); Carbon Dioxide 29 mmol/L (22-30); Chloride 99 mmol/L (98-107); Glucose 95 mg/dL (74-99); Non-African American GFR(CKD) >90 (>60 ml/min/1.73 sqM); Potassium 3.9 mmol/L (3.5-5.1); Sodium 133 mmol/L (137-145); Total Bilirubin 0.3 mg/dL (0.2-1.3); Total Protein 5.9 g/dL (6.3-8.2)
--- NOTE | 2022-12-28 14:13 | XR ---
EXAMINATION TYPE: XR chest 2V DATE OF EXAM: 12/28/2022 COMPARISON: 07/23/2022 INDICATION: Possible syncope, seizure TECHNIQUE: Frontal and lateral views of the chest are obtained. FINDINGS: The heart size is normal. The pulmonary vasculature is normal. The lungs are clear. IMPRESSION: 1. No acute pulmonary process.
--- NOTE | 2022-12-28 14:23 | CT ---
CT CHEST FOR PULMONARY EMBOLISM. EXAMINATION TYPE: CT chest angio for PE DATE OF EXAM: 12/28/2022 INDICATION: PE, history of Glioblastoma CT DLP: 681.1 mGycm, Automated exposure control for dose reduction was used. CONTRAST: Patient injected with 100 ml mL of Isovue 370. COMPARISON: None TECHNIQUE: CT of the chest is performed on a spiral scan at 2 mm thick sections. Study is performed with intravenous contrast timed for evaluation for pulmonary embolism. This will limit additional po rtions of the evaluation. 3-D MIP images reconstructed by the technologist are reviewed on the compu ter in the coronal and sagittal planes. FINDINGS: No persistent filling defects are evident to suggest an acute pulmonary embolism. No mediastinal or hilar adenopathy enlarged by CT criteria is evident. The ascending aorta diameter at the level of the main pulmonary artery is 3.7 cm. The main pulmonary artery diameter at the bifur cation is 2.3 cm. Lung windows are clear. Limited CT section through the upper abdomen are unremarkable. IMPRESSIONS: 1. No acute pulmonary process.
--- NOTE | 2022-12-28 14:28 | CT ---
EXAMINATION TYPE: CT facial bones wo con DATE OF EXAM: 12/28/2022 COMPARISON: None HISTORY: Seizure with fall, history of glioblastoma CT DLP: 1275.1 mGycm Automated exposure control for dose reduction was used. Contrast: None Technique: Axial images 2 elevated thick sections. Reconstructed images in the coronal and sagittal p blaine. FINDINGS: Facial bones appear intact. Greater wings of the sphenoid and nasal bones are intact. Minimal septal deviation is present. Orbital floors and medial spivey of the orbits are intact. Globes appear symmetr ical. Extraocular muscles appear unremarkable. Intraconal and extraconal fat appears unremarkable. Pe trous ridges are intact. Internal auditory canals are patent. Mastoid air cells are clear. Ethmoid ai r cells and maxillary sinuses as visualized are clear. Sphenoid sinuses and frontal sinuses are clear . There is a prior left occipital lobe craniotomy. IMPRESSION: 1. NO ACUTE OSSEOUS ABNORMALITIES FACIAL BONES.
--- NOTE | 2022-12-28 14:36 | CT ---
EXAMINATION TYPE: CT brain cspine wo con DATE OF EXAM: 12/28/2022 COMPARISON: 10/01/2022 HISTORY: Seizure with fall, history of glioblastoma CT DLP: 1275.1 mGycm Automated exposure control for dose reduction was used. Images of the brain and cervical spine obtained with no contrast. There is some cerebral atrophy. There is slight enlargement of the ventricles. There is no mass effec t. No midline shift. No sign of intracranial hemorrhage. There is left occipital craniotomy defect wi th hypodensity in the left cerebellar hemisphere. There is normal aeration of the mastoid sinuses. Se lla turcica is normal. The cervical vertebra have normal alignment. Posterior elements are intact. Facet joints are intact. Disc spaces are fairly normal. Prevertebral soft tissues are intact. IMPRESSION: Negative CT scan of the cervical spine. There is encephalomalacia left cerebellar hemisphere without change compared to the old exam. No acut e intracranial abnormality. Cerebral atrophy.
[2022-12-28 14:56] LABS: Appearance,Urine Clear (Clear); Bilirubin,Urine Negative (Negative); Blood,Urine Negative (Negative); Color,Urine Light Yellow; Glucose,Urine (UA) Negative (Negative); Ketones,Urine Negative (Negative); Leukocyte Esterase,Urine Trace (Negative); Mucus,Urine Rare /hpf; Nitrite,Urine Negative (Negative); PH, Urine 6.5 (5.0-8.0); Protein,Urine Negative (Negative); RBC,Urine 4 /hpf (0-5); Specific Gravity,Urine 1.039 (1.001-1.035); Squamous Epithelial Cell,Urine 1 /hpf (0-4); Urobilinogen,Urine <2.0 mg/dL (<2.0); WBC,Urine 2 /hpf (0-5)
[2022-12-28] MEDS ORDERED: NALOXONE 0.4 MG/ML 1 ML VIAL IV PRN (14:56)
[2022-12-28] MEDS ORDERED: LORazepam 2 MG/ML INJ IV PRN (15:30)
[2022-12-28] MEDS ORDERED: ACETAMINOPHEN TAB 325 MG TAB PO PRN (15:34)
[2022-12-28] MEDS ORDERED: HYDROcodone/APAP 10-325MG 1 EACH TAB PO PRN (15:34)
[2022-12-28] MEDS ORDERED: ONDANSETRON 4 MG TAB PO PRN (15:34)
--- NOTE | 2022-12-28 15:34 | P.HPIM ---
History of Present Illness H&P Date: 12/28/22 Patient is a 27-year-old female with history of glioblastoma status post resection, now with a recurrence, seizure history, presenting with breakthrough seizures. She claims that she has been having new onset seizures starting late last year. She was started on Keppra, and her seizures have subsided. However, 3 weeks ago she started developing breakthrough seizures and. 2 weeks ago she was treated for inguinal abscess with oral antibiotics. She denies any chest pain, shortness of breath, abdominal pain, nausea, vomiting, constipation. She does have urinary frequency or just been going on for a few months. She has chronic diarrhea, has about 4 bowel movements per day. She is currently enrolled in a clinical trial, but has not started the medication yet. In the ED, on arrival she was afebrile, pulse at 83, respiratory rate is 16, blood pressure 124/83, saturating at 98% on room air. Laboratory workup was significant for WBC of 12.3, d-dimer 1.17, sodium 133, BUN 22, creatinine 0.53, lactic acid 2.4, ALT 42. X-ray showed normal sinus rhythm. Chest x-ray showed no acute process. Chest CTA showed no PE. Brain CT showed encephalomalacia of left cerebellar hemisphere without changes compared to old exam, no acute intracranial abnormality. Face CT showed no acute process. Pertinent positives and negatives as discussed in HPI, a complete review of systems was performed and all other systems are negative. Patient seen and examined at bedside. Vital signs reviewed General: nontoxic, no distress, appears at stated age Derm: warm, dry Head: atraumatic, normocephalic, symmetric Eyes: EOMI, no lid lag, anicteric sclera, pupils equal round reactive to light ENT: Nose and ears atraumatic Neck: No thyromegaly, supple Mouth: no lip lesion, mucus membranes moist Cardiovascular: S1S2 reg, no murmur, no edema Lungs: clear to auscultation bilateral, no rhonchi, no rales, no wheeze, no accessory muscle use Abdominal: soft, nontender to palpation, no guarding, no appreciable organomegaly Ext: no gross muscle atrophy, muscle strength muscle strength 5 out of 5 in all 4 extremities, no contractures Neuro: CN II-XII grossly intact Psych: Alert, oriented, appropriate affect Assessment/Plan: Breakthrough seizures History of seizures History of glioblastoma status post resection, now with recurrence Leukocytosis Elevated d-dimer Mild hyponatremia Azotemia Lactic acidosis -Continue Keppra IV 1000 milligrams twice a day -Ativan IV when necessary for breakthrough seizures -Neuro checks and seizure precautions -EEG ordered -Neurology consulted -Oncology consulted -Patient was told that she cannot be on any different drugs for her seizures due to significant drug drug interaction with clinical trial drug. -Leukocytosis likely reactive, repeat CBC tomorrow, UA pending -Elevated d-dimer likely in the setting of malignancy, CTA chest was negative for PE -Mild hyponatremia, likely hypovolemic at the indicated by azotemia, on normal saline at 1 30 mL an hour -Lactic acidosis likely in the setting of seizure The patient is admitted with an anticipated less than 2 midnight stay as an observation status for evaluation of active seizures. Patient is currently critically ill, needs close monitoring. Surrogate decision-maker: Ex- CODE STATUS:Full code DVT prophylaxis: Lovenox Anticipated discharge date: Pending clinical course Anticipated discharge place: Pending clinical course A total of 65 minutes was spent on the care of this complex patient more than 50% of the time was spent in counseling and care coordination. Past Medical History Past Medical History: Cancer, Hypertension, Seizure Disorder Additional Past Medical History / Comment(s): .brain cancer-Glioblastoma, seizures r/t brain cancer History of Any Multi-Drug Resistant Organisms: None Reported Past Surgical History: No Surgical Hx Reported Additional Past Surgical History / Comment(s): craniotomy 2019 Past Anesthesia/Blood Transfusion Reactions: No Reported Reaction Past Psychological History: Depression Smoking Status: Never smoker Past Alcohol Use History: None Reported Past Drug Use History: None Reported Medications and Allergies Home Medications Medication Instructions Recorded Confirmed Type Escitalopram [Lexapro] 10 mg PO DAILY 07/30/22 12/28/22 History HYDROcodone/APAP 10-325MG [[place] 1 tab PO Q6H PRN 09/08/22 12/28/22 History 10-325] Acyclovir [Zovirax] 400 mg PO BID 11/04/22 12/28/22 History dexAMETHasone [Decadron] 4 mg PO TID 11/04/22 12/28/22 History Acetaminophen Tab [Tylenol] 650 mg PO Q4H PRN 12/28/22 12/28/22 History Butalb/APAP/Caff 50-325-40Mg 1 tab PO Q4H PRN 12/28/22 12/28/22 History [Fioricet 50-325-40] LORazepam [Ativan] 0.5 mg PO DAILY PRN 12/28/22 12/28/22 History Multivitamins, Thera [Multivitamin 1 tab PO DAILY 12/28/22 12/28/22 History (formulary)] levETIRAcetam [Keppra] 1,000 mg PO BID 12/28/22 12/28/22 History ondansetron HCL [Zofran] 8 mg PO Q6H PRN 12/28/22 12/28/22 History Allergies Allergy/AdvReac Type Severity Reaction Status Date / Time cephalexin AdvReac Nausea & Verified 12/28/22 15:22 Vomiting & Diarrhea Physical Exam Vitals: Vital Signs Temp Pulse Resp BP Pulse Ox 12/28/22 13:38 98.1 F 12/28/22 13:30 79 15 98 12/28/22 13:00 131/94 12/28/22 12:30 81 13 129/86 94 L 12/28/22 12:11 80 10 L 139/110 12/28/22 11:34 98.2 F 83 16 124/83 98 Intake and Output 12/28/22 12/28/22 12/28/22 06:59 14:59 22:59 Other: Weight 102.058 kg Results CBC & Chem 7: 12/28/22 12:07 12/28/22 12:07 Labs: Abnormal Lab Results - Last 24 Hours (Table) 12/28/22 12/28/22 12/28/22 Range/Units 12:07 12:07 12:07 WBC 12.3 H (3.8-10.6) k/uL RDW 17.0 H (11.5-15.5) % Neutrophils # 9.2 H (1.3-7.7) k/uL D-Dimer (<0.60) mg/L FEU Sodium 133 L (137-145) mmol/L BUN 22 H (7-17) mg/dL Plasma Lactic Acid Jermain 2.4 H* (0.7-2.0) mmol/L Calcium 8.3 L (8.4-10.2) mg/dL ALT 42 H (4-34) U/L Total Protein 5.9 L (6.3-8.2) g/dL Ur Specific [place] (1.001-1.035) Ur Leukocyte Esterase (Negative) Urine Mucus (None) /hpf 12/28/22 12/28/22 Range/Units 12:07 14:40 WBC (3.8-10.6) k/uL RDW (11.5-15.5) % Neutrophils # (1.3-7.7) k/uL D-Dimer 1.17 H (<0.60) mg/L FEU Sodium (137-145) mmol/L BUN (7-17) mg/dL Plasma Lactic Acid Jermain (0.7-2.0) mmol/L Calcium (8.4-10.2) mg/dL ALT (4-34) U/L Total Protein (6.3-8.2) g/dL Ur Specific [place] 1.039 H (1.001-1.035) Ur Leukocyte Esterase Trace H (Negative) Urine Mucus Rare H (None) /hpf
[2022-12-28] MEDS: dexAMETHasone 4 MG TAB PO SCH ×2 (16:53→21:18)
[2022-12-28] MEDS ORDERED: levETIRAcetam IV 1,000 MG in SALINE 1 100ML.BAG IVPB SCH (21:00)
[2022-12-28] MEDS: ACYCLOVIR 200 MG CAP PO SCH (21:18)
[2022-12-28] MEDS ORDERED: SODIUM CHLORIDE 0.9% 1,000 ML IV ONE ×2 (21:31→21:32)
[2022-12-29] MEDS ORDERED: levETIRAcetam IV 500 MG in SODIUM CHLORIDE 0.9% 100 ML IVPB STA (00:39)
[2022-12-29] MEDS: dexAMETHasone 4 MG TAB PO SCH ×3 (08:05→20:44)
[2022-12-29] MEDS: levETIRAcetam IV 1,500 MG in SALINE 1 100ML.BAG IVPB SCH ×2 (08:05→20:44)
[2022-12-29] MEDS: ACYCLOVIR 200 MG CAP PO SCH ×2 (08:05→20:44)
[2022-12-29] MEDS: ESCITALOPRAM 10 MG TAB PO SCH (08:05)
[2022-12-29] MEDS: MULTIVITAMINS, THERA 1 EACH TAB PO SCH (08:05)
[2022-12-29 09:15] LABS: Basophils # (A) 0.08 X 10*3/uL (0.00-0.10); Basophils % (A) 0.7 %; Eosinophils # (A) 0.28 X 10*3/uL (0.04-0.35); Eosinophils % (A) 2.6 %; HCT 39.9 % (37.2-46.3); HGB 12.7 g/dL (12.0-15.0); Immature Grans, Automated 4.5 %; Lymphocytes # (A) 1.09 X 10*3/uL (0.90-5.00); Lymphocytes % (A) 9.9 %; MCH 29.6 pg (27.0-32.0); MCHC 31.8 g/dL (32.0-37.0); Mean Platelet Volume 9.6 fL (9.5-12.2); Monocytes # (A) 0.58 X 10*3/uL (0.20-1.00); Monocytes % (A) 5.3 %; NRBC Per 100 WBC 0.2 /100 WBCS (0.0-0.0); Neutrophils # (A) 8.46 X 10*3/uL (1.80-7.70); Platelet Count 196 X 10*3/uL (140-440); RBC 4.29 X 10*6/uL (4.10-5.20); RDW 17.1 % (11.5-14.5); WBC 10.98 X 10*3/uL (4.50-10.00)
[2022-12-29 09:24] LABS: African American GFR (CKD) 145.2 (60.0-200.0); Anion Gap 10.7 mmol/L (10.00-18.00); BUN/Creat Ratio 26.8 Ratio (12.00-20.00); Blood Urea Nitrogen 15.6 mg/dL (9.0-27.0); Calcium 8.8 mg/dL (8.7-10.3); Carbon Dioxide 24.9 mmol/L (20.0-27.5); Non-African American GFR(CKD) 125.3 (60.0-200.0); Potassium 4.3 mmol/L (3.5-5.5)
--- NOTE | 2022-12-29 11:47 | P.PN ---
Subjective Progress Note Date: 12/29/22 Hospital Course: 27-year-old female with history of glioblastoma status post resection and gamma knife radiation, now with a recurrence, seizure history, presenting with breakthrough seizures. In the ED, on arrival she was afebrile, pulse at 83, respiratory rate is 16, blood pressure 124/83, saturating at 98% on room air. Laboratory workup was significant for WBC of 12.3, d-dimer 1.17, sodium 133, BUN 22, creatinine 0.53, lactic acid 2.4, ALT 42. X-ray showed normal sinus rhythm. Chest x-ray showed no acute process. Chest CTA showed no PE. Brain CT showed encephalomalacia of left cerebellar hemisphere without changes compared to old exam, no acute intracranial abnormality. Face CT showed no acute process. Neurology consulted. Currently on IV Keppra. Subjective: Patient seen and examined at bedside. No acute events overnight. However, her lactic acid was elevated. She was given 2 L of fluids overnight. She denies any further seizure-like activity. She still feels lightheaded occasionally when she gets up out of the bed. However, this has been a chronic problem. Pertinent positives and negatives as discussed above, a complete review of systems was performed and all other systems are negative. Vitals Signs Reviewed. General: nontoxic, no distress, appears at stated age, morbidly obese Derm: warm, dry Head: atraumatic, normocephalic, symmetric Eyes: EOMI, no lid lag, anicteric sclera Mouth: no lip lesion, mucus membranes moist Cardiovascular: S1S2 reg, no murmur Lungs: CTA bilateral, no rhonchi, no rales , no accessory muscle use Abdominal: soft, nontender to palpation, no guarding, no appreciable organomegaly Ext: no gross muscle atrophy, no edema, no contractures, left-sided weakness, chronic Neuro: CN II-XI grossly intact, no focal neuro deficits Psych: Alert, oriented, appropriate affect Data Reviewed Today: Pertinent Labs: WBC 10.9, sodium 141, potassium 4.3, creatinine 0.6, lactate 3.3 Assessment and Plan: Breakthrough seizures History of seizures History of glioblastoma status post resection and Surgery, now with recurrence Leukocytosis, reactive Elevated d-dimer Lactic acidosis -Continue Keppra IV 1500 milligrams twice a day -Ativan IV when necessary for breakthrough seizures -Neuro checks and seizure precautions -EEG pending -Neurology consulted -Oncology consulted -Patient was told that she cannot be on any different drugs for her seizures due to significant drug drug interaction with clinical trial drug. -Leukocytosis likely reactive, UA shows negative nitrites, trace leukocyte esterase -Elevated d-dimer likely in the setting of malignancy, CTA chest was negative for PE -Lactic acidosis likely type B, in the setting of seizure and malignancy, blood pressure has been stable Resolved: Mild hyponatremia Azotemia DVT ppx: Lovenox Code status: Full code Anticipated discharge place: Home Anticipated discharge time: Pending clinical course Objective - Vital Signs Vital signs: Vital Signs Temp 97.9 F 12/29/22 07:00 Pulse 82 12/29/22 07:00 Resp 18 12/29/22 07:00 BP 129/84 12/29/22 07:00 Pulse Ox 93 L 12/29/22 10:16 FiO2 Intake & Output 12/28/22 12/29/22 12/29/22 18:59 06:59 18:59 Weight 102.058 kg Other: Voiding Method Toilet Toilet Toilet # Voids 2 - Labs CBC & Chem 7: 12/29/22 05:21 12/29/22 05:21 Labs: Abnormal Lab Results - Last 24 Hours (Table) 12/28/22 12/28/22 12/28/22 Range/Units 12:07 12:07 12:07 WBC 12.3 H (3.8-10.6) k/uL MCHC (32.0-37.0) g/dL RDW 17.0 H (11.5-15.5) % Absolute Nucleated RBC (0.00-0.00) X 10*3/uL Immature Gran # (0.00-0.04) X 10*3/uL Neutrophils # 9.2 H (1.3-7.7) k/uL NRBC/100 WBC Diff (0.0-0.0) /100 WBCS D-Dimer (<0.60) mg/L FEU Sodium 133 L (137-145) mmol/L BUN 22 H (7-17) mg/dL BUN/Creatinine Ratio (12.00-20.00) Ratio Glucose (70-110) mg/dL Plasma Lactic Acid Jermain 2.4 H* (0.7-2.0) mmol/L Calcium 8.3 L (8.4-10.2) mg/dL ALT 42 H (4-34) U/L Total Protein 5.9 L (6.3-8.2) g/dL Ur Specific [place] (1.001-1.035) Ur Leukocyte Esterase (Negative) Urine Mucus (None) /hpf 12/28/22 12/28/22 12/28/22 Range/Units 12:07 14:40 15:32 WBC (3.8-10.6) k/uL MCHC (32.0-37.0) g/dL RDW (11.5-15.5) % Absolute Nucleated RBC (0.00-0.00) X 10*3/uL Immature Gran # (0.00-0.04) X 10*3/uL Neutrophils # (1.3-7.7) k/uL NRBC/100 WBC Diff (0.0-0.0) /100 WBCS D-Dimer 1.17 H (<0.60) mg/L FEU Sodium (137-145) mmol/L BUN (7-17) mg/dL BUN/Creatinine Ratio (12.00-20.00) Ratio Glucose (70-110) mg/dL Plasma Lactic Acid Jerm[place] 2.7 H* (0.7-2.0) mmol/L Calcium (8.4-10.2) mg/dL ALT (4-34) U/L Total Protein (6.3-8.2) g/dL Ur Specific [place] 1.039 H (1.001-1.035) Ur Leukocyte Esterase Trace H (Negative) Urine Mucus Rare H (None) /hpf 12/28/22 12/28/22 12/29/22 Range/Units 20:17 23:54 05:21 WBC 10.98 H (3.8-10.6) k/uL MCHC 31.8 L (32.0-37.0) g/dL RDW 17.1 H (11.5-15.5) % Absolute Nucleated RBC 0.02 H (0.00-0.00) X 10*3/uL Immature Gran # 0.49 H (0.00-0.04) X 10*3/uL Neutrophils # 8.46 H (1.3-7.7) k/uL NRBC/100 WBC Diff 0.2 H (0.0-0.0) /100 WBCS D-Dimer (<0.60) mg/L FEU Sodium (137-145) mmol/L BUN (7-17) mg/dL BUN/Creatinine Ratio (12.00-20.00) Ratio Glucose (70-110) mg/dL Plasma Lactic Acid [place]erm[place] 5.5 H* 2.4 H* (0.7-2.0) mmol/L Calcium (8.4-10.2) mg/dL ALT (4-34) U/L Total Protein (6.3-8.2) g/dL Ur Specific [place] (1.001-1.035) Ur Leukocyte Esterase (Negative) Urine Mucus (None) /hpf 12/29/22 12/29/22 Range/Units 05:21 07:00 WBC (3.8-10.6) k/uL MCHC (32.0-37.0) g/dL RDW (11.5-15.5) % Absolute Nucleated RBC (0.00-0.00) X 10*3/uL Immature Gran # (0.00-0.04) X 10*3/uL Neutrophils # (1.3-7.7) k/uL NRBC/100 WBC Diff (0.0-0.0) /100 WBCS D-Dimer (<0.60) mg/L FEU Sodium (137-145) mmol/L BUN (7-17) mg/dL BUN/Creatinine Ratio 26.80 H (12.00-20.00) Ratio Glucose 116 H (70-110) mg/dL Plasma Lactic Acid [place]erm[place] 3.3 H* (0.7-2.0) mmol/L Calcium (8.4-10.2) mg/dL ALT (4-34) U/L Total Protein (6.3-8.2) g/dL Ur Specific [place] (1.001-1.035) Ur Leukocyte Esterase (Negative) Urine Mucus (None) /hpf
--- NOTE | 2022-12-29 15:20 | P.CNNES ---
History of Present Illness Consult date: 12/29/22 Requesting physician: Phyllis Reilly Reason for Consult: breakthrough seizure, hx of glioblastoma History of Present Illness: Patient is a 27-year-old female with history of glioblastoma, seizure disorder, came to the hospital by ambulance yesterday at 11:31 AM for breakthrough seizure. As per EMS flow sheet, when they arrived, patient woke up on the floor unable to recall how she got there. Patient states that she has been struggling with new recurrent seizures for the last few months, related to her brain cance r. Patient was incontinent to bowel. Patient's vitals at the scene was blood pressure 128/93, pulse rate 82 respirations 18 saturation 99% blood sugar 143. Patient had a seizure in the ER. Patient is currently on a trial medication for her GBM. Patient states trial medication is [id number]. 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 As per records from the ED, patient had 2 seizures prior to arrival. She was seizure-free for past couple months, but in the past 3 weeks seizures have reappeared. According to the ED report, patient's last MRI performed a month ago showed return of tumor. ED staff discussed with patient's family about transfer to [facility], but the family declined. She is considered not a candidate for resection. They requested for patient to stay here. Patient's EKG shows normal sinus rhythm. CT of the chest negative for any pulmonary embolism. Facial CT shows no acute osseous abnormalities facial bones. Computed tomography scan of the head showed encephalomalacia left cerebellar hemisphere without change compared to the old exam. Cerebral atrophy. CT of the cervical spine negative. Patient's blood test shows WBC 12.3 hemoglobin 13.2, platelets 198. D-dimer 1.17. Sodium 133 potassium 3.9, normal renal functions. Normal hepatic panel with ALT mildly elevated 42. UA is negative. Lactate is 2.4. Patient currently takes Lexapro 10 mg, [place] 10 mg, acyclovir 400 mg twice a day, dexamethasone 4 mg 3 times a day, Keppra 1000 mg twice a day, lorazepam, Fioricet, multivitamins. MRI of the brain with and without contrast from 09/04/2022 at [facility] revealed postsurgical changes involving the left posterior fossa with nodular enhancement along the left cerebellar resection cavity, concerning for recurrent disease. There is a more peripherally enhancing component extending along the left middle cerebellar peduncle and into the medulla with associated restricted diffusion, but slightly also relates to recurrent disease, however component of infarct is not excluded. Additionally, there are multiple small foci of enhancement along the cerebellar folia, the largest focus in the cerebellar vermis superiorly measures up to 7 mm. Findings are concerning for additional sites of disease. Leptomeningeal enhancement greatest along the bilateral frontal and parietal sulci near the vertex, concerning for leptomen ingeal spread of disease. Patient was diagnosed with glioblastoma multiforme on 03/04/2019, underwent total resection on 03/11/2019, followed by [facility] for a few months. In June 2019 she underwent proton radiotherapy. She had clear scans for a while. Patient had a recurrence in December 2019 or 2020, there was recurrence of the disease for which she underwent gamma knife treatment. She has been on dexamethasone off and on. She has developed loss of hearing on the left side. She has developed left facial and tongue numbness and she often bites her inside of her cheek on the left side of the tongue bite eating on the left side. She has to chew on the right side. Patient started having some syncopal spells since when she passed out and was shaking. Her side of the face felt twisted. About one week after , while she was at the [employer], she got dizzy and had to sit down. Friday before , she was talking slow, did not know anything, was repeating "November". When she tried to talk, she was making no sense. 10 minutes later, she was perfectly fine, able to converse normally. She underwent CT, MRI and lumbar puncture at [facility] and they saw two new spots. Patient had an episode on 09/03/2022 while she was watching [place], she had 2- 3 spells, in which she developed numbness of right side, that lasted for 4-5 minutes. She had another spell while she was at the [employer] in which she passed out, and has some shaking, but did not lose control of urine. Patient follows up with Dr. Herve Abad neurosurgeon, and Dr. Michael her oncologist. Patient follows up with Dr. Ty neuro oncologist at [facility]. Patient's last appointment was on 12/11/2022, an MRI was done on 12/12/2022. Patient has her next appointment with Dr. Ty on 01/20/2023, tele visit. Patient had an EEG on 09/09/2022, which was normal. No epileptiform activity was seen. Patient had a prolonged EEG on 09/10/2022, which was abnormal. No clinical or electrographic seizures were recorded. The sharp waves seen over the left frontotemporal region, frontal more than temporal are epileptiform in nature. The focal theta and delta range slowing seen over the same region is not epileptiform in nature. These findings indicate the presence of an epileptiform focus involving the left frontotemporal region, frontal more than temporal. These findings also indicate moderate focal cerebral dysfunction involving the left frontal greater than left temporal region. These findings can be seen with the presence of a structural abnormality of epileptiform origin involving the corresponding region. Patient states that she uses walker at home, uses wheelchair in public. Her memory is good although short-term memory can be affected from the steroids. She lives by herself and her dog. Past Medical History Past Medical History: Cancer, Hypertension, Seizure Disorder Additional Past Medical History / Comment(s): .brain cancer-Glioblastoma, seizures r/t brain cancer History of Any Multi-Drug Resistant Organisms: None Reported Past Surgical History: No Surgical Hx Reported Additional Past Surgical History / Comment(s): craniotomy 2019 Past Anesthesia/Blood Transfusion Reactions: No Reported Reaction Past Psychological History: Depression Smoking Status: Never smoker Past Alcohol Use History: None Reported Past Drug Use History: None Reported Medications and Allergies Home Medications Medication Instructions Recorded Confirmed Type Escitalopram [Lexapro] 10 mg PO DAILY 07/30/22 12/28/22 History HYDROcodone/APAP 10-325MG [[place] 1 tab PO Q6H PRN 09/08/22 12/28/22 History 10-325] Acyclovir [Zovirax] 400 mg PO BID 11/04/22 12/28/22 History dexAMETHasone [Decadron] 4 mg PO TID 11/04/22 12/28/22 History Acetaminophen Tab [Tylenol] 650 mg PO Q4H PRN 12/28/22 12/28/22 History Butalb/APAP/Caff 50-325-40Mg 1 tab PO Q4H PRN 12/28/22 12/28/22 History [Fioricet 50325-40] LORazepam [Ativan] 0.5 mg PO DAILY PRN 12/28/22 12/28/22 History Multivitamins, Thera [Multivitamin 1 tab PO DAILY 12/28/22 12/28/22 History (formulary)] levETIRAcetam [Keppra] 1,000 mg PO BID 12/28/22 12/28/22 History ondansetron HCL [Zofran] 8 mg PO Q6H PRN 12/28/22 12/28/22 History Allergies Allergy/AdvReac Type Severity Reaction Status Date / Time cephalexin AdvReac Nausea & Verified 12/28/22 15:22 Vomiting & Diarrhea Physical Examination - Vital Signs Vital Signs: Vital Signs Temp Pulse Pulse Resp BP BP Pulse Ox 12/29/22 10:16 93 L 12/29/22 07:00 97.9 F 82 18 129/84 94 L 12/29/22 02:00 97.5 F L 79 16 131/77 97 12/28/22 19:46 98.1 F 93 18 118/85 96 12/28/22 17:31 97.8 F 79 18 131/83 95 12/28/22 16:00 97.9 F 16 120/73 97 12/28/22 15:30 74 14 122/89 12/28/22 15:00 79 15 120/88 97 12/28/22 14:30 87 18 108/87 97 12/28/22 14:00 80 12 132/102 99 12/28/22 13:38 98.1 F 12/28/22 13:30 79 15 98 12/28/22 13:00 131/94 12/28/22 12:30 81 13 129/86 94 L Intake and Output 12/28/22 12/29/22 12/29/22 22:59 06:59 14:59 Other: Voiding Method Toilet Toilet Toilet # Voids 1 2 Weight 102.058 kg Patient is a young female, who is fully alert and awake. Patient is in no distress. Patient is oriented to time place and person. She knows it is December 2022 and that she is in [facility]. Speech and language functions are normal. Patient can name and repeat very well. No aphasia or dysarthria. Attention, concentration and fund of knowledge is adequate. On cranial nerve examination, pupils are equal, round and reacting to light, visual concepcion are full on confrontation, with no neglect on double simultaneous stimulation. Patient has left lateral rectus weakness. Patient has prominent nystagmus bilaterally right much more than left. Patient has slight right facial weakness. Her tongue protrudes to the left. Palatal elevation and s ensation normal, hearing is decreased on the left and shoulder shrug normal, facial sensation decreased on the left. On muscle strength testing, there is no pronator drift, although the left arm tremors when it is outstretched. Her strength is normal in arms and legs distally and proximally. Deep tendon reflexes are symmetric biceps 2+, brachioradialis 1+, knees 3+, ankles 3+ and plantars are withdrawal bilaterally. Sensory to touch is equal with no neglect on double simultaneous stimulation. Cerebellar function showed significant ataxia for [id number]-[id number] and jopf-mg-guir testing only on the left side. No ataxia in the right side. Tone and bulk of muscles normal. Gait deferred.. On general examination, there is no carotid bruit or murmur, S1-S2 audible. Chest is clear on consultation. Abdomen is soft nontender. No organomegaly, bowel sounds present. Peripheral pulses are present. No edema. Results - Laboratory Findings CBC and BMP: 12/29/22 05:21 12/29/22 05:21 Abnormal Lab Findings: Abnormal Labs 12/28/22 12/28/22 12/28/22 12:07 12:07 12:07 WBC 12.3 H MCHC RDW 17.0 H Absolute Nucleated RBC Immature Gran # Neutrophils # 9.2 H NRBC/100 WBC Diff D-Dimer Sodium 133 L BUN 22 H BUN/Creatinine Ratio Glucose Plasma Lactic Acid Jermain 2.4 H* Calcium 8.3 L ALT 42 H Total Protein 5.9 L Ur Specific Yoder Ur Leukocyte Esterase Urine Mucus 12/28/22 12/28/22 12/28/22 12:07 14:40 15:32 WBC MCHC RDW Absolute Nucleated RBC Immature Gran # Neutrophils # NRBC/100 WBC Diff D-Dimer 1.17 H Sodium BUN BUN/Creatinine Ratio Glucose Plasma Lactic Acid Jermain 2.7 H* Calcium ALT Total Protein Ur Specific Yoder 1.039 H Ur Leukocyte Esterase Trace H Urine Mucus Rare H 12/28/22 12/28/22 12/29/22 20:17 23:54 05:21 WBC 10.98 H MCHC 31.8 L RDW 17.1 H Absolute Nucleated RBC 0.02 H Immature Gran # 0.49 H Neutrophils # 8.46 H NRBC/100 WBC Diff 0.2 H D-Dimer Sodium BUN BUN/Creatinine Ratio Glucose Plasma Lactic Acid Jermain 5.5 H* 2.4 H* Calcium ALT Total Protein Ur Specific Yoder Ur Leukocyte Esterase Urine Mucus 12/29/22 12/29/22 12/29/22 05:21 07:00 11:01 WBC MCHC RDW Absolute Nucleated RBC Immature Gran # Neutrophils # NRBC/100 WBC Diff D-Dimer Sodium BUN BUN/Creatinine Ratio 26.80 H Glucose 116 H Plasma Lactic Acid Jermain 3.3 H* 2.3 H* Calcium ALT Total Protein Ur Specific Yoder Ur Leukocyte Esterase Urine Mucus Assessment and Plan Assessment: * Seizure disorder, came with breakthrough seizure. * Glioblastoma multiform, status post surgery, radiation and chemotherapy. Possible recent progression of tumor. 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 We will increase dose to 1500 mg twice a day. * If remains seizure free overnight, patient can be discharged from neurological standpoint, to follow-up with her neuro-oncologist. * Patient has an appointment with her neuro-oncologist Dr. Ty at [facility] on 01/20/2023. Suggested patient discussed with her neurologist about next line of action, in case if she has any more breakthrough seizures, as she is already on the maximal dose. She has gained weight from steroids. I would suspect Topamax or Zonegran would be a good choice. She will discuss with her neuro-oncologist. * Dr. Sal Centeno Will resume neurology service in the morning. Thank you for the consult.
--- NOTE | 2022-12-29 16:57 | P.CONS ---
History of Present Illness - Reason for Consult Consult date: 12/29/22 Glioblastoma multiforme - Chief Complaint Seizure - History of Present Illness Ms. Zaragoza is a 27-year-old woman with a past medical history to be in for glioblastoma multiforme initially resected on 03/10/2019 status post adjuvant temozolomide/radiation therapy and found to have recurrence in August 2022 currently set to undergo treatment with [id number] through the [facility] on compassionate use who presents for episode of breakthrough seizure. She did previously have seizures when she was noted to have recurrence in August 2022 and had been stable on antiepileptic treatment until the past 2 to 3 weeks, when she had an additional seizure and was treated at [facility]. She notes the most recent episode yesterday early afternoon when she began to have dizziness and increased weakness. She notes waking up on the floor and having had episode of stool and urine incontinence. She called her ex-, who was able to bring her to the ED for additional management. In the ED, she was given a total of 2500 mg of Keppra IV along with 2 mg IV of Ativan. Chest x-ray reveals no acute infectious process. CT angio revealed no evidence of PE. CT of the spine revealed no acute changes. CT of the face revealed no acute changes. CBC noted WBC 12.3 (ANC 9.2), hemoglobin 13.2, platelets 198. She was admitted to internal medicine with neurology on consult. Currently, she notes feeling well with no further seizures since admission. She has not yet started [id number], but notes receiving it in the mail yesterday and does have this medication at home. She will be following at the [facility] for blood work as well as MRI of the brain every 1 to 2 months. Review of Systems 14 point review systems conducted with pertinent positives and negatives as noted per HPI Past Medical History Past Medical History: Cancer, Hypertension, Seizure Disorder Additional Past Medical History / Comment(s): .brain cancer-Glioblastoma, seizures r/t brain cancer History of Any Multi-Drug Resistant Organisms: None Reported Past Surgical History: No Surgical Hx Reported Additional Past Surgical History / Comment(s): craniotomy 2019 Past Anesthesia/Blood Transfusion Reactions: No Reported Reaction Past Psychological History: Depression Smoking Status: Never smoker Past Alcohol Use History: None Reported Past Drug Use History: None Reported Medications and Allergies Home Medications Medication Instructions Recorded Confirmed Type Escitalopram [Lexapro] 10 mg PO DAILY 10/25/22 03/25/23 History HYDROcodone/APAP 10-325MG [[place] 1 tab PO Q6H PRN 09/08/22 12/28/22 History 10-325] Acyclovir [Zovirax] 400 mg PO BID 11/04/22 12/28/22 History dexAMETHasone [Decadron] 4 mg PO TID 11/04/22 12/28/22 History Acetaminophen Tab [Tylenol] 650 mg PO Q4H PRN 12/28/22 12/28/22 History Butalb/APAP/Caff 50-325-40Mg 1 tab PO Q4H PRN 12/28/22 12/28/22 History [Fioricet 50-325-40] LORazepam [Ativan] 0.5 mg PO DAILY PRN 12/28/22 12/28/22 History Multivitamins, Thera [Multivitamin 1 tab PO DAILY 12/28/22 12/28/22 History (formulary)] levETIRAcetam [Keppra] 1,000 mg PO BID 12/28/22 12/28/22 History ondansetron HCL [Zofran] 8 mg PO Q6H PRN 12/28/22 12/28/22 History Allergies Allergy/AdvReac Type Severity Reaction Status Date / Time cephalexin AdvReac Nausea & Verified 12/28/22 15:22 Vomiting & Diarrhea Physical Exam Vitals: Vital Signs Temp Pulse Resp BP Pulse Ox 12/29/22 14:13 97.8 F 82 16 111/74 94 L 12/29/22 10:16 93 L 12/29/22 07:00 97.9 F 82 18 129/84 94 L 12/29/22 02:00 97.5 F L 79 16 131/77 97 12/28/22 19:46 98.1 F 93 18 118/85 96 12/28/22 17:31 97.8 F 79 18 131/83 95 Intake and Output 12/29/22 12/29/22 12/29/22 06:59 14:59 22:59 Intake Total 120 Balance 120 Intake: Oral 120 Other: Voiding Method Toilet Toilet # Voids 2 2 - 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 No dysarthria or facial droop noted Results CBC & Chem 7: 12/29/22 05:21 12/29/22 05:21 Labs: Abnormal Lab Results - Last 24 Hours (Table) 12/28/22 12/28/22 12/28/22 Range/Units 15:32 20:17 23:54 WBC (4.50-10.00) X 10*3/uL MCHC (32.0-37.0) g/dL RDW (11.5-14.5) % Absolute Nucleated RBC (0.00-0.00) X 10*3/uL Immature Gran # (0.00-0.04) X 10*3/uL Neutrophils # (1.80-7.70) X 10*3/uL NRBC/100 WBC Diff (0.0-0.0) /100 WBCS BUN/Creatinine Ratio (12.00-20.00) Ratio Glucose (70-110) mg/dL Plasma Lactic Acid Jermain 2.7 H* 5.5 H* 2.4 H* (0.7-2.0) mmol/L 12/29/22 12/29/22 12/29/22 Range/Units 05:21 05:21 07:00 WBC 10.98 H (4.50-10.00) X 10*3/uL MCHC 31.8 L (32.0-37.0) g/dL RDW 17.1 H (11.5-14.5) % Absolute Nucleated RBC 0.02 H (0.00-0.00) X 10*3/uL Immature Gran # 0.49 H (0.00-0.04) X 10*3/uL Neutrophils # 8.46 H (1.80-7.70) X 10*3/uL NRBC/100 WBC Diff 0.2 H (0.0-0.0) /100 WBCS BUN/Creatinine Ratio 26.80 H (12.00-20.00) Ratio Glucose 116 H (70-110) mg/dL Plasma Lactic Acid Jermain 3.3 H* (0.7-2.0) mmol/L 12/29/22 12/29/22 Range/Units 11:01 14:31 WBC (4.50-10.00) X 10*3/uL MCHC (32.0-37.0) g/dL RDW (11.5-14.5) % Absolute Nucleated RBC (0.00-0.00) X 10*3/uL Immature Gran # (0.00-0.04) X 10*3/uL Neutrophils # (1.80-7.70) X 10*3/uL NRBC/100 WBC Diff (0.0-0.0) /100 WBCS BUN/Creatinine Ratio (12.00-20.00) Ratio Glucose (70-110) mg/dL Plasma Lactic Acid Jermain 2.3 H* 6.2 H* (0.7-2.0) mmol/L Assessment and Plan (1) Breakthrough seizure Current Visit: Yes Status: Acute Code(s): G40.919 - EPILEPSY, UNSP, INTRACTABLE, WITHOUT STATUS EPILEPTICUS SNOMED Code(s): 325869263 (2) GBM (glioblastoma multiforme) Current Visit: Yes Status: Chronic Priority: High Code(s): C71.9 - MALIGNANT NEOPLASM OF BRAIN, UNSPECIFIED SNOMED Code(s): 553159168 Plan: Breakthrough seizure -Noted to have seizures on evidence of recurrence of GBM August 2022 -Had been stable on antiepileptic medication until the past 2 weeks, when she had a breakthrough seizure -Most recent episode of seizure prior to admission on 12/28/2022 -She received a total of Ativan 2 mg IV followed by 25 mg IV Keppra loading dose -She is currently on Keppra 1500 mg IV every 12 hours -Defer to neurology for management of seizure Glioblastoma Multiforme -Underwent craniotomy with resection on 03/10/2019 followed by adjuvant temozolomide and radiation therapy -Found to have recurrence in August 2022 -She has been evaluated at [facility] and [facility] and underwent 1 cycle of Avastin on 11/04/2022 due to concern to inflammation from radiation necrosis -She is currently following at the [facility] with plan to start [id number], which she did receive and was planning to start yesterday prior to seizure -She should start this medication once discharged -If she does have prolonged hospitalization, this medication can be brought by the and started inpatient -Continue dexamethasone 4 mg 3 times daily
[2022-12-30 04:41] VITALS: RESP 16
[2022-12-30] MEDS: levETIRAcetam IV 1,500 MG in SALINE 1 100ML.BAG IVPB SCH (08:18)
[2022-12-30] MEDS: dexAMETHasone 4 MG TAB PO SCH ×2 (08:19→08:27)
[2022-12-30] MEDS: ACYCLOVIR 200 MG CAP PO SCH (08:19)
[2022-12-30] MEDS: MULTIVITAMINS, THERA 1 EACH TAB PO SCH (08:19)
[2022-12-30] MEDS: ESCITALOPRAM 10 MG TAB PO SCH (08:19)
[2022-12-30] MEDS: ENOXAPARIN 40 MG/0.4 ML SYRINGE SQ SCH ×2 (08:20→08:21)
[2022-12-30 08:44] VITALS: BP 134/96; PULSE 74; TEMP 97.5
[2022-12-30 09:28] LABS: African American GFR (CKD) 143.8 (60.0-200.0); Anion Gap 15.3 mmol/L (10.00-18.00); BUN/Creat Ratio 23.33 Ratio (12.00-20.00); Calcium 9.4 mg/dL (8.7-10.3); Carbon Dioxide 22.7 mmol/L (20.0-27.5); Potassium 4.4 mmol/L (3.5-5.5)
[2022-12-30 10:45] LABS: Basophils # (A) 0.06 X 10*3/uL (0.00-0.10); Basophils % (A) 0.5 %; Eosinophils # (A) 0 X 10*3/uL (0.04-0.35); Eosinophils % (A) 0 %; HCT 41.2 % (37.2-46.3); HGB 13.4 g/dL (12.0-15.0); Immature Grans, Automated 4.3 %; Lymphocytes # (A) 1.29 X 10*3/uL (0.90-5.00); Lymphocytes % (A) 10.3 %; MCHC 32.5 g/dL (32.0-37.0); MCV 92.4 fL (80.0-97.0); Mean Platelet Volume 9.9 fL (9.5-12.2); Monocytes # (A) 0.65 X 10*3/uL (0.20-1.00); Monocytes % (A) 5.2 %; NRBC Per 100 WBC 0.2 /100 WBCS (0.0-0.0); Neutrophils % (A) 79.7 %; Platelet Count 200 X 10*3/uL (140-440); RBC 4.46 X 10*6/uL (4.10-5.20); RDW 16.8 % (11.5-14.5); WBC 12.54 X 10*3/uL (4.50-10.00)
--- NOTE | 2022-12-30 10:58 | P.PN ---
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 She follows-up with neurologist over [facility]. She has been seizure free in our facility so far. Objective - Vital Signs Vital signs: Vital Signs Temp 97.5 F L 12/30/22 07:00 Pulse 74 12/30/22 07:00 Resp 16 12/30/22 07:00 BP 134/96 12/30/22 07:00 Pulse Ox 94 L 12/30/22 07:45 FiO2 21 12/30/22 07:45 Intake & Output 12/29/22 12/30/22 12/30/22 18:59 06:59 18:59 Intake Total 240 118 Balance 240 118 Intake: Oral 240 118 Other: Voiding Method Toilet Toilet # Voids 2 1 - Exam GENERAL: The patient is lying in bed and is not in acute distress. NEUROLOGICAL: Higher mental function: The patient is awake, alert, oriented to self, place and time. Patient is following commands. No aphasia and no neglect. Cranial nerves: The pupils are round, equal and reactive to light. Has left lateral rectus weakness. Nystagmus looking right > left. Decrease facial senstation on left. Subtle right facial weakness. Tongue is midline and moved [id number] without any difficulty. No dysarthria is noted. Shoulder shrug is normal bilaterally. Motor: The strength is left upper extremity is 4+ (old). Otherwise 5 over 5 th roughout. Normal tone and bulk. Sensation: Sensation is normal to touch throughout. - Labs CBC & Chem 7: 12/30/22 03:42 12/30/22 03:42 Labs: Abnormal Lab Results - Last 24 Hours (Table) 12/29/22 12/29/22 12/29/22 Range/Units 11:01 14:31 18:34 WBC (4.50-10.00) X 10*3/uL RDW (11.5-14.5) % Absolute Nucleated RBC (0.00-0.00) X 10*3/uL Immature Gran # (0.00-0.04) X 10*3/uL Neutrophils # (1.80-7.70) X 10*3/uL Eosinophils # (0.04-0.35) X 10*3/uL NRBC/100 WBC Diff (0.0-0.0) /100 WBCS BUN/Creatinine Ratio (12.00-20.00) Ratio Glucose (70-110) mg/dL Plasma Lactic Acid Jermain 2.3 H* 6.2 H* 4.2 H* (0.7-2.0) mmol/L 12/29/22 12/30/22 12/30/22 Range/Units 23:40 03:42 03:42 WBC 12.54 H (4.50-10.00) X 10*3/uL RDW 16.8 H (11.5-14.5) % Absolute Nucleated RBC 0.02 H (0.00-0.00) X 10*3/uL Immature Gran # 0.54 H (0.00-0.04) X 10*3/uL Neutrophils # 10.00 H (1.80-7.70) X 10*3/uL Eosinophils # 0 L (0.04-0.35) X 10*3/uL NRBC/100 WBC Diff 0.2 H (0.0-0.0) /100 WBCS BUN/Creatinine Ratio 23.33 H (12.00-20.00) Ratio Glucose 120 H (70-110) mg/dL Plasma Lactic Acid Jermain 2.3 H* (0.7-2.0) mmol/L 12/30/22 Range/Units 03:42 WBC (4.50-10.00) X 10*3/uL RDW (11.5-14.5) % Absolute Nucleated RBC (0.00-0.00) X 10*3/uL Immature Gran # (0.00-0.04) X 10*3/uL Neutrophils # (1.80-7.70) X 10*3/uL Eosinophils # (0.04-0.35) X 10*3/uL NRBC/100 WBC Diff (0.0-0.0) /100 WBCS BUN/Creatinine Ratio (12.00-20.00) Ratio Glucose (70-110) mg/dL Plasma Lactic Acid Jermain 2.7 H* (0.7-2.0) mmol/L Assessment and Plan Assessment: * Break-thru seizure * Hx of seizure * History of Diffuse Midline Glioma status post surgery, radiation and chemotherapy. Possible recent progression of tumor. * Multiple cranial nerve palsy is, likely due to above Plan: * Patient's Keppra was increased from 1 g twice a day to 1500 twice a day during this admission. * Patient has an appointment with her neuro-oncologist Dr. Ty at [facility] on 01/20/2023. Per Dr. Pina, Patient to discuss with her neurologist about next line of action, in case if she has any more breakthro ugh seizures, as she is already on the maximal dose. She has gained weight from steroids. I would suspect Topamax or Zonegran would be a good choice. She will discuss with her neuro-oncologist. * Per [place] DMV, patient to avoid driving for 6 months until no further seizure, avoid height, using heavy machinery or swim unassisted. * Otherwise patient is clear for discharge from neurological perspective The plan is discussed with the patient and her nurse. Time with Patient: Less than 30
--- NOTE | 2022-12-30 11:29 | P.DS ---
Providers Date of admission: 12/28/22 15:18 Expected date of discharge: 12/30/22 Attending physician: Thomas Graham MD Consults: 12/28/22 14:56 Consult Physician Routine Consulting Provider: Wesley Pina Consult Reason/Comments: breakthrough seizure, hx of glioblastoma Do you want consulting provider notified?: Yes 12/28/22 15:31 Consult Physician Routine Consulting Provider: Camron Coronel Consult Reason/Comments: glioblastoma, in clinical trial Do you want consulting provider notified?: Yes Primary care physician: [facility] Course: 27-year-old female with history of glioblastoma status post resection and gamma knife radiation, now with a recurrence, seizure history, presenting with breakthrough seizures. In the ED, on arrival she was afebrile, pulse at 83, respiratory rate is 16, blood pressure 124/83, saturating at 98% on room air. Laboratory workup was significant for WBC of 12.3, d-dimer 1.17, sodium 133, BUN 22, creatinine 0.53, lactic acid 2.4, ALT 42. X-ray showed normal sinus rhythm. Chest x-ray showed no acute process. Chest CTA showed no PE. Brain CT showed encephalomalacia of left cerebellar hemisphere without changes compared to old exam, no acute intracranial abnormality. Face CT showed no acute process. Neurology consulted and recommend EEG. Her Keppra dose was increased to 1500 mg by mouth twice a day. She had no further seizure episodes during her hospitalization. Patient refused EEG. Neurology cleared the patient for discharge. Patient was seen and examined this morning. Patient reports feeling at baseline and is requesting to be discharged home. She denies any chest pain, shortness breath or palpitations. No nausea or vomiting. No fever or chills. Patient advised not to operate heavy machinery or drive for the next 6 months. She will need to be cleared by her neurologist prior to doing so. She is advised to follow-up with her neurologist and other specialists at [facility] within 1 week of discharge. Patient verbalized understanding of the plan. Pertinent studies include chest x-ray, chest CTA, head CT, C-spine CT, face CT. General: nontoxic, no distress, appears at stated age, morbidly obese Derm: warm, dry Head: atraumatic, normocephalic, symmetric Eyes: EOMI, no lid lag, anicteric sclera Mouth: no lip lesion, mucus membranes moist Cardiovascular: S1S2 reg, no murmur Lungs: CTA bilateral, no rhonchi, no rales , no accessory muscle use Ext: no gross muscle atrophy, no edema, no contractures, left-sided weakness, chronic Neuro: no focal neuro deficits Psych: Alert, oriented, appropriate affect Discharge Diagnosis: Breakthrough seizures History of seizures History of glioblastoma status post resection and Surgery, now with recurrence Leukocytosis, reactive Elevated d-dimer Lactic acidosis This complex discharge took 35 minutes to complete. Patient Condition at Discharge: Stable Plan - Discharge Summary Discharge Rx Participant: No New Discharge Prescriptions: New levETIRAcetam [Keppra] 1,500 mg PO Q12HR #120 tab Continue Escitalopram [Lexapro] 10 mg PO DAILY HYDROcodone/APAP 10-325MG [[place] 10-325] 1 tab PO Q6H PRN PRN Reason: Pain LORazepam [Ativan] 0.5 mg PO DAILY PRN PRN Reason: Anxiety Butalb/APAP/Caff 50-325-40Mg [Fioricet 50-325-40] 1 tab PO Q4H PRN PRN Reason: Migraine Headache Acetaminophen Tab [Tylenol] 650 mg PO Q4H PRN PRN Reason: Pain Acyclovir [Zovirax] 400 mg PO BID dexAMETHasone [Decadron] 4 mg PO TID ondansetron HCL [Zofran] 8 mg PO Q6H PRN PRN Reason: Nausea And Vomiting Multivitamins, Thera [Multivitamin (formulary)] 1 tab PO DAILY Discontinued levETIRAcetam [Keppra] 1,000 mg PO BID Discharge Medication List Escitalopram [Lexapro] 10 mg PO DAILY 07/30/22 [History] HYDROcodone/APAP 10-325MG [[place] 10-325] 1 tab PO Q6H PRN 09/08/22 [History] Acyclovir [Zovirax] 400 mg PO BID 11/04/22 [History] dexAMETHasone [Decadron] 4 mg PO TID 11/04/22 [History] Acetaminophen Tab [Tylenol] 650 mg PO Q4H PRN 12/28/22 [History] Butalb/APAP/Caff 50-325-40Mg [Fioricet 50-325-40] 1 tab PO Q4H PRN 12/28/22 [History] LORazepam [Ativan] 0.5 mg PO DAILY PRN 12/28/22 [History] Multivitamins, Thera [Multivitamin (formulary)] 1 tab PO DAILY 12/28/22 [History] ondansetron HCL [Zofran] 8 mg PO Q6H PRN 12/28/22 [History] levETIRAcetam [Keppra] 1,500 mg PO Q12HR #120 tab 12/30/22 [Rx] Follow up Appointment(s)/Referral(s): Jose Alejandro Segal MD [Primary Care Provider] - 1-2 days Patient Instructions/Handouts: Seizure/Epilepsy Discharge Instructions & Follow-Up Activity/Diet/Wound Care/Special Instructions: As per [place] law, please do not drive or operate heavy machinery for the next 6 months. Take all medications as advised. Follow up with your doctors and [facility] within 1 week of discharge. Discharge Disposition: HOME SELF-CARE
--- NOTE | 2022-12-30 13:45 | P.PN ---
Subjective Progress Note Date: 12/30/22 Principal diagnosis: seizure, hx of glioblastoma At today's visit patient is resting comfortably in bed. She reports feeling well. Denies any seizures overnight or today. She declined EEG today and prefers to follow-up with her neurologist outpatient. No other reported comp laints at this time Objective - Vital Signs Vital signs: Vital Signs Temp 97.5 F L 12/30/22 07:00 Pulse 74 12/30/22 07:00 Resp 16 12/30/22 07:00 BP 134/96 12/30/22 07:00 Pulse Ox 94 L 12/30/22 07:45 FiO2 21 12/30/22 07:45 Intake & Output 12/29/22 12/30/22 12/30/22 18:59 06:59 18:59 Intake Total 240 118 Balance 240 118 Intake: Oral 240 118 Other: Voiding Method Toilet Toilet # Voids 2 1 - Constitutional General appearance: Present: no acute distress, obese - EENT Eyes: Present: anicteric sclerae, EOMI ENT: Present: hearing grossly normal - Respiratory Details: breathing is even and unlabored - Cardiovascular Details: skin warm and dry - Integumentary Integumentary: Present: normal - Neurologic Neurologic Comment(s): grossly intact - Musculoskeletal Musculoskeletal: Present: strength equal bilaterally - Psychiatric Psychiatric: Present: A&O x's 3, appropriate affect, intact judgment & insight - Labs CBC & Chem 7: 12/30/22 03:42 12/30/22 03:42 Labs: Abnormal Lab Results - Last 24 Hours (Table) 12/29/22 12/29/22 12/29/22 Range/Units 14:31 18:34 23:40 WBC (4.50-10.00) X 10*3/uL RDW (11.5-14.5) % Absolute Nucleated RBC (0.00-0.00) X 10*3/uL Immature Gran # (0.00-0.04) X 10*3/uL Neutrophils # (1.80-7.70) X 10*3/uL Eosinophils # (0.04-0.35) X 10*3/uL NRBC/100 WBC Diff (0.0-0.0) /100 WBCS BUN/Creatinine Ratio (12.00-20.00) Ratio Glucose (70-110) mg/dL Plasma Lactic Acid Jermain 6.2 H* 4.2 H* 2.3 H* (0.7-2.0) mmol/L 12/30/22 12/30/22 12/30/22 Range/Units 03:42 03:42 03:42 WBC 12.54 H (4.50-10.00) X 10*3/uL RDW 16.8 H (11.5-14.5) % Absolute Nucleated RBC 0.02 H (0.00-0.00) X 10*3/uL Immature Gran # 0.54 H (0.00-0.04) X 10*3/uL Neutrophils # 10.00 H (1.80-7.70) X 10*3/uL Eosinophils # 0 L (0.04-0.35) X 10*3/uL NRBC/100 WBC Diff 0.2 H (0.0-0.0) /100 WBCS BUN/Creatinine Ratio 23.33 H (12.00-20.00) Ratio Glucose 120 H (70-110) mg/dL Plasma Lactic Acid Jermain 2.7 H* (0.7-2.0) mmol/L Assessment and Plan (1) Breakthrough seizure Current Visit: Yes Status: Acute Priority: High Code(s): G40.919 - EPILEPSY, UNSP, INTRACTABLE, WITHOUT STATUS EPILEPTICUS SNOMED Code(s): 148103887 (2) GBM (glioblastoma multiforme) Current Visit: Yes Status: Chronic Priority: High Code(s): C71.9 - MALIGNANT NEOPLASM OF BRAIN, UNSPECIFIED SNOMED Code(s): 502605199 Plan: Breakthrough seizure -Noted to have seizures on evidence of recurrence of GBM August 2022 -Had been stable on antiepileptic medication until the past 2 weeks, when she had a breakthrough seizure -Most recent episode of seizure prior to admission on 12/28/2022. Denies seizure activity yesterday or this morning -She received a total of Ativan 2 mg IV followed by 25 mg IV Keppra loading dose -She is currently on Keppra 1500 mg IV every 12 hours, but requested to start oral keppra today due to poor IV access -Declined EEG, wants to f/u with her neurologist outpatient -Defer to neurology for management of seizure Glioblastoma Multiforme -Underwent craniotomy with resection on 03/10/2019 followed by adjuvant temozolomide and radiation therapy -Found to have recurrence in August 2022 -She has been evaluated at [facility] and [facility] and underwent 1 cycle of Avastin on 11/04/2022 due to concern of inflammation from radiation necrosis -She is currently following at the [facility] with plan to start [id number], which she did receive and was planning to start prior to seizure -She should start this medication once discharged -If she does have prolonged hospitalization, this medication can be brought by the and started inpatient -Continue dexamethasone 4 mg 3 times daily -Encouraged f/u upon discharge with oncologist at [facility]. Will have pt f/u with Dr. Michael in approx 4-6 weeks -Pt verbalizes understanding and is agreeable with POC Patient is cleared from a hem/onc standpoint, once cleared by IM and other consulted medical specialties
== END 2022-12-30 13:44 | disposition home or self-care (01) ==
LOC: EC 11:31 → 6NMEDSUR 15:18
PROVIDERS: ADMIT Student in an Organized Health Care Education/Training Program; ATTEND Student in an Organized Health Care Education/Training Program
DX: G40.919 Epilepsy, unspecified, intractable, without status epilepticus (principal); C71.9 Malignant neoplasm of brain, unspecified; I10 Essential (primary) hypertension; F32.A Depression, unspecified; E87.1 Hypo-osmolality and hyponatremia; E66.01 Morbid (severe) obesity due to excess calories; R79.89 Other specified abnormal findings of blood chemistry; G52.7 Disorders of multiple cranial nerves; D72.829 Elevated white blood cell count, unspecified; G93.89 Other specified disorders of brain; Z79.899 Other long term (current) drug therapy; Z92.3 Personal history of irradiation; Z92.21 Personal history of antineoplastic chemotherapy; Z68.41 Body mass index [BMI] 40.0-44.9, adult
CPT/HCPCS: 96361 ×4; 96365 ×2; 96366 ×2; 96375; 99285; 36415; 94760 ×2; 93005; 85379; 80053; 80048 ×2; 80177; 83605 ×3; 83735; 85025 ×3; 81001; 71046; 72125; 70486; 70450; 71275; G0378 ×3; J8540 ×3; J2060; J1953 ×4; Q9967

== ENCOUNTER → 2023-01-21 | Outpatient (CLI) | payer MEDICARE ==
[2023-01-22 02:14] LABS: Amylase 92 U/L (23-121); LDH 480 U/L (120-246)
[2023-01-22 02:18] LABS: ALT 43 U/L (8-44); AST 21 U/L (13-35); African American GFR (CKD) 142.6 (60.0-200.0); Albumin/Globulin Ratio 1.82 (1.60-3.17); Alkaline Phosphatase 72 U/L (41-126); BUN/Creat Ratio 28.13 Ratio (12.00-20.00); Bilirubin, Conjugated <0.20 mg/dL (0.20-0.40); Blood Urea Nitrogen 17.3 mg/dL (9.0-27.0); Calcium 9.5 mg/dL (8.7-10.3); Carbon Dioxide 24.2 mmol/L (20.0-27.5); Chloride 104 mmol/L (96-109); Globulin 2.2 g/dL (1.6-3.3); Glucose 124 mg/dL (70-110); Potassium 4.3 mmol/L (3.5-5.5); Sodium 142 mmol/L (135-145); Total Bilirubin <0.15 mg/dL (0.30-1.20); Total Protein 6.2 g/dL (6.2-8.2); Uric Acid 3.8 mg/dL (2.9-7.7)
[2023-01-22 03:20] LABS: Basophils # (A) 0.02 X 10*3/uL (0.00-0.10); Basophils % (A) 0.3 %; Eosinophils # (A) 0.01 X 10*3/uL (0.04-0.35); Eosinophils % (A) 0.1 %; HCT 42.7 % (37.2-46.3); HGB 13.5 g/dL (12.0-15.0); Lymphocytes # (A) 1.09 X 10*3/uL (0.90-5.00); Lymphocytes % (A) 14.4 %; MCHC 31.6 g/dL (32.0-37.0); MCV 97.9 fL (80.0-97.0); Mean Platelet Volume 9.4 fL (9.5-12.2); Monocytes # (A) 0.35 X 10*3/uL (0.20-1.00); Monocytes % (A) 4.6 %; NRBC Per 100 WBC 0 /100 WBCS (0.0-0.0); Neutrophils # (A) 5.95 X 10*3/uL (1.80-7.70); Neutrophils % (A) 78.6 %; Platelet Count 205 X 10*3/uL (140-440); RBC 4.36 X 10*6/uL (4.10-5.20); RDW 15.9 % (11.5-14.5); WBC 7.57 X 10*3/uL (4.50-10.00)
[2023-01-22 03:21] LABS: RBC Morphology NORMAL
== END | disposition home or self-care (01) ==
LOC: LABWHC1 15:02
PROVIDERS: ATTEND Nurse Practitioner Adult Health
DX: C71.9 Malignant neoplasm of brain, unspecified (principal)
CPT/HCPCS: 36415; 80053; 82150; 82248; 83615; 83735; 84100; 84550; 85025

== ENCOUNTER 2023-02-03 00:29 | Emergency (ER) | payer MEDICARE ==
[2023-02-03 00:56] VITALS: RESP 18; TEMP 98.5
[2023-02-03] MEDS ORDERED: ONDANSETRON ODT 4 MG TAB PO STA (01:54)
[2023-02-03] MEDS ORDERED: SODIUM CHLORIDE 0.9% 1,000 ML IV STA (01:54)
[2023-02-03] MEDS ORDERED: KETOROLAC 15 MG/ML 1 ML VIAL IVP STA (02:22)
[2023-02-03] MEDS ORDERED: ONDANSETRON 4 MG/2 ML VIAL IVP STA (02:25)
[2023-02-03 02:41] LABS: Basophils % (A) 0 %; Eosinophils % (A) 0 %; HCT 44.3 % (34.0-46.0); HGB 15.2 gm/dL (11.4-16.0); Lymphocytes # (A) 0.8 k/uL (1.0-4.8); Lymphocytes % (A) 7 %; MCH 30.3 pg (25.0-35.0); MCHC 34.3 g/dL (31.0-37.0); MCV 88.5 fL (80.0-100.0); Mean Platelet Volume 6.8; Monocytes # (A) 0.5 k/uL (0-1.0); Monocytes % (A) 5 %; Neutrophils # (A) 9.3 k/uL (1.3-7.7); Neutrophils % (A) 86 %; Platelet Count 259 k/uL (150-450); Poikilocytosis Slight; RBC 5.01 m/uL (3.80-5.40); RDW 15.3 % (11.5-15.5); WBC 10.8 k/uL (3.8-10.6)
[2023-02-03 03:11] LABS: ALT 33 U/L (4-34); AST 21 U/L (14-36); African American GFR (CKD) >90 (>60 ml/min/1.73 sqM); Albumin 4.1 g/dL (3.5-5.0); Alkaline Phosphatase 86 U/L (38-126); Anion Gap 10 mmol/L; Blood Urea Nitrogen 12 mg/dL (7-17); Calcium 9.2 mg/dL (8.4-10.2); Carbon Dioxide 28 mmol/L (22-30); Chloride 92 mmol/L (98-107); Glucose 116 mg/dL (74-99); Lipase 90 U/L (23-300); Non-African American GFR(CKD) >90 (>60 ml/min/1.73 sqM); Potassium 4.5 mmol/L (3.5-5.1); Sodium 130 mmol/L (137-145); Total Bilirubin 0.8 mg/dL (0.2-1.3)
[2023-02-03 03:36] LABS: Appearance,Urine Clear (Clear); Bilirubin,Urine Negative (Negative); Blood,Urine Negative (Negative); Color,Urine Yellow; Glucose,Urine (UA) Negative (Negative); Ketones,Urine 2+ (Negative); Leukocyte Esterase,Urine Negative (Negative); Nitrite,Urine Negative (Negative); PH, Urine 6.5 (5.0-8.0); Protein,Urine Trace (Negative); Specific Gravity,Urine 1.016 (1.001-1.035); Urobilinogen,Urine <2.0 mg/dL (<2.0)
--- NOTE | 2023-02-03 04:54 | ED ---
Nausea/Vomiting/Diarrhea HPI - General Chief complaint: Nausea/Vomiting/Diarrhea Stated complaint: dehydration Time Seen by Provider: 02/03/23 01:53 Source: patient Mode of arrival: wheelchair Limitations: no limitations - History of Present Illness Initial comments: Patient is a 27-year-old female who presents to the emergency department for dehydration. Patient has had intermittent vomiting for the past 3 days with 4 episodes today, nonbloody. Patient has history of glioblastoma in clinical trial and epilepsy on Keppra BID. She presents with concern that she will not be able to keep her Keppra down without vomiting however she denies any vomiting around the time she took it today. No abdominal pain, diarrhea, melena, hematochezia. Patient does have nasal drainage and chills no reported fever. No chest pain or shortness of breath. No recent seizure activity. - Related Data Home Medications Medication Instructions Recorded Confirmed Escitalopram [Lexapro] 10 mg PO DAILY 07/30/22 12/28/22 HYDROcodone/APAP 10-325MG [[place] 1 tab PO Q6H PRN 09/08/22 12/28/22 10-325] Acyclovir [Zovirax] 400 mg PO BID 11/04/22 12/28/22 dexAMETHasone [Decadron] 4 mg PO TID 11/04/22 12/28/22 Acetaminophen Tab [Tylenol] 650 mg PO Q4H PRN 12/28/22 12/28/22 Butalb/APAP/Caff 50-325-40Mg 1 tab PO Q4H PRN 12/28/22 12/28/22 [Fioricet 50-325-40] LORazepam [Ativan] 0.5 mg PO DAILY PRN 12/28/22 12/28/22 Multivitamins, Thera [Multivitamin 1 tab PO DAILY 12/28/22 12/28/22 (formulary)] ondansetron HCL [Zofran] 8 mg PO Q6H PRN 12/28/22 12/28/22 Previous Rx's Medication Instructions Recorded levETIRAcetam [Keppra] 1,500 mg PO Q12HR #120 tab 12/30/22 Ondansetron Odt [Zofran Odt] 4 mg PO Q8HR PRN #10 tab 02/03/23 Allergies Allergy/AdvReac Type Severity Reaction Status Date / Time cephalexin AdvReac Nausea & Verified 02/03/23 00:57 Vomiting & Diarrhea Review of Systems ROS Statement: Those systems with pertinent positive or pertinent negative responses have been documented in the HPI. ROS Other: All systems not noted in ROS Statement are negative. Past Medical History Past Medical History: Cancer, Hypertension, Seizure Disorder Additional Past Medical History / Comment(s): .brain cancer-Glioblastoma, seizures r/t brain cancer, pt is curretly in a clinical trial History of Any Multi-Drug Resistant Organisms: None Reported Past Surgical History: No Surgical Hx Reported Additional Past Surgical History / Comment(s): craniotomy 2019 Past Anesthesia/Blood Transfusion Reactions: No Reported Reaction Past Psychological History: Depression Smoking Status: Never smoker Past Alcohol Use History: None Reported Past Drug Use History: None Reported General Exam Limitations: no limitations General appearance: alert, in no apparent distress Head exam: Present: atraumatic, normocephalic, normal inspection Eye exam: Present: normal appearance, PERRL, EOMI. Absent: scleral icterus, conjunctival injection, periorbital swelling ENT exam: Present: normal oropharynx Respiratory exam: Present: normal lung sounds bilaterally. Absent: respiratory distress, wheezes, rales, rhonchi, stridor Cardiovascular Exam: Present: regular rate, normal rhythm, normal heart sounds. Absent: systolic murmur, diastolic murmur, rubs, gallop, clicks GI/Abdominal exam: Present: soft, normal bowel sounds. Absent: distended, tenderness, guarding, rebound, rigid Neurological exam: Present: alert, oriented X3, CN II-XII intact Psychiatric exam: Present: normal affect, normal mood Skin exam: Present: warm, dry, intact, normal color. Absent: rash Course Vital Signs 02/03/23 02/03/23 00:51 04:56 Temperature 98.5 F Pulse Rate 100 82 Respiratory 18 18 Rate Blood Pressure 122/90 118/78 O2 Sat by Pulse 94 L 97 Oximetry Medical Decision Making - Medical Decision Making Was pt. sent in by a medical professional or institution (, PA, ACCURACY EXPERT, urgent care, hospital, or care home...) When possible be specific @ -No Did you speak to anyone other than the patient for history (EMS, parent, family, police, friend...)? What history was obtained from this source @ -No Did you review nursing and triage notes (agree or disagree)? Why? @ -I reviewed and agree with nursing and triage notes Were old charts reviewed (outside hosp., previous admission, EMS record, old EKG, old radiological studies, urgent care reports/EKG's, care home records)? Report findings @ -No old charts were reviewed Differential Diagnosis (chest pain, altered mental status, abdominal pain women, abdominal pain men, vaginal bleeding, weakness, fever, dyspnea, syncope, headache, dizziness, GI bleed, back pain, seizure, CVA, palpatations, mental health)? @ -Differential Abdominal Pain Women: Appendicitis, Cholecystitis, diverticulosis, ischemic bowel, pancreatitis, hepatitis, UTI, gastroenteritis, AAA, incarcerated hernia, bowel obstruction, constipation, inflammatory bowel, hepatitis, peptic ulcer disease, splenic infarction, perforated viscus, vulvitis, ovarian torsion, PID, kidney stone, placenta abruption, this is not meant to be an all-inclusive list EKG interpreted by me (3pts min.). @ -As above X-rays interpreted by me (1pt min.). @ -None done CT interpreted by me (1pt min.). @ -None done U/S interpreted by me (1pt. min.). @ -None done What testing was considered but not performed or refused? (CT, X-rays, U/S, labs)? Why? @ -Consider abdominal imaging lumbar patient does not have abdominal pain or tenderness What meds were considered but not given or refused? Why? @ -None Did you discuss the management of the patient with other professionals (daiana gaona i.mony Rogel, PA, ACCURACY EXPERT, lab, RT, psych nurse, oncology social worker, macerator operator, teacher, unclaimed property officer, environmental manager)? Give summary @ -No Was smoking cessation discussed for >3mins.? @ -No Was critical care preformed (if so, how long)? @ -No Were there social determinants of health that impacted care today? How? (Homelessness, low income, unemployed, alcoholism, drug addiction, transportation, low edu. Level, literacy, decrease access to med. care, intermediate, rehab)? @ -No Was there de-escalation of care discussed even if they declined (Discuss DNR or withdrawal of care, Hospice)? DNR status @ -No What co-morbidities impacted this encounter? (DM, HTN, Smoking, COPD, CAD, Cancer, CVA, ARF, Chemo, Hep., AIDS, mental health diagnosis, sleep apnea, morbid obesity)? @ -None Was patient admitted / discharged? Hospital course, mention meds given and route, prescriptions, significant lab abnormalities, going to OR and other pertinent info. @ -Patient presenting with concern for dehydration secondary to vomiting. She does appear mildly dehydrated. Laboratory studies obtained. There is minimal leukocytosis at 10.8. There is hyponatremia at 1:30 which was treated with normal saline. Lactic within normal limits. Urinalysis reveals 2+ ketones. Patient given large fluid bolus and Zofran. She was observed closely in the emergency department without any further episodes of vomiting. She passed PO challenge and will be discharged with Zofran. We discussed. Strict return parameters. Undiagnosed new problem with uncertain prognosis? @ -No Drug Therapy requiring intensive monitoring for toxicity (Heparin, Nitro, Insulin, Cardizem)? @ -No Were any procedures done? @ -No Diagnosis/symptom? @ -Nausea and vomiting, dehydration Acute, or Chronic, or Acute on Chronic? @ -acute Uncomplicated (without systemic symptoms) or Complicated (systemic symptoms)? @ -uncomplicated Side effects of treatment? @ -No Exacerbation, Progression, or Severe Exacerbation? @ -[No] Poses a threat to life or bodily function? How? (Chest pain, USA, PR, pneumonia, PE, COPD, DKA, ARF, appy, cholecystitis, CVA, Diverticulitis, Homicidal, Suicidal, threat to staff... and all critical care pts) @ -[No] Dr. Justice is my attending - Lab Data Result diagrams: 02/03/23 02:19 02/03/23 02:19 Lab Results 02/03/23 02/03/23 02/03/23 Range/Units 02:19 02:19 02:19 WBC 10.8 H (3.8-10.6) k/uL RBC 5.01 (3.80-5.40) m/uL Hgb 15.2 (11.4-16.0) gm/dL Hct 44.3 (34.0-46.0) % MCV 88.5 (80.0-100.0) fL MCH 30.3 (25.0-35.0) pg MCHC 34.3 (31.0-37.0) g/dL RDW 15.3 (11.5-15.5) % Plt Count 259 (150-450) k/uL MPV 6.8 Neutrophils % 86 % Lymphocytes % 7 % Monocytes % 5 % Eosinophils % 0 % Basophils % 0 % Neutrophils # 9.3 H (1.3-7.7) k/uL Lymphocytes # 0.8 L (1.0-4.8) k/uL Monocytes # 0.5 (0-1.0) k/uL Eosinophils # 0.0 (0-0.7) k/uL Basophils # 0.0 (0-0.2) k/uL Poikilocytosis Slight Sodium 130 L (137-145) mmol/L Potassium 4.5 (3.5-5.1) mmol/L Chloride 92 L (98-107) mmol/L Carbon Dioxide 28 (22-30) mmol/L Anion Gap 10 mmol/L BUN 12 (7-17) mg/dL Creatinine 0.52 (0.52-1.04) mg/dL Est GFR (CKD-EPI)AfAm >90 (>60 ml/min/1.73 sqM) Est GFR (CKD-EPI)NonAf >90 (>60 ml/min/1.73 sqM) Glucose 116 H (74-99) mg/dL Plasma Lactic Acid Jermain (0.7-2.0) mmol/L Calcium 9.2 (8.4-10.2) mg/dL Total Bilirubin 0.8 (0.2-1.3) mg/dL AST 21 (14-36) U/L ALT 33 (4-34) U/L Alkaline Phosphatase 86 (38-126) U/L Total Protein 7.0 (6.3-8.2) g/dL Albumin 4.1 (3.5-5.0) g/dL Lipase 90 (23-300) U/L Urine Color Yellow Urine Appearance Clear (Clear) Urine pH 6.5 (5.0-8.0) Ur Specific [place] 1.016 (1.001-1.035) Urine Protein Trace H (Negative) Urine Glucose (UA) Negative (Negative) Urine Ketones 2+ H (Negative) Urine Blood Negative (Negative) Urine Nitrite Negative (Negative) Urine Bilirubin Negative (Negative) Urine Urobilinogen <2.0 (<2.0) mg/dL Ur Leukocyte Esterase Negative (Negative) Influenza Type A (PCR) (Not Detectd) Influenza Type B (PCR) (Not Detectd) RSV (PCR) (Not Detectd) SARS-CoV-2 (PCR) (Not Detectd) 02/03/23 02/03/23 Range/Units 02:19 02:19 WBC (3.8-10.6) k/uL RBC (3.80-5.40) m/uL Hgb (11.4-16.0) gm/dL Hct (34.0-46.0) % MCV (80.0-100.0) fL MCH (25.0-35.0) pg MCHC (31.0-37.0) g/dL RDW (11.5-15.5) % Plt Count (150-450) k/uL MPV Neutrophils % % Lymphocytes % % Monocytes % % Eosinophils % % Basophils % % Neutrophils # (1.3-7.7) k/uL Lymphocytes # (1.0-4.8) k/uL Monocytes # (0-1.0) k/uL Eosinophils # (0-0.7) k/uL Basophils # (0-0.2) k/uL Poikilocytosis Sodium (137-145) mmol/L Potassium (3.5-5.1) mmol/L Chloride (98-107) mmol/L Carbon Dioxide (22-30) mmol/L Anion Gap mmol/L BUN (7-17) mg/dL Creatinine (0.52-1.04) mg/dL Est GFR (CKD-EPI)AfAm (>60 ml/min/1.73 sqM) Est GFR (CKD-EPI)NonAf (>60 ml/min/1.73 sqM) Glucose (74-99) mg/dL Plasma Lactic Acid Jermain 1.0 (0.7-2.0) mmol/L Calcium (8.4-10.2) mg/dL Total Bilirubin (0.2-1.3) mg/dL AST (14-36) U/L ALT (4-34) U/L Alkaline Phosphatase (38-126) U/L Total Protein (6.3-8.2) g/dL Albumin (3.5-5.0) g/dL Lipase (23-300) U/L Urine Color Urine Appearance (Clear) Urine pH (5.0-8.0) Ur Specific [place] (1.001-1.035) Urine Protein (Negative) Urine Glucose (UA) (Negative) Urine Ketones (Negative) Urine Blood (Negative) Urine Nitrite (Negative) Urine Bilirubin (Negative) Urine Urobilinogen (<2.0) mg/dL Ur Leukocyte Esterase (Negative) Influenza Type A (PCR) Not Detected (Not Detectd) Influenza Type B (PCR) Not Detected (Not Detectd) RSV (PCR) Not Detected (Not Detectd) SARS-CoV-2 (PCR) Not Detected (Not Detectd) Disposition Clinical Impression: Nausea and vomiting, Dehydration Disposition: HOME SELF-CARE Condition: Good Instructions (If sedation given, give patient instructions): Acute Nausea and Vomiting (ED) Additional Instructions: Increase fluid intake. Take medication as directed. Return to emergency department if you experience new, concerning, or worsening symptoms. Prescriptions: Ondansetron Odt [Zofran Odt] 4 mg PO Q8HR PRN #10 tab PRN Reason: Nausea Is patient prescribed a controlled substance at d/c from ED?: No Referrals: Jose Alejandro Segal MD [Primary Care Provider] - 1-2 days
[2023-02-03 04:56] VITALS: BP 118/78; PULSE 82
== END 2023-02-03 05:00 | disposition home or self-care (01) ==
LOC: EC 00:29
DX: R11.2 Nausea with vomiting, unspecified (principal); E86.0 Dehydration; F32.A Depression, unspecified; I10 Essential (primary) hypertension; Z79.899 Other long term (current) drug therapy; Z88.1 Allergy status to other antibiotic agents; Z20.822 Contact with and (suspected) exposure to COVID-19
CPT/HCPCS: 36415; 80053; 83605; 83690; 85025; 81003; 87636; 99284; 96374; 96375; 96361; J2405; J1885

== ENCOUNTER → 2023-02-07 | Outpatient (CLI) | payer MEDICARE ==
--- NOTE | 2023-02-09 19:18 | MR ---
EXAMINATION TYPE: MR brain wo/w con DATE OF EXAM: 02/07/2023 COMPARISON: CT brain 12/28/2022 HISTORY: 27-year-old female C71.9, Recent blindness both eyes, nausea, headaches. Hx glioblastoma 20 19. TECHNIQUE: Multiplanar, multisequence images of the brain and brainstem were acquired before and aft er administration of 10.5 mL IV Gadavist. Diffusion weighted imaging is performed. FINDINGS: No evidence for acute infarction. No midline shift, herniation, or extra-axial fluid collection. No h ydrocephalus. Redemonstrated left posterior cerebellar craniotomy flap with underlying resection changes but with r esidual disorganized residual left cerebellar hemisphere tissue. There is abnormal increased T2 weigh luis signal throughout also crossing across the midline into the anterior right cerebellum, cerebellar vermis, and into the dorsal midbrain, dorsal grace, and right side of the medulla. There is irregular enhancement noted throughout the residual left cerebellar parenchyma and also sera g the paramedian right cerebellar hemisphere, extending up into the cerebellar vermis. Numerous foci of susceptibility artifact likely relating to postsurgical change. No abnormal enhancement for abnormal T2-weighted signal in the supratentorium. Mild mucosal thickening throughout the ethmoid air cells. Orbits and globes appear intact. Partially empty sella. Dural venous sinuses are patent. IMPRESSION: Left cerebellar postresection changes with overlying craniotomy flap. The disorganized residual left cerebellar tissue shows increased T2 signal changes and irregular enhancement throughout. These abnor mal signal changes and enhancement extend up into the cerebellar vermis and paramedian right cerebell ar hemisphere. Bright T2 signal within the dorsal brainstem could reflect posttreatment change or sub tle tumor infiltration. No midline shift or herniation. No abnormal signal changes seen along the sup ratentorium.
== END | disposition home or self-care (01) ==
LOC: RADMRIMAIN 13:55
PROVIDERS: ATTEND Psychiatry & Neurology Neurology
DX: C71.9 Malignant neoplasm of brain, unspecified (principal); H54.3 Unqualified visual loss, both eyes
CPT/HCPCS: 70553; A9585